=== PATIENT | female | born 1970 | race Caucasian/White ===

== ENCOUNTER → 2018-02-18 10:26 | Outpatient (CLI) | payer OTHER, SELFPAY ==
[2018-02-19 09:01] LABS: HIV Screen 4th Generation wRfx Non Reactive (Non Reactive)
[2018-02-19 14:27] LABS: Hepatitis C Antibody <0.1 s/co ratio (0.0-0.9); Rapid Plasma Reagin Ab Titer Non Reactive (NonRea<1:1)
== END ==
PROVIDERS: PCP Nurse Practitioner Family; Visit Provider Obstetrics & Gynecology
DX: Z20.2 Contact with and (suspected) exposure to infections with a predominantly sexual mode of transmission (principal); R10.9 Unspecified abdominal pain
CPT/HCPCS: 36415; 86592; 86703; 87380; G0432

== ENCOUNTER → 2018-02-26 10:52 | Outpatient (CLI) | payer OTHER, SELFPAY ==
--- NOTE | 2018-02-26 10:55 | US_ITS ---
US transvaginal HISTORY: ITS.REASON: US T/V- Pelvic/Abdominal pain ORDERING PHYSICIAN: Beata Mohr MD PATIENT AGE: 47 years FINDINGS: UTERUS: The uterus measures 7 x 2 x 3 cm. Combined endometrial thickness is 2 mm. There is a well-circumscribed 1.1 x 1.17 m area of decreased echogenicity along the posterior aspect of the uterus body consistent with a fibroid RIGHT OVARY: 1.4 x 0.7 cm, unremarkable LEFT OVARY: 1.9 x 1 cm, unremarkable CUL-DE-SAC FLUID: No cul-de-sac fluid apparent OTHER FINDINGS: None IMPRESSION: 1 cm uterine fibroid otherwise negative pelvic ultrasound
== END ==
PROVIDERS: PCP Nurse Practitioner Family; Visit Provider Obstetrics & Gynecology
DX: R10.9 Unspecified abdominal pain (principal)
CPT/HCPCS: 76830

== ENCOUNTER 2018-07-30 15:30 | Outpatient (RCR) | payer OTHER, SELFPAY ==
--- NOTE | 2018-06-30 12:35 | HMH.PTOPEV ---
PT Outpatient Evaluation Rehab PT Outpatient Evaluation Start: 06/30/18 12:09 Freq: Status: Active Protocol: Document 06/30/18 12:09 PDESEROUX (Rec: 06/30/18 12:34 [email or web address] [id number]) Electronically Signed By Bharat Ramachandran, EDMOND 06/30/18 12:09 Outpatient Therapy Subjective History Subjective History Pt. is a 47 year old female who presents to outpatient PT for LB pain and radicular symptoms on her L side since December 2017 after lifting/picking rocks up in her garden. Pt. reports LLE radicular symptoms this morning (06/30/18). Pt. reported having injections in bilateral hips on 2 different occasions that provided relief for a period of time, but worsened in a few weeks. Pt. denies recent diagnostic imaging. PMH includes bilateral carpel tunnel surgery and installation of a cardiovascular heart stent Apr 3 years ago. Current medication includes Naproxen and a prescribed steroid for her LB that she ran out this past weekend. Chief Complaint Pain Symptom Type Burning Numbness Tingling Symptoms Relieved By Rest/Positioning Heat Prescription Meds Symptoms Aggravated By Bending/Stooping Physical Activity Twisting Lifting Prior Functional Limitations None Current Functional Limitations Reaching Lifting Housework Sleeping Squatting Bending/Stooping Symptom Description Constant and Continuous Level of pain today (0-10) 4 Pain scale - at its best (0-10) 0 Pain scale - at its worst (0-10) 9 Lumbopelvic Eval Posture Thoracic Spine Posture Standing Position Increased Kyphosis Lumbar Spine Posture Standing Position Flexed Assistive device Assistive Devices None / NA Gait Observation General Gait Pattern Observation Decrease Weight B
== END 2018-07-30 15:35 | disposition home or self-care (01) ==
LOC: PT 15:30
PROVIDERS: Visit Provider Emergency Medicine
DX: M54.30 Sciatica, unspecified side (principal)
CPT/HCPCS: 97010; 97012; 97014; 97110; 97140; 97163; G0283

== ENCOUNTER → 2018-08-11 07:52 | Outpatient (CLI) | payer OTHER, SELFPAY ==
--- NOTE | 2018-08-11 07:54 | XR_ITS ---
EXAM: XR lumbar spine min 4V HISTORY: ITS.REASON: pain ORDERING PHYSICIAN: Monica Yoon PATIENT AGE: 47 years COMPARISON: None FINDINGS: Normal alignment. No fracture or dislocation. No lytic or blastic change. There is degenerative disc disease at L2-L3 and to a lesser degree at L3-L4. There is straightening of the lumbar lordosis. IMPRESSION: Degenerative disc disease at L2-L3 and L3-L4
--- NOTE | 2018-08-11 07:54 | XR_ITS ---
XR hip LT 2-3V w/pelvis HISTORY: Left hip pain ITS.REASON: pain ORDERING PHYSICIAN: Monica Yoon PATIENT AGE: 47 years COMPARISON: None FINDINGS: No fracture or dislocation is evident. No significant degenerative change. No lytic or blastic change. Unremarkable soft tissues IMPRESSION: Negative hip
== END ==
PROVIDERS: PCP Emergency Medicine; Visit Provider Nurse Practitioner Family
DX: M25.552 Pain in left hip (principal)
CPT/HCPCS: 72110; 73502

== ENCOUNTER → 2018-11-30 13:39 | Outpatient (POV) | payer OTHER, SELFPAY ==
[2018-11-30 13:53] VITALS: BP 158/89; PULSE 110; RESP 18; O2SAT 98
--- NOTE | 2018-11-30 14:08 | HMH.PMCON ---
Assessment and Plan (1) Lumbar radiculopathy Current visit: Yes Status: Chronic Category: Medical Code(s): M54.16 - Radiculopathy, lumbar region (2) Degenerative disc disease, lumbar Current visit: No Status: Chronic Category: Medical Code(s): M51.36 - Other intervertebral disc degeneration, lumbar region - Assessment and plan all Dx Assessment and Plan for all problems:: We will schedule an L4-L5 lumbar epidural steroid injection given the efficacy of this in the past I do believe it would be beneficial we will also start her on Neurontin 100 mg 1 p.o. nightly. I will follow-up with the patient after injection and reassess her symptoms at that time. Dr. Simpson has reviewed this note and agrees with this plan of care. This note was dictated using voice recognition software and may contain errors or omissions HPI - Data of Consult Consult date: 11/30/18 Requesting Physician: Itzel Mcnair APRN Primary Care Provider: Hari Guallpa APRN - Consult Narrative Reason for consult: Back pain History of present illness: Ms. Blandon is a 47 year old female who presents today for consultation in regards to her low back pain and left leg pain. Patient has low back pain secondary to degenerative disc disease and disc bulge. She has numbness and tingling in her left leg. She rates her pain a 5 out of 10. Patient has had epidural injections in the past she got 80-90% relief for up over 2 months. Patient would like to repeat this. She is not on any anticoagulation therapy. She is continuing a home stretching program. She is currently on anti-inflammatories. CC: Itzel Mcnair APRN [facility] History I have reviewed the patient's past medical history: Yes Medical History: Reports:: Hyperlipidemia, Hypertension Denies:: Anxiety, Depression, Diabetes Mellitus Type 1, Migraine, MRSA, Seizures Laterality Cases: Bilateral: Carpal Tunnel Release Other Surgeries: Yes: Coronary Stent, Other Amputation: No Fractures: No - *Social History Smoking Status: Current every day smoker Tobacco Type: cigarettes # Packs/Day (cigarettes): 1 Alcohol Intake: never Substance Use Type: denies use *Occupational Status:: employed Housing: house Household Members: spouse *Travel in the last 8 weeks: None - Psychiatric History Expresses thoughts of harming self/others: None Suicide Plan Description: No Plan Pschychiatric History:: Denies:: Anxiety, Depression Family Hx:: Heart Attack, Diabetes Review of Systems - Review of Systems ROS General: no recent weight change, no fever, no sleep disturbances Respiratory: no cough, no shortness of air, no recurring pulmonary infections Cardiovascular/Peripheral Vascular: No chest pain, No palpitations, no edema, no shortness of breath. Gastrointestinal: no incontinence, normal bowel movements reported Genitourinary: no incontinence Musculoskeletal: Back pain, left leg pain Psychiatric: normal mood/ affect Neurological: [denies weakness in extremities], [denies balance issues] Meds Home Medications Medication Instructions Recorded Confirmed Type aspirin 81 mg tablet,delayed 81 mg PO QDAY 10/01/17 11/25/18 History release acetaminophen ER 650 mg 650 mg PO Q8H PRN #90 tab 11/20/18 11/25/18 Rx tablet,extended release prednisone 20 mg tablet 20 mg PO BID 5 Days #10 tab 11/20/18 11/25/18 Rx Allergies Allergy/AdvReac Type Severity Reaction Status Date / Time lisinopril [LISINOPRIL] Allergy Mild COUGH Verified 11/25/18 15:15 Objective Vital signs: Pulse Resp BP Pulse Ox 110 H 18 158/89 H 98 11/30/18 13:53 11/30/18 13:53 11/30/18 13:53 11/30/18 13:53 Narrative: Physical Exam General: Alert and oriented x3, no acute distress, pleasant and cooperative, [on room air] Lungs: Resps E/U, Symmetrical chest expansion, Eyes: PERRL Musculoskeletal: Flexion and extension of lumbar spine somewhat guarded secondary to pain, d
--- NOTE | 2018-11-30 14:11 | P.CONS_ITS ---
Assessment and Plan (1) Lumbar radiculopathy Current visit: Yes Status: Chronic Category: Medical Code(s): M54.16 - Radiculopathy, lumbar region (2) Degenerative disc disease, lumbar Current visit: No Status: Chronic Category: Medical Code(s): M51.36 - Other intervertebral disc degeneration, lumbar region - Assessment and plan all Dx Assessment and Plan for all problems:: We will schedule an L4-L5 lumbar epidural steroid injection given the efficacy of this in the past I do believe it would be beneficial we will also start her on Neurontin 100 mg 1 p.o. nightly. I will follow-up with the patient after injection and reassess her symptoms at that time. Dr. Simpson has reviewed this note and agrees with this plan of care. This note was dictated using voice recognition software and may contain errors or omissions HPI - Data of Consult Consult date: 11/30/18 Requesting Physician: Itzel Mcnair APRN Primary Care Provider: Hari Guallpa APRN - Consult Narrative Reason for consult: Back pain History of present illness: Ms. Blandon is a 47 year old female who presents today for consultation in regards to her low back pain and left leg pain. Patient has low back pain secondary to degenerative disc disease and disc bulge. She has numbness and tingling in her left leg. She rates her pain a 5 out of 10. Patient has had epidural injections in the past she got 80-90% relief for up over 2 months. Patient would like to repeat this. She is not on any anticoagulation therapy. She is continuing a home stretching program. She is currently on anti- inflammatories. CC: Itzel Mcnair APRN [facility] History I have reviewed the patient's past medical history: Yes Medical History: Reports:: Hyperlipidemia, Hypertension Denies:: Anxiety, Depression, Diabetes Mellitus Type 1, Migraine, MRSA, Seizures Laterality Cases: Bilateral: Carpal Tunnel Release Other Surgeries: Yes: Coronary Stent, Other Amputation: No Fractures: No - *Social History Smoking Status: Current every day smoker Tobacco Type: cigarettes # Packs/Day (cigarettes): 1 Alcohol Intake: never Substance Use Type: denies use *Occupational Status:: employed Housing: house Household Members: spouse *Travel in the last 8 weeks: None - Psychiatric History Expresses thoughts of harming self/others: None Suicide Plan Description: No Plan Pschychiatric History:: Denies:: Anxiety, Depression Family Hx:: Heart Attack, Diabetes Review of Systems - Review of Systems ROS General: no recent weight change, no fever, no sleep disturbances Respiratory: no cough, no shortness of air, no recurring pulmonary infections Cardiovascular/Peripheral Vascular: No chest pain, No palpitations, no edema, no shortness of breath. Gastrointestinal: no incontinence, normal bowel movements reported Genitourinary: no incontinence Musculoskeletal: Back pain, left leg pain Psychiatric: normal mood/ affect Neurological: [denies weakness in extremities], [denies balance issues] Meds Home Medications Medication Instructions Recorded Confirmed Type aspirin 81 mg tablet,delayed 81 mg PO QDAY 10/01/17 11/25/18 History release acetaminophen ER 650 mg 650 mg PO Q8H PRN #90 tab 11/20/18 11/25/18 Rx tablet,extended release prednisone 20 mg tablet 20 mg PO BID 5 Days #10 tab 11/20/18 11/25/18 Rx Allergies
== END ==
PROVIDERS: PCP Nurse Practitioner Family; Visit Provider Clinical Nurse Specialist Family Health
DX: M51.16 Intervertebral disc disorders with radiculopathy, lumbar region (principal)
CPT/HCPCS: 99202

== ENCOUNTER → 2018-12-28 09:11 | Outpatient (POV) | payer OTHER, SELFPAY ==
[2018-12-28 09:27] VITALS: BP 153/98; PULSE 128; RESP 18; O2SAT 99; BMI 23.9
--- NOTE | 2018-12-28 09:57 | P.CONS_ITS ---
[facility] Pain Management SOAP Note Subjective:: Patient is a pleasant 48-year-old female who presents today for follow-up after a left SI joint injection. Patient did not get any relief from this she went to the ER recently with complaint of worsening back pain. Patient did have a new CT scan. There was a continuation of the L4-L5 paracentral and foraminal disc protrusion On the left side. Patient and I had a discussion in regards to plan of care. Patient states the gabapentin does help somewhat she rates her pain a 7 out of 10 today. ROS General: no recent weight change, no fever, no sleep disturbances Respiratory: no cough, no shortness of air, no recurring pulmonary infections Cardiovascular/Peripheral Vascular: No chest pain, No palpitations, no edema, no shortness of breath. Gastrointestinal: no incontinence, normal bowel movements reported Genitourinary: no incontinence Musculoskeletal: Back pain, leg pain Psychiatric: normal mood/ affect Neurological: [denies weakness in extremities], [denies balance issues] Objective:: Physical Exam General: Alert and oriented x3, no acute distress, pleasant and cooperative, [on room air] Lungs: Resps E/U, Symmetrical chest expansion, Eyes: PERRL Musculoskeletal: Flexion and extension of lumbar spine somewhat guarded secondary to pain, deep tendon reflexes normal, strength in upper and lower extremities [5/5], [abnormal gait noted] positive straight leg raise test on 30 degrees on the left side. Neurological: speech clear, administrative sales assistant equal, no gross sensory deficits Assessment:: Degenerative disc disease lumbar spine with lumbar radiculopathy, bulging disc Plan:: We will schedule L4-L5 left transforaminal epidural steroid injection. We will also set her up with a neurosurgeon for consultation. Patient has been instructed to bring her MRI disc. We will also increase her gabapentin to [address] Simpson has reviewed this note and agrees with this plan of care. This note was dictated using voice recognition software and may contain errors or omissions
== END ==
PROVIDERS: PCP Physician Assistant; Visit Provider Clinical Nurse Specialist Family Health
DX: M51.16 Intervertebral disc disorders with radiculopathy, lumbar region (principal)
CPT/HCPCS: 99212

== ENCOUNTER → 2019-05-11 16:05 | Outpatient (CLI) | payer OTHER, SELFPAY ==
--- NOTE | 2019-05-11 16:10 | MR_ITS ---
PROCEDURE: MR LUMBAR SPINE WO CON CLINICAL INDICATION: LUMBAR SPINE PAIN Low back pain, left leg pain and numbness and tingling COMPARISON: SPLUMBWO CT lumbar spine wo con from 12/22/2018 TECHNIQUE: Standard multiplanar multiecho sequences are performed without contrast. 3-D MIP and myelographic images are also rendered and reviewed FINDINGS: There is normal alignment with slight reversal of the lumbar lordosis. The spinal cord ends at the L1 level. T11-T12: Mild disc desiccation. T12-L1: Mild degenerative disc disease. L1-L2: Mild degenerative disc disease with small Schmorl's nodes along the endplates L2-L3: Degenerate disc disease with minimal bulging disc and type 1 endplate changes anteriorly. L3-L4: Degenerate disc disease with mild bulging disc. There is mild facet and ligamentum hypertrophic change. The disc is slightly eccentric toward the right with mild right lateral recess and foraminal narrowing. L4-5: Mild degenerative disc disease. There is a small left paracentral and foraminal disc herniation. The disc is slightly extruded superiorly. There is impingement upon the exiting L4 nerve root L5-S1: Unremarkable. Incidental note made of a 2.4 cm right renal cyst. IMPRESSION: 1. Small left paracentral and foraminal disc herniation with superior extrusion of the disc at L4-5 2. Multilevel degenerative changes as detailed above. Dictated by: Fab Aguirre MD 05/12/2019 11:21 Signed by: <Electronically signed by Fab Aguirre MD in [place]> 05/12/2019 11:21
== END ==
PROVIDERS: PCP Physician Assistant; Visit Provider Orthopaedic Surgery
DX: M54.5 Low back pain (principal)
CPT/HCPCS: 72148; 76376

== ENCOUNTER → 2019-06-18 11:58 | Outpatient (CLI) | payer OTHER, SELFPAY ==
[2019-06-18 11:59] LABS: Microscopic, Urine URINE MICROSCOPIC (MICROSCOPIC)
--- NOTE | 2019-06-18 12:12 | XR_ITS ---
PROCEDURE: XR CHEST 2V CLINICAL HISTORY: Pre OP COMPARISON: CXR1 CHEST-PORTABLE from 05/01/2015 CXR CHEST(2 VIEWS-NOT PORTABLE) from 08/31/2015 CXR1 CHEST-PORTABLE from 05/27/2017 FINDINGS: The cardiomediastinal silhouette and pulmonary vascularity are within normal limits. Mild to moderate emphysematous changes are noted with hyperexpansion of the lung kendrick and flattening and depression of the hemidiaphragms. There is no infiltrate. There is no pleural fluid. There are moderate degenerative changes midthoracic spine IMPRESSION: Mild to moderate COPD, no acute chest pathology noted Dictated by: Dr. Santos Jo MD 06/18/2019 12:[address] Santos Jo MD in [place] 06/18/2019 12:28
[2019-06-18 12:26] LABS: Appearance,Urine CLEAR (Clear); Bilirubin,Urine Negative (Negative); Blood, Urine Negative (Negative); Color,Urine YELLOW (Yellow); Glucose,Urine (UA) Negative (Negative); Ketones,Urine Negative (Negative); Leukocyte Esterase,Urine Negative (Negative); Nitrate,Urine Negative (Negative); PH,Urine 6.5 (5.0-8.5); Protein,Urine Negative (Negative); Urobilinogen,Urine 0.2 EU/dl (0.2)
--- NOTE | 2019-06-18 12:31 | ECG_ITS ---
APPROVED REPORT Exam: Resting ECG HR:128 bpm ECG Measurements Heart Rate [address] 128 P 79 QRSd 72 QRS 99 QT 304 T 53 QTc 443 <Conclusion> Sinus tachycardia Right atrial enlargement Rightward axis Nonspecific ST-T abnormalities Abnormal ECG Electronically signed by : Abdi Tijerina, 06/18/2019 18:24:11
[2019-06-18 12:37] LABS: Basophils # 0.1 K/mm3 (0-0.2); Basophils % 0.7 % (0.1-2.0); Eosinophils # 0.4 K/mm3 (0.0-0.4); Hematocrit 51.4 % (37.0-47.0); Hemoglobin 15.9 g/dL (12.2-16.2); Lymphocytes # 2.3 K/mm3 (0.7-4.5); Lymphocytes % 22.9 % (10-50); Mean Corpuscular Volume 96.8 fl (81-99); Mean Platelet Volume 8.5 fl (7.4-10.4); Monocytes # 0.7 K/mm3 (0.1-1.0); Monocytes % 6.7 % (1.7-9.3); Neutrophils # 6.7 K/mm3 (1.8-7.8); Neutrophils % 65.6 % (37.0-80.0); Platelet Count 203 K/mm3 (142-424); Red Blood Count 5.31 M/mm3 (4.20-5.40); Red Cell Distribution Width 13.5 % (11.5-17.5); White Blood Count 10.2 K/mm3 (4.8-10.8)
[2019-06-18 12:50] LABS: Bacteria,Urine Trace /lpf; Squamous Epithelial Cell,Urine Occasional #/hpf (0-5)
[2019-06-18 12:51] LABS: Activated Partial Thrombo Time 26.8 seconds (23.6-34.0); INR 0.95 (0.9-1.1); Prothrombin Time 9.9 seconds (9.4-11.8)
[2019-06-18 13:17] LABS: Alanine Aminotransferase 27 U/L (12-78); Albumin Level 4.2 gm/dL (3.4-5.0); Albumin/Globulin Ratio 1.3 (1.1-1.8); Alkaline Phosphatase 66 U/L (46-116); Anion Gap 14.8 mEq/L (5-15); Aspartate Amino Transferase 21 U/L (15-37); Bilirubin,Total 0.5 mg/dL (0.2-1.0); Blood Urea Nitrogen 15 mg/dL (7-18); Calcium 9.9 mg/dL (8.5-10.1); Carbon Dioxide 27 mmol/L (21.0-32.0); Chloride 102 mmol/L (98-107); Creatinine,Serum 0.65 mg/dL (0.55-1.02); Estimated Glomerular Filt Rate 96 ml/min (>60); GFR (African American) 117 ML/MIN (>60); Globulin 3.3 gm/dl (1.3-3.2); Glucose 92 mg/dL (74-106); Potassium 3.8 mmoL/L (3.5-5.1); Sodium 140 mmol/L (136-145); Total Protein,Serum 7.5 gm/dL (6.4-8.2)
== END ==
PROVIDERS: Visit Provider Physician Assistant
DX: M51.36 Other intervertebral disc degeneration, lumbar region (principal); Z01.818 Encounter for other preprocedural examination; Z51.81 Encounter for therapeutic drug level monitoring
CPT/HCPCS: 36415; 71046; 80053; 81001; 85025; 85610; 85730; 93005

== ENCOUNTER → 2019-06-25 07:17 | Outpatient (CLI) | payer OTHER, SELFPAY ==
--- NOTE | 2019-06-25 07:18 | CA_ITS ---
APPROVED REPORT Exam: Pharmacologic Technologist: aaliyah kolb, Ht: 5 ft 9 in Wt: 150 lbs BSA: 1.83 m2 HR: 74 bpm BP: 126/77 mmHg Rhythm: NSR Indications: Pre-OP Medical History Medications: Asa,,,,, Allergies: Lisinopril Cardiac Risk Factors: Smoking, FHX of CAD Stress Test Details Test: LEXISCAN HR Resting HR: 79 bpm Max Heart Rate (APMHR): 170 bpm Max HR Achieved: 127 bpm Target HR (85% APMHR): 144 bpm % of APMHR: 74 Recovery HR: 109 bpm BP Resting BP: 126/77 mmHg Max BP: 138/76 mmHg Recovery BP: 127.0/82.0 mmHg ECG Resting ECG: Normal Sinus Arrhythmia: None Clinical Exercise duration: 04:00 min Highest Stage Achieved: Exercise capacity: 1.0 METs Stress ECG Conclusion Lexiscan Protocol completed. C/O SOB at peak infusion. Symptoms: No CP, SOB at peak infusion. Arrhythmias/Ectopy: None ST-T Changes: Greater than 1.5mm ST Depression in AVF. Otherwise less than 1.5mm ST Depression Non-Diagnostic Lexiscan Images to follow. Test Summary RECOVERY 04:08 . . 102 . 116/ 74 . . Stage 1 01:00 . . 122 . . . . Stage 2 01:00 . . 126 . 137/ 79 . . Stage 3 01:00 . . 114 . 128/ 84 . . Stage 4 01:00 . . 111 . 138/ 76 . Stop exercise at 04:00 RECOVERY 01:00 . . 100 . 127/ 82 . . RECOVERY 02:00 . . 99 . 118/ 78 . . RECOVERY 03:00 . . 110 . 124/ 70 . . RECOVERY 04:00 . . 96 . 116/ 74 . . RECOVERY 04:08 . . 102 . 116/ 74 . . Electronically signed by : Damián Nicolas, 06/25/2019 13:18:28
--- NOTE | 2019-06-25 07:18 | CA_ITS ---
APPROVED REPORT EXAM: Comprehensive 2D, Doppler, and color-flow Echocardiogram Body Mechanic Apprentice: Lorie Gordon CRT Ht: 5 ft 7 in Wt: 149lbs BSA: 1.78 BP: 131/99 mmHg Indications: CAD, [place], Stent, pre-op back surgery 2D Dimensions LVOT 2.00 cm (M/F) 1.5-2.5 M-Mode Dimensions RVDd 2.60 cm (0.9-2.6) LA Diam 3.60 cm (1.9-4.0) LVDd 4.60 cm (3.5-5.7) Ao Diam 2.70 cm (2.0-3.7) LVDs 3.30 cm (3.5-5.7) IVSd 0.80 cm (0.6-1.1) PWd 0.70 cm (0.6-1.1) EF (Teich) 54.70% FS 28.30% EDV (Teich) 97.30 mL ESV (Teich) 44.10 mL LV Diastology E/A Ratio 1.20 MED E' 8.29 (< 7 cm/sec) E'/MED E' Ratio 9.80 (>14) LAT E' 8.29 (<10 cm/sec) E/LAT E' Ratio 9.80 (>14) Aortic Valve AoV Peak Nacho. 126.00 (50-130 cm/s) AO Peak GR. 6.00 mmHg Mitral Valve MV E Max Nacho. 81.40 (40-130 cm/s) MV A Velocity 69.10 (40-130 cm/s) E/A Ratio 1.20 Pulmonary Valve PA Accel Time 180.00 (>120 msec) Left Ventricle Left atrium is mildly enlarged, left ventricle is normal size, there is no concentric left ventricular hypertrophy, visually estimated ejection fraction 50% with no regional wall motion abnormality, endocardial surfaces are poorly visualized. Grade 1 diastolic dysfunction seen without tissue Doppler evidence of raise left atrial pressure. Right Ventricle Right atrium and right ventricular normal size and contractility. Aortic Valve Aortic valve is minimally thickened and fibrosed. Mitral Valve Mitral valve is grossly normal, there is mild mitral regurgitant Tricuspid Valve Tricuspid valve is grossly normal, there is mild tricuspid regurgitation. Pulmonic Valve Pulmonic valve is poorly visualized. Great Vessels Aortic root is normal size. Pericardium No significant pericardial effusion noted. Conclusion 1. Mildly enlarged left atrium, normal left ventricular size, visually estimated ejection fraction 50% with no regional wall motion abnormality, grade 1 diastolic dysfunction seen without tissue Doppler evidence of raise left atrial pressure. 2. Mild mitral and tricuspid regurgitation 3. No significant pericardial effusion noted. Electronically signed by : Damián Nicolas, 06/25/2019 14:13:34
--- NOTE | 2019-06-25 07:18 | NM_ITS ---
APPROVED REPORT Exam: Nuclear Stress Test Indication: pre-op surgery, hyperlipidemia,prev stent Patient Location: Outpatient Stress Tech: Eloisayoan Patel AR Tech:Lexie Bourgeois HEATHER RT(R)(N) Ht: 5 ft 7 in Wt: 150 lbs Bra Size: 36b HR: 74 bpm BP: 126/77 mmHg BSA: 1.79 m2 BMI: 23.4 History: pre-op surgery, hyperlipidemia,prev stent Procedure: Patient received a 0.4 mg of intravenous Lexiscan, resting heart rate 77 bpm, resting blood pressure 126/77 mmHg, with Lexiscan maximum heart rate achived was 123 bpm which is Less than 85 % of the maximum predicted heart rate and blood pressure was 124/72 mmHg. With Lexiscan, patient denied any complaint of chest pain. Electrocardiogram Resting electrocardiogram showed sinus rhythm, with Lexiscan there is less than 1.[address] segment depression noted from the baseline EKG. The EKG portion of the Lexiscan Myoview is nondiagnostic. Cardiac Stress and Resting SPECT Images: Cardiac Stress and Resting SPECT images were obtained using technetium 99m Myoview 29.9 mCi stress and 10.57 mCi at rest. Gated SPECT with analysis of segmental wall motion and calculation of the ejection fraction also done. Cardiac stress and resting SPECT images show uniform myocardial activity without segmental perfusion abnormality, computer derived ejection fraction is 61% with no regional wall motion abnormality, right ventricle is normal size and contractility. Conclusion: 1. The EKG portion of the Lexiscan Myoview is nondiagnostic. 2. No scintigraphic evidence of reversible ischemia seen, computer derived ejection fraction is 61% with no regional wall motion abnormality, right ventricle is normal size and contractility. 3. Normal Lexiscan Myoview study. Electronically signed by : Damián Nicolas, 06/25/2019 13:18:08
--- NOTE | 2019-06-25 11:10 | HMH.ITSHM ---
Current Home Medications as stated by this patient Mary Blandon or patient support representative. [] asa
== END ==
PROVIDERS: PCP Physician Assistant; Visit Provider Physician Assistant
DX: Z01.810 Encounter for preprocedural cardiovascular examination (principal); I25.10 Atherosclerotic heart disease of native coronary artery without angina pectoris; E78.5 Hyperlipidemia, unspecified; I10 Essential (primary) hypertension
CPT/HCPCS: 78452; 93017; 93306; A9502; J2785

== ENCOUNTER → 2019-10-06 18:02 | Outpatient (CLI) | payer BC, SELFPAY ==
[2019-10-09 12:22] LABS: Neisseria gonorrhoeae, NAA Negative (Negative)
== END ==
PROVIDERS: Visit Provider Nurse Practitioner Family
DX: M54.9 Dorsalgia, unspecified (principal)
CPT/HCPCS: 87086; 87591

== ENCOUNTER → 2019-10-15 15:26 | Outpatient (CLI) | payer BC, SELFPAY ==
[2019-10-20 10:45] LABS: Neisseria gonorrhoeae, NAA Negative (Negative)
== END ==
PROVIDERS: Visit Provider Nurse Practitioner Family
DX: N89.8 Other specified noninflammatory disorders of vagina (principal)
CPT/HCPCS: 87210; 87491; 87591

== ENCOUNTER → 2019-12-30 12:37 | Outpatient (CLI) | payer BC, SELFPAY ==
--- NOTE | 2019-12-30 12:37 | US_ITS ---
PROCEDURE: US TRANSVAGINAL CLINICAL INDICATION: pelvic pain Right recent 6 cells COMPARISON: TRANVAG US transvaginal from 02/26/2018 FINDINGS: UTERUS: 7cm x 3cmx 3cm with a combined endometrial thickness of 4.8mm LEFT OVARY: [id number] with a volume of 3.4ml. RIGHT OVARY: [id number] with a volume of 2.6ml. A slightly hypoechoic nodules present along the posterior aspect of the uterus at that 0.2 x 0.8 cm consistent with a fibroid. No cul-de-sac fluid evident. IMPRESSION: 1 cm fibroid involving the posterior aspect of the uterus otherwise negative Dictated by: Fab Aguirre MD 12/30/2019 17:04 Electronically signed by Fab Aguirre MD in [place] 12/30/2019 17:04
== END ==
PROVIDERS: PCP Physician Assistant; Visit Provider Obstetrics & Gynecology
DX: R10.2 Pelvic and perineal pain (principal)
CPT/HCPCS: 76830

== ENCOUNTER → 2020-01-17 17:06 | Outpatient (CLI) | payer BC, SELFPAY ==
[2020-01-17 17:08] LABS: Microscopic, Urine URINE MICROSCOPIC (MICROSCOPIC)
[2020-01-17 17:54] LABS: Appearance,Urine CLEAR (Clear); Bilirubin,Urine Negative (Negative); Blood, Urine 2+ (Negative); Color,Urine YELLOW (Yellow); Glucose,Urine (UA) Negative (Negative); Ketones,Urine Negative (Negative); Leukocyte Esterase,Urine 2+ (Negative); Nitrate,Urine Negative (Negative); Protein,Urine Negative (Negative); Specific Gravity, Urine >= 1.030 (1.005-1.030); Urobilinogen,Urine 0.2 EU/dl (0.2)
[2020-01-17 18:05] LABS: RBC,Urine 20-50 #/hpf (0-3); WBC,Urine 20-50 #/hpf (0-3)
[2020-01-17 18:06] LABS: Bacteria,Urine Trace /lpf
[2020-01-21 09:15] LABS: Neisseria gonorrhoeae, NAA Negative (Negative)
== END ==
PROVIDERS: Visit Provider Nurse Practitioner Obstetrics & Gynecology
DX: N89.8 Other specified noninflammatory disorders of vagina (principal); R10.2 Pelvic and perineal pain
CPT/HCPCS: 81001; 87086; 87088; 87186; 87491; 87591

== ENCOUNTER 2021-05-20 10:44 | Emergency (ER) | payer BC, SELFPAY ==
[2021-05-20 12:14] VITALS: BP 149/97; PULSE 105; RESP 18; TEMP 36.8; O2SAT 99; BMI 21.9
[2021-05-20 12:31] VITALS: BP 149/97; PULSE 105; RESP 18; TEMP 36.8
--- NOTE | 2021-05-20 12:43 | HMH.EDUTC ---
[facility] [place] Clinical Impression: Exposure to COVID-19 virus Disposition: Home, Self-Care Condition on Discharge: Good Instructions: Preventing the Spread of Coronavirus Discharge Instructions Referrals: Cami Cormier PA [Primary Care Provider] - Time of Disposition: 12:46 Medical Decision Making - Jesus Inquiry Pt receiving controlled substance: No Vital Signs: 05/20/21 12:14 05/20/21 12:31 Temperature 98.3 F 98.3 F Temperature Source Oral Pulse Rate 105 H Pulse Rate [Left] 105 H Respiratory Rate 18 18 Blood Pressure 149/97 H Blood Pressure [Right Arm] 149/97 H Blood Pressure Mean [Right Arm] 114 02 Sat by Pulse Oximetry 99 [facility] [place] - General Stated complaint: covid test/exposure Time Seen by Provider: 05/20/21 12:43 Mode of Arrival: Ambulatory Source of Information: Patient Limitations: No Limitations Description of Symptoms (Recalled from Triage Doc. by RN): covid test. asymptomatic. exposed at work. HEENT Symptoms (Recalled from RN notes): No Resp Symptoms (Recalled from RN notes): No Skin Symptoms (Recalled from RN notes): No MS Symptoms (Recalled from RN notes): No Functional Status (Recalled from RN notes): na - History of Present Illness Provider Complaint: 2 positive COVID19 cases at work. She has been vaccinated and is asymptomatic but would like to be tested to be safe. Onset (ago): day(s) (1) Relieving factors: none Exacerbating factors: none Associated symptoms: denies other symptoms Treatments prior to arrival: none - Related Data Home Medications Medication Instructions Recorded Confirmed aspirin 81 mg tablet,delayed 81 mg PO DAILY 06/22/19 04/13/20 release Previous Rx's Medication Instructions Recorded buspirone 10 mg tablet 10 mg PO BID #180 tab 05/03/21 Allergies Allergy/AdvReac Type Severity Reaction Status Date / Time lisinopril [LISINOPRIL] Allergy Mild COUGH Verified 04/13/20 14:00 - Worker's Comp Is this a Worker's Comp case?: No [place] History - Hepatitis A Screen Drug use history?: No High risk sexual behaviors?: No History of sexually transmitted infection?: No Currently employed?: No Childcare worker?: No Do you have indoor plumbing?: Yes Do you have electricity?: Yes Attestation statement:: This patient has been screened for Hepatitis A risk factors. I have reviewed the patient's past medical history: Yes Medical History: Reports:: Hyperlipidemia, Hypertension, Myocardial Infarction Denies:: Anxiety, Cancer, Depression, Diabetes Mellitus Type 1, Diabetes Mellitus Type 2, Migraine, MRSA, Seizures Comment: AMI with LAD stent 99% Blockage Laterality Cases: Bilateral: Carpal Tunnel Release Other Surgeries: Yes: Cardiac Catheterization, Coronary Stent, Other Amputation: No Fractures: No Comment: Heart Cath, Heart Stent, Heart Attack. Back surgery for herniated disc - Social History Smoking Status: Current every day smoker Tobacco Type: cigarettes # Packs/Day (cigarettes): 1 Alcohol Intake: never Substance Use Type: denies use Occupational Status: employed Housing: house Household Members: spouse - Psychiatric History Pschychiatric History:: Denies:: Anxiety, Depression Family Hx:: Heart Attack, Diabetes ROS Obtained: Yes All systems reviewed & no additional complaints Physical Exam - General General appearance: alert, in no apparent distress - Head Head exam: normocephalic - Eye Eye exam: Present: PERRL - ENT ENT exam: Present: normal oropharynx, TM's normal bilaterally - Neck Neck exam: Present: normal inspection. Absent: lymphadenopathy - Chest Chest inspection: Present: normal inspection, symmetric chest wall rise - Respiratory Respiratory exam: Present: normal lung sounds bilaterally - Cardiovascular Cardiovascular exam: Present: regular rate, normal rhythm - Neurological Exam Neurological exam: Present: alert, oriented X3 - Psychiatric Psychiatric exam: Present: no
== END 2021-05-20 14:32 | disposition home or self-care (01) ==
PROVIDERS: Emergency Provider Physician Assistant; PCP Physician Assistant
DX: Z20.822 Contact with and (suspected) exposure to COVID-19 (principal); E78.5 Hyperlipidemia, unspecified; I10 Essential (primary) hypertension; I25.2 Old myocardial infarction; F17.210 Nicotine dependence, cigarettes, uncomplicated; Z79.899 Other long term (current) drug therapy
CPT/HCPCS: 99202; G0463; U0003

== ENCOUNTER → 2023-02-24 14:49 | Outpatient (CLI) | payer BC, OTHER, SELFPAY | PROVIDERS: PCP Physician Assistant; Visit Provider Physician Assistant | DX: R82.90 Unspecified abnormal findings in urine (principal) | CPT/HCPCS: 87086 ==

== ENCOUNTER → 2023-09-10 23:24 | Outpatient (CLI) | payer OTHER, SELFPAY ==
[2023-09-10 19:01] LABS: Coronavirus 19, PCR Not Detected (NotDetected); Influenza A, PCR Not Detected (NotDetected); Influenza B, PCR Not Detected (NotDetected)
[2023-09-10 19:23] LABS: Basophils # 0.1 K/mm3 (0-0.2); Basophils % 0.6 % (0.1-2.0); Eosinophils # 0.3 K/mm3 (0.0-0.4); Eosinophils % 2.8 % (0.1-12.0); Hematocrit 48.3 % (37.0-47.0); Hemoglobin 16.4 g/dL (12.2-16.2); Lymphocytes # 2.4 K/mm3 (0.7-4.5); Lymphocytes % 22.9 % (10-50); Mean Corpuscular HGB Conc 33.9 g/dL (31.8-35.4); Mean Corpuscular Hemoglobin 32.3 pg (27.0-31.2); Mean Corpuscular Volume 95.5 fl (81-99); Mean Platelet Volume 9.8 fl (7.4-10.4); Monocytes # 0.6 K/mm3 (0.1-1.0); Monocytes % 5.4 % (1.7-9.3); Neutrophils % 68.3 % (37.0-80.0); Platelet Count 164 K/mm3 (142-424); Red Blood Count 5.06 M/mm3 (4.20-5.40); White Blood Count 10.3 K/mm3 (4.8-10.8)
[2023-09-10 19:49] LABS: Hemoglobin A1C 5.3 % (4.0-6.0)
[2023-09-10 20:23] LABS: Alanine Aminotransferase 26 U/L (12-78); Albumin Level 4.6 g/dl (3.5-5.0); Albumin/Globulin Ratio 1.5 (1.1-1.8); Alkaline Phosphatase 79 U/L (38-126); Anion Gap 12.7 mEq/L (5-15); Aspartate Amino Transferase 32 U/L (14-36); Bilirubin,Total 0.6 mg/dl (0.2-1.3); Blood Urea Nitrogen 18 mg/dl (7-17); Calcium 9.4 mg/dl (8.4-10.2); Carbon Dioxide 26 mmol/L (22.0-30.0); Chloride 102 mmol/L (98-107); Chol/HDL Ratio 3.6 (1-3.5); Cholesterol 258 mg/dl (140-200); Estimated Glomerular Filt Rate 75 ml/min (>60); GFR (African American) 90 ML/MIN (>60); Globulin 3.1 g/dL (1.3-3.2); Glucose 91 mg/dl (74-100); HDL Cholesterol 72 mg/dl (40-60); Potassium 3.7 mmoL/L (3.5-5.1); Sodium 137 mmol/L (136-145); Total Protein,Serum 7.7 g/dl (6.3-8.2); Triglycerides 217 mg/dl (30-150); VLDL Cholesterol 43 mg/dL (0-40)
[2023-09-10 20:34] LABS: Direct LDL Cholesterol 146.72 mg/dL (100-129)
[2023-09-10 20:54] LABS: Thyroid Stimulating Hormone 1.81 uIU/mL (0.465-4.68)
== END ==
LOC: LAB.DROPOF 23:25
PROVIDERS: PCP Physician Assistant; Visit Provider Family Medicine
DX: J32.9 Chronic sinusitis, unspecified (principal); R06.02 Shortness of breath; R06.2 Wheezing; I10 Essential (primary) hypertension; E78.5 Hyperlipidemia, unspecified; Z79.899 Other long term (current) drug therapy
CPT/HCPCS: 80053; 80061; 83036; 84443; 85025; 87636

== ENCOUNTER 2024-04-05 11:28 | Outpatient (CLI) | payer BC, SELFPAY | END 2024-04-05 23:59 | disposition home or self-care (01) | LOC: LAB.DROPOF 04-06 11:53 | PROVIDERS: PCP Student in an Organized Health Care Education/Training Program; Visit Provider Student in an Organized Health Care Education/Training Program | DX: J04.0 Acute laryngitis (principal); F17.210 Nicotine dependence, cigarettes, uncomplicated | CPT/HCPCS: 87070 ==

== ENCOUNTER 2024-07-09 09:07 | Outpatient (CLI) | payer BC, SELFPAY ==
--- NOTE | 2024-07-09 09:10 | XR_ITS ---
PROCEDURE INFORMATION: Exam: XR Chest Exam date and time: 07/09/2024 9:15 AM Age: 53 years old Clinical indication: Left-sided; Patient HX: Lt sided pain when breathing, cough; Additional info: L thoracic back pain TECHNIQUE: Imaging protocol: Radiologic exam of the chest. Views: 2 views. COMPARISON: CR XR CHEST 2V 07/09/2024 9:15 AM FINDINGS: Lungs: Unremarkable. No consolidation. Pleural spaces: Unremarkable. No pleural effusion. No pneumothorax. Heart/Mediastinum: Unremarkable. No cardiomegaly. Bones/joints: Unremarkable. IMPRESSION: No acute findings.
== END 2024-07-09 23:59 | disposition home or self-care (01) ==
LOC: RAD 09:08
PROVIDERS: PCP Student in an Organized Health Care Education/Training Program; Visit Provider Student in an Organized Health Care Education/Training Program
DX: M54.6 Pain in thoracic spine (principal)
CPT/HCPCS: 71046

== ENCOUNTER 2024-07-14 15:02 | Outpatient (CLI) | payer BC, SELFPAY ==
[2024-07-14 15:29] LABS: Basophils % 0.4 % (0.1-2.0); Eosinophils # 0.1 K/mm3 (0.0-0.4); Eosinophils % 1.2 % (0.1-12.0); Hematocrit 44.6 % (37.0-47.0); Hemoglobin 15.3 g/dL (12.2-16.2); Lymphocytes # 1.6 K/mm3 (0.7-4.5); Mean Corpuscular HGB Conc 34.2 g/dL (31.8-35.4); Mean Corpuscular Hemoglobin 32.5 pg (27.0-31.2); Mean Corpuscular Volume 95.1 fl (81-99); Mean Platelet Volume 8.7 fl (7.4-10.4); Monocytes # 0.5 K/mm3 (0.1-1.0); Monocytes % 4.6 % (1.7-9.3); Neutrophils # 8.2 K/mm3 (1.8-7.8); Neutrophils % 78.7 % (37.0-80.0); Platelet Count 187 K/mm3 (142-424); Red Cell Distribution Width 13.4 % (11.5-17.5); White Blood Count 10.4 K/mm3 (4.8-10.8)
[2024-07-14 16:02] LABS: D-Dimer 0.39 ug/mL (0.0-0.5)
[2024-07-14 16:13] LABS: Alanine Aminotransferase 26 U/L (12-78); Albumin Level 4.5 g/dl (3.5-5.0); Alkaline Phosphatase 54 U/L (38-126); Anion Gap 11.2 mEq/L (5-15); Aspartate Amino Transferase 28 U/L (14-36); Bilirubin,Direct 0.3 mg/dl (0.0-0.4); Bilirubin,Indirect 0.3 mg/dL (0.0-0.9); Bilirubin,Total 0.6 mg/dl (0.2-1.3); Bilirubin,Unconjugated 0.3 mg/dL (0.0-1.1); Blood Urea Nitrogen 27 mg/dl (7-17); Carbon Dioxide 29 mmol/L (22.0-30.0); Chloride 105 mmol/L (98-107); Chol/HDL Ratio 1.9 (1-3.5); Cholesterol 182 mg/dl (140-200); Estimated Glomerular Filt Rate 74 ml/min (>60); GFR (African American) 90 ML/MIN (>60); Glucose 113 mg/dl (74-100); HDL Cholesterol 97 mg/dl (40-60); Potassium 4.2 mmoL/L (3.5-5.1); Sodium 141 mmol/L (136-145); Triglycerides 92 mg/dl (30-150); VLDL Cholesterol 18 mg/dL (0-40)
[2024-07-14 16:23] LABS: Direct LDL Cholesterol 85.38 mg/dL (100-129)
[2024-07-14 16:43] LABS: Thyroid Stimulating Hormone 1.03 uIU/mL (0.465-4.68)
[2024-07-14 19:06] LABS: Free T4 (Free Thyroxine) 0.99 ng/dl (0.78-2.19)
== END 2024-07-14 23:59 | disposition home or self-care (01) ==
LOC: LAB 15:04
PROVIDERS: Physician Assistant; PCP Student in an Organized Health Care Education/Training Program; Visit Provider Internal Medicine
DX: I25.10 Atherosclerotic heart disease of native coronary artery without angina pectoris (principal); Z01.810 Encounter for preprocedural cardiovascular examination; I10 Essential (primary) hypertension; E78.2 Mixed hyperlipidemia; Z72.0 Tobacco use
CPT/HCPCS: 36415; 80048; 80061; 80076; 84439; 84443; 85025; 85378

== ENCOUNTER 2024-07-26 16:45 | Outpatient (CLI) | payer BC, SELFPAY ==
--- NOTE | 2024-07-26 16:45 | MM_ITS ---
PROCEDURE INFORMATION: Exam: MG Bilateral Screening 3D Mammography Exam date and time: 07/26/2024 4:31 PM Age: 53 years old Clinical indication: Screening examination. TECHNIQUE: Imaging protocol: Bilateral Screening tomosynthesis and 2D mammography including computer-aided detection (CAD) when performed. COMPARISON: 1. MG DMDXUAVR DIG MAMM-DX UNI A/VW-RT W/CAD 01/28/2017 1:56 PM 2. MG DMSB DIG MAMM-SCREEN ERICK W/CAD 01/09/2017 8:28 AM FINDINGS: MAMMOGRAPHY: Breast composition: There are scattered areas of fibroglandular density. Mass: None. Architectural distortion: None. Calcifications: No suspicious calcifications. Asymmetric density: None. Skin thickening: None. Axillary adenopathy: None. IMPRESSION: No mammographic evidence of malignancy. Annual screening is recommended unless otherwise clinically indicated. ASSESSMENT: BI-RADS Category 1: Negative.
== END 2024-07-26 23:59 | disposition home or self-care (01) ==
LOC: RAD 16:45
PROVIDERS: PCP Student in an Organized Health Care Education/Training Program; Visit Provider Student in an Organized Health Care Education/Training Program
DX: Z12.31 Encounter for screening mammogram for malignant neoplasm of breast (principal)
CPT/HCPCS: 77063; 77067

== ENCOUNTER 2024-08-04 14:47 | Outpatient (CLI) | payer BC, SELFPAY ==
--- NOTE | 2024-08-04 14:47 | CT_ITS ---
FINAL REPORT TECHNIQUE: Thin section axial images were obtained from the lung apices to the upper abdomen by computed tomography. Reformatted images were obtained and reviewed. This study was performed with techniques to keep radiation doses al low as reasonably achievable (ALARA). Individualized dose reduction techniques using automated exposure control or adjustment of mA and/or kV according to the patient's size were employed. CLINICAL HISTORY: smoker, 1 ppd x 25 years COMPARISON: None FINDINGS: CHEST CT LOW DOSE CTDI vol (mGy): 2.90 DLP (mGy-cm): 122.72 There is no axillary adenopathy. There are small borderline sized mediastinal nodes. The heart is normal in size. There is no pericardial or pleural effusion. There is mild emphysema and mild pulmonary scarring. Lung window images demonstrate a 4 mm pleural-based nodule in the right upper lobe on series 3 image 32. There is also a noncalcified nodule in the inferior left lower lobe measuring 11 mm, on series 3 image 67.. Limited images of the upper abdomen demonstrate a probable right renal cyst. There is wall thickening of the gallbladder.. IMPRESSION: Bilateral pulmonary nodules as above. Lung-RADS category 4A-S. Recommend PET/CT and 3-month follow-up LDCT. Modifier S: Gallbladder wall thickening. Recommend right upper quadrant ultrasound and/or nuclear medicine hepatobiliary scan. Reviewed, Interpreted and Dictated by Jorge Omer III, MD Transcribed by Vonda Cuadra Authenticated and [facility]
== END 2024-08-04 23:59 | disposition home or self-care (01) ==
LOC: RAD 14:47
PROVIDERS: PCP Student in an Organized Health Care Education/Training Program; Visit Provider Student in an Organized Health Care Education/Training Program
DX: F17.210 Nicotine dependence, cigarettes, uncomplicated (principal)
CPT/HCPCS: 71271

== ENCOUNTER 2024-08-05 07:21 | Outpatient (CLI) | payer BC, SELFPAY ==
[2024-08-05] MEDS: SODIUM CHLORIDE 0.9% 10ML SYR (RAD ONLY) 10 ML IV ×2 (09:33→09:34)
[2024-08-05] MEDS: ISOTOPE MYOVIEW (PER STUDY) 1 DOSE IV (09:34)
== END 2024-08-05 23:59 | disposition home or self-care (01) ==
LOC: RAD 07:21
PROVIDERS: PCP Student in an Organized Health Care Education/Training Program; Visit Provider Physician Assistant
DX: I25.10 Atherosclerotic heart disease of native coronary artery without angina pectoris (principal); R00.0 Tachycardia, unspecified
CPT/HCPCS: 78452; 93017; 93018; A9502

== ENCOUNTER 2024-08-23 07:55 | Outpatient (CLI) | payer BC, SELFPAY ==
--- NOTE | 2024-08-23 08:02 | US_ITS ---
FINAL REPORT CLINICAL HISTORY: thickened GB wall of LDCT COMPARISON: Prior CT 08/04/2024 FINDINGS: Sonographic images of the right upper quadrant were obtained. The pancreas is unremarkable in appearance.The liver has an unremarkable appearance.The gallbladder appears normal without evidence of gallstones. There is mild gallbladder wall thickening, the gallbladder wall measuring 3 mm. There is no evidence of biliary ductal dilatation. The common duct measures 5 mm. There are hypoechoic foci in the right kidney, consistent with renal cysts, the largest of which measures up to 3.7 cm in size. IMPRESSION: Mild gallbladder wall thickening, a nonspecific finding. No evidence of gallstones or biliary ductal dilatation is seen. Several right renal cysts. Reviewed, Interpreted and Dictated by Jorge Omer III, MD Transcribed by Vero Resendez Authenticated and [facility]
== END 2024-08-23 23:59 | disposition home or self-care (01) ==
LOC: RAD 07:58
PROVIDERS: PCP Student in an Organized Health Care Education/Training Program; Visit Provider Student in an Organized Health Care Education/Training Program
DX: K82.8 Other specified diseases of gallbladder (principal)
CPT/HCPCS: 76705

== ENCOUNTER 2024-10-06 08:19 | Outpatient (CLI) | payer BC, SELFPAY ==
--- NOTE | 2024-10-06 08:20 | CT_ITS ---
FINAL REPORT TECHNIQUE: Axial CT of the abdomen and pelvis, without and with IV contrast. Coronal and sagittal reconstructions obtained and reviewed. This study was performed with techniques to keep radiation doses as low as reasonably achievable, (ALARA). Individualized dose reduction techniques using automated exposure control or adjustment of mA and/or kV according to the patient''s size were employed. CLINICAL HISTORY: multiple renal cysts on US, flank pain COMPARISON: Ultrasound 08/23/2024 FINDINGS: Abdomen: Lung bases are clear. Hypodense area within the subcapsular anterior right liver best seen on image 34 series 5 measures 21 mm. There is a small area noted in the left liver on image 27 near the fissure for the falciform ligament. These are favored to be areas of focal fatty infiltration. The remaining solid organs are unremarkable. The gallbladder is negative. Precontrast imaging shows no renal stone disease. Postcontrast imaging of the kidneys shows 2 simple nonenhancing cysts in the right kidney measuring 22 and 33 mm. No focal lesions seen in the left kidney. There are no obstructive changes. Mild retroperitoneal adenopathy is noted with the largest nodes measuring up to 10 mm in the left periaortic region favored to be benign reactive. Pelvis: The appendix is normal. There is wall thickening of the mid sigmoid colon suspicious for nonspecific colitis. The uterus and right ovary are normal. There is an 18 mm benign-appearing cyst in the left ovary. IMPRESSION: Right renal lesions compatible with benign cysts. Abnormal wall thickening mid sigmoid colon. Recommend follow-up colonoscopy. Nonspecific mild retroperitoneal adenopathy, likely benign reactive. Liver lesions favored to be focal fatty change. Recommend hepatic MRI to better confirm. Reviewed, Interpreted and Dictated by Joie Padilla MD Transcribed by Vonda Cuadra Authenticated and [facility]
[2024-10-06 08:54] LABS: Blood Urea Nitrogen 17 mg/dl (7-17); Estimated Glomerular Filt Rate 87 ml/min (>60); GFR (African American) 105 ML/MIN (>60)
[2024-10-06] MEDS: IOPAMIDOL-370 (76%);100ML BOTTLE 75 ML IV (09:28)
[2024-10-06] MEDS: SODIUM CHLORIDE 0.9% 10ML SYR (RAD ONLY) 10 ML IV (09:28)
== END 2024-10-06 23:59 | disposition home or self-care (01) ==
LOC: RAD 08:20
PROVIDERS: PCP Student in an Organized Health Care Education/Training Program; Visit Provider Student in an Organized Health Care Education/Training Program
DX: R93.429 Abnormal radiologic findings on diagnostic imaging of unspecified kidney (principal); Q61.02 Congenital multiple renal cysts; R10.9 Unspecified abdominal pain
CPT/HCPCS: 36415; 74178; 82565; 84520; Q9967

== ENCOUNTER 2024-10-18 07:46 | Outpatient (CLI) | payer BC, SELFPAY ==
--- NOTE | 2024-10-18 07:48 | NM_ITS ---
FINAL REPORT CLINICAL HISTORY: RUQ abd pain 9:00AM 8.66 MCI TC CHOLETEC 1.4 MCG CCK NO PAIN WITH CCK COMPARISON: None FINDINGS: The patient was injected with 8.66 mCi of technetium 99m Choletec and subsequently 1.4 mcg of CCK. Images of the abdomen were obtained for one hour. There is normal distribution of radiopharmaceutical throughout the liver. Sequential images demonstrate progressive accumulation of activity within the gallbladder. There is a calculated ejection fraction of 88%, within normal limits. IMPRESSION: Normal ejection fraction of 88%. Reviewed, Interpreted and Dictated by Immanuel Toro MD Transcribed by Vonda Cuadra Authenticated and [facility]
--- NOTE | 2024-10-18 07:48 | US_ITS ---
FINAL REPORT CLINICAL HISTORY: Right upper quadrant abdominal pain COMPARISON: 08/23/2024 FINDINGS: Sonographic images of the right upper quadrant were obtained. The pancreas is unremarkable.The liver has an unremarkable appearance.The gallbladder appears normal without evidence of gallstones.There is no evidence of biliary ductal dilatation.The common duct measures 3 mm. There is a simple cyst in the superior pole of the right kidney measuring 4.4 x 3.2 cm, slightly larger than previous exam. IMPRESSION: Enlarging simple cyst superior pole right kidney. Reviewed, Interpreted and Dictated by Immanuel Toro MD Transcribed by Stacey Kaiser Authenticated and [facility]
[2024-10-18] MEDS: SINCALIDE 1.4 MCG in 0.9 % SODIUM CHLORIDE 50 ML 100 MCG IV (10:45)
[2024-10-18] MEDS: ISOTOPE CHOLETECH;1 DOSE (UP TO 15 MCI) IV (10:45)
[2024-10-18] MEDS: SODIUM CHLORIDE 0.9% 10ML SYR (RAD ONLY) 10 ML IV (10:45)
== END 2024-10-18 23:59 | disposition home or self-care (01) ==
LOC: RAD 07:48
PROVIDERS: PCP Nurse Practitioner Family; Visit Provider Nurse Practitioner Family
DX: R10.11 Right upper quadrant pain (principal)
CPT/HCPCS: 76705; 78227; A9537; J2805

== ENCOUNTER 2025-04-20 13:02 | Outpatient (POV) | payer BC, SELFPAY ==
--- OUTSIDE RECORDS SUMMARY | 2025-04-20 13:05 | XMS_ITS | Encounter Summary ---
Author Organization [email or web address] ([place], [place], [place]) Address [address] [place] [address] Care Team Providers Care Supervisor Loading Name Role Phone Unavailable Primary Care Provider Unavailabl e Encounter Details Date Type Department Care Team (Late st Contact Info) Description 07/02/2019 Transcribed Document [facility] [place] [facility] [place] [address] ProviderAlly MD [facility] [place] [address] Social History Tobacco Use Types Packs/Day Years Used Date Smoking Tobacco: Never Assessed Comments Unknown Sex and Gender Information Value Date Recorded Sex Assigned at Female 03/19/2022 8:36 PM CDT Legal Sex Female 8:36 PM CDT Gender Identity Female 03/19/2022 8:36 PM CDT Sexual Orientation Not on file documented as of this encounter Miscellaneous Notes * Cerner Conversion Note - Ally ProviderMD - 07/02/2019 3:18 PM CDT Final Discharge Planning Entered On: 07/02/2019 15:18 EDT Performed On: 07/02/2019 15:18 EDT by LEANDRO CASTILLO Care Management-Semiconductor Wafers Etch Operator Final Discharge Planning Discharge Arrangements : Patient Post-Acute Information Patient Name: MARY BLANDON Gender: Female : [birth year] Age: 48 Years No Post-Acute Placement(s) Listed No Post-Acute Service(s) Listed No [place] Referral(s) Listed Patient Offered Choice/Affiliations Explained : Yes Designation of Choice Signed : Yes Discharge To Care Management : Home/Residential/Care Home or Self Care -01 LEANDRO CASTILLO Care Management-Semicon[employer] Wafers Etch Operator - 07/02/2019 15:18 EDT documented in this encounter Plan of Treatment Not on file documented as of this encounter Visit Diagnoses Not on filedocumented in this encounter
--- OUTSIDE RECORDS SUMMARY | 2025-04-20 13:05 | XMS_ITS | Encounter Summary ---
Author Organization [employer] ([place], [place], [place]) Address [address] [place] [address] Care Team Providers Care Case Coordinator Name Role Phone Unavailable Primary Care Provider Unavailabl e Encounter Details Date Type Department Care Team (Late st Contact Info) Description 07/02/[address] [facility] [place] [facility] [place] [address] ProviderAlly MD [address] [place] [id number] Social History Tobacco Use Types Packs/Day [...] Conversion Note - Ally ProviderMD - 07/02/2019 1:28 PM CDT Evaluation, Occupational Therapy Entered On: 07/02/2019 15:22 EDT Performed On: 07/02/2019 15:01 EDT by HAJA HENSON OTR/Endy General Information, OT Visit Type, OT : Initial evaluation Patient Orders : Order Date Order Ordering 07/02/2019 08:43 Occupational Therapy Evaluation and Treatme Ordered By: PADMINI VALLE MD-ORT 07/02/2019 13:28 OT Evaluation and Treatment Ordered By: PADMINI VALLE MD-ORSandra Active Diagnoses : No Qualifying Diagnoses Onset of Problem, OT : 07/02/2019 EDT Admission Date : 07/02/2019 08:52 Assisted by, OT : Physical Therapist, Other: PT student Personal Devices : Personal Devices No Devices Recorded Assistive Devices : Assistive Devices No Devices Recorded Precautions in Place : Fall prevention measures General Information Comment, OT : L4-5 discectomy w/Dr. Valle; limited bending, lifting, twisting. HAJA HENSON OTR/Endy - 07/02/2019 15:01 EDT General Status Patient Received Status : Long sitting in bed, Other: spouse present; IV; SCDS Treatment Start Time : 07/02/2019 14:40 EDT Patient Left Status : Up in chair, Chair alarm activated, Family/Visitors at bedside, All needs met and within reach, Other: SCDS RN/PCT Informed Comment : nursing ok'ed eval; ID and verified. Treatment End Time : 07/02/2019 15:01 EDT Treatment Time : 21 Minute(s) Actual Treatment Time : 21 Minute(s) HAJA HENSON OTR/Endy - 07/02/2019 15:01 EDT History and Environment, OT Living Situation, Therapy : Home Patient Lives With : Spouse Persons Assisting Patient at Home : Spouse Persons Providing Information : Patient, Spouse Home Equipment, Therapy : Cane Cane : Cane, single point Home Setup : One story Stairs : Yes Stair Location(s) : Outside Outside Stairs, Number of Steps : 1 HAJA HENSON OTR/Endy - 07/02/2019 15:01 EDT Prior LOF Bathing, OT : Independent Prior LOF Bed Mobility : Independent Prior LOF Upper Body Dressing, OT : Independent Prior LOF Lower Body Dressing, OT : Independent Prior LOF Toileting : Independent Prior LOF Transfer : Independent Prior LOF Grooming, OT : Independent Prior LOF for IADLs, OT : Independent HAJA HENSON OTR/Endy - 07/02/2019 15:01 EDT Upper Extremity Upper Extremity Dominance : Right Right UE Active ROM : WFL Right UE Strength : WFL Left UE Active ROM : WFL Left UE Strength : WFL Right Hand AROM Comment : WFL Left Hand AROM Comment : WFL Upper Extremity Strength Impaired : No Right UE Strength : WFL Left UE Strength : WFL HAJA HENSON OTR/Endy - 07/02/2019 15:01 EDT Self Care/Home Management, OT Self Feeding Assist Level, OT : Independent, complete Grooming Comment, OT : IND sitting; supervision standing Bathing Assist Level, OT : Supervision or set-up Bathing Comment, OT : seated Upper Body Dressing Assist Level, OT : Independent, complete Lower Body Dressing Assist Level, OT : Supervision or set-up Toileting Assist Level : Supervision or set-up Toileting Device : [id number] commode Toilet Transfer Assist Level : Supervision or set-up Toilet Transfer Device : Belt, gait, Walker, rolling, [id number] commode Self Care/Home Management Comment, OT : Pt received home safety/car transfer for review, including post-op precautions for low back. Pt VU. HAJA HENSON OTR/Endy - 07/02/2019 15:01 EDT Functional Mobility Mobility Grid Supine to Sit : Supervision/set-up (Comment: + instructional cues for sequencing/log roll technique [HAJA HENSON OTR/Endy 07/02/2019 15:01 EDT] ) Sit to Stand : Supervision/set-up Stand to Sit : Supervision/set-up HAJA HENSON OTR/Endy 07/02/2019 15:01 EDT Functional MobilityComment : Pt educated on BLT precautions -- limited Bending, Lifting, and Twisting -- and how they relate to functional tasks such as dressing, bed mobility, etc. Pt demonstrated log roll to get to EOB with good technique and cues. Pt demonstrated functional sit <> stand transfers with supervision and good hand placement/safety awareness. Pt demonstrated functional mobility with RW, gait belt, no LOB, no observed fatigue/SOA, no reported > in pain, no rest breaks, no reported dizziness/lightheadedness, and cues for technique/posture. See PT eval for further details regarding mobility. HAJA HENSON OTR/L 07/02/2019 15:01 EDT Activity Tolerance, OT Activity Comment : Good tolerance despite reported pain. HAJA HENSON OTR/Endy 07/02/2019 15:01 EDT Neurological/Sensory Overall Sensory Response : Intact Response to Pain : Intact Light Touch Response : Intact HAJA HENSON OTR/Endy 07/02/2019 15:01 EDT Cognition Assessment, OT Orientation : Oriented x 4 Safety/Judgment Assessment, OT : Intact Follows Basic Command Assessment, OT : Intact Attention Assessment : Present HAJA HENSON OTR/Endy 07/02/2019 15:01 EDT Education OT Occupational Therapy Education Grid Activity of Daily Living Training : Verbalizes understanding, Returns demonstration Functional Mobility Training : Verbalizes understanding, Returns demonstration Home Safety : Verbalizes understanding Precaution/Contraindication : Verbalizes understanding, Returns demonstration (Comment: BLT precautions [HAJA HENSON OTR/Endy - 07/02/2019 15:01 EDT] ) Role of Occupational Therapy : Verbalizes understanding HAJA HENSON OTR/L - 07/02/2019 15:01 EDT Teaching/Learning Assessment Barriers To Learning : None evident Individuals Taught : Patient, Spouse Readiness to Learn : Cooperative Readiness to Learn : Explanation Learning Style Preferences Patient : Demonstration, Printed materials, Verbal explanation Learning Style Preferences Family : Demonstration, Printed materials, Verbal explanation HAJA HENSON OTR/Endy - 07/02/2019 15:01 EDT Indication Assessment, OT Occupational Therapy Indicated : No Occupational Therapy Not Indicated : No skilled services indicated HAJA HENSON OTR/Endy - 07/02/2019 15:01 EDT Plan of Care, OT OT Tx Plan/Goals Established w Patient : No Reason OT Treatment/Plan Not Established : Pt IND to Supervision with self-care and functional transfers during eval. Pt scheduled to DC home with spouse on this date. Applicable acute care OT education provided during initial eval. Plan of Care Comment, OT : eval + 1x tx. HAJA HENSON OTR/Endy - 07/02/2019 15:01 EDT Treatment Note Subjective Comment : Pt ok'ed tx. Patient's Response to Treatment : Good tolerance despite reported pain. Additional Objective Information : EVAL = 13 minutes SELF-CARE = 8 minutes Assessment : Pt IND to Supervision with self-care and functional transfers during eval. Pt scheduled to DC home with spouse on this date. Applicable acute care OT education provided during initial eval. Plan for Treatment : eval + 1x tx. HAJA HENSON OTR/Endy - 07/02/2019 15:01 EDT Pain Assessment Pain Scaled Used : 0-10 Pain scale Pain Score Pre-Intervention : 9 Pain Score Post-Intervention. : 9 Pain Comment : Pt reported pain in low back; RN notified. HAJA HENSON OTR/Endy - 07/02/2019 15:01 EDT Image 1 - Images currently included in the form version of this document have not been included in the text rendition version of the form. Anticipated Discharge Needs, OT/PT Anticipated Discharge to : Home, with family care Anticipated Home Equipment : Walker Walker : Walker, front wheel Walker Comment : RW ordered and being delievered to hospital for pt return to home. HAJA HENSON OTR/L - 07/02/2019 15:[address] [facility] OT Charges OT Selfcare/Hm Mgmt Ea 15 Min : 1 OT Eval Low Complexity : 1 HAJA HENSON OTR/L - 07/02/2019 15:01 EDT documented in this encounter Plan of Treatment Not on file documented as of this encounter Visit Diagnoses Not on filedocumented in this encounter
--- OUTSIDE RECORDS SUMMARY | 2025-04-20 13:05 | XMS_ITS | Encounter Summary ---
Author Organization [employer] ([place], [place], [place], [place]) Address [address] [place] [address] Care Team Providers Care Grievance Manager Name Role Phone Unavailable Primary Care Provider Unavailabl e Encounter Details Date Type Department Care Team (Late st Contact Info) Description 07/02/2019 Transcribed Document [facility] [place] [facility] [place] [address] ProviderAlly MD [facility] [place] [address] Social History Tobacco Use Types [...] Conversion Note - Ally ProviderMD - 07/02/2019 11:51 AM CDT [facility] PACU Summary Primary Physician: PADMINI VALLE MD-ORT Finalized Date/Time: 07/02/19 13:29:37 Pt. Name: MARY GRAMAJO /Sex: 1970 Female Med Rec #: [id number] Physician: PADMINI VALLE MD-ORT Financial #: [id number] Pt. Type: O Room/Bed: Admit/Disch: 07/02/19 08:52:00 - Institution: [facility] PACU Case Times Entry 1 In PACU I 07/02/19 12:26:00 Ready for PACU 07/02/19 13:30:00 Discharge Discharge from PACU 07/03/19 13:30:00 I Last Modified By: Peg Rodriguez RN 07/02/19 13:29:35 [facility] PACU Case Times Audit 07/02/19 13:29:35 Cotton Cleaner: ERICK Modifier: CARRIEC 1 <*> Discharge from PACU I 07/03/19 13:29:00 07/02/19 13:29:24 Cotton Cleaner: CARRIMARLENA Modifier: CARRIEC <+> 1 Ready for PACU Discharge <+> 1 Discharge from PACU I Finalized By: Peg Rodriguez RN Document Signatures Signed By: Peg Rodriguez RN 07/02/19 13:29 Electronically signed by Rogelio Machuca Conversion Microbiological Lab Technician Cerner at 01/07/2023 8:13 PM CDT documented in this encounter Plan of Treatment Not on file documented as of this encounter Visit Diagnoses Not on filedocumented in this encounter
--- OUTSIDE RECORDS SUMMARY | 2025-04-20 13:05 | XMS_ITS | Encounter Summary ---
Author Organization [employer] ([place], [place], [place], [place]) Address [address] [place] [address] Care Team Providers Care Food Safety Specialist Name Role Phone Unavailable Primary Care Provider Unavailabl e Encounter Details Date Type Department Care Team (Late st Contact Info) Description 07/02/2019 Transcribed Document [facility] [place] Family Medicine [facility] [place] [address] ProviderAlly MD [facility] [place] [address] Social History Tobacco Use Types Packs/Day Years Used Date Smoking Tobacco: Never Assessed Comments Unknown Sex and Gender Information Value Date Recorded Sex Assigned at Female 03/19/2022 8:36 PM CDT Legal Sex Female 8:36 PM CDT Gender Identity Female 03/19/2022 8:36 PM CDT Sexual Orientation Not on file documented as of this encounter Miscellaneous Notes * Cerner Conversion Note - Historical ProviderMD - 07/02/2019 1:43 PM CDT Pre Procedure Adult Entered On: 07/02/2019 13:50 EDT Performed On: 07/02/2019 13:43 EDT by Carmen Meyer RN Height and Weight, Clinical Dosing Height Source : Stated Height Entry Format : [place] Height, Feet : 5 ft(Converted to: 152 cm, 60 Inch) Height, Inches : 7 Inch(Converted to: 0 ft 7 Inch, 17.78 cm) Clinical Height : 170.18 cm Weight Source : Standing scale Weight Entry Format : [place] Clinical Dosing Weight : 61.82 kg Weight, Pounds : 136 lb Body Surface Area (BSA) : 1.72 m2 Body Mass Index : 21.3 kg/m2 [place] Body Weight : 61 kg Carmen Meyer RN - 07/02/2019 13:43 EDT Health Histories Smoking Status : 10 or more cigarettes (1/2 pack or more)/day in last 30 days Smokeless Tobacco Status : Never Desires Tobacco Cessation Medication : Yes Carmen Meyer RN - 07/02/2019 13:43 EDT Social History (As Of: 07/02/2019 13:50:13 EDT) Infectious Disease History Infectious Disease History : Chicken pox/Shingles Active Surveillance Screen Assessment : Patient does not meet any of above criteria Active Surveillance Screen Negative : Yes Fever/Chills Last 48 Hours : No Travel To Regions with Travel Advisories : No Travel Outside [place] Within Last 30 Days : No Contact With Traveler to Advisory Region : No Tuberculosis Symptoms : None Carmen Meyer RN - 07/02/2019 13:43 EDT Anesthesia/Transfusion History Family History of Anesthesia Reaction : No prior transfusion(s) Blood Transfusion Acceptable to Patient : Yes Transfusion History : No prior anesthesia Family History of Anesthesia Reaction : None Carmen Meyer RN - 07/02/2019 13:43 EDT Functional Assessment Living Situation : Home Patient Lives With : Spouse Persons Assisting Patient at Home : Spouse Current Daily Living Assistance : None Sensory Deficits : None Mobility Assistance Prior to Admission : Independent ALBERTO Hx Falls Immediate/Within 3 Months : No Current Home Treatments : None Home Equipment : None Carmen Meyer RN - 07/02/2019 13:43 EDT Psychosocial History Do You Have a History of the Following? : Patient denies history Currently in Unsafe Situation : No Tried to Harm Yourself in the Past? : No Thoughts of Harming/Killing Yourself : No Carmen Meyer RN - 07/02/2019 13:43 EDT Advance Directive Patient has Advance Directive *Q : No, patient refuses Advance Directive information Carmen Meyer RN - 07/02/2019 13:43 EDT Spiritual/Cultural Needs Significant Loss/Crisis in Past 3 Years : No Any Spiritual/Cultural Needs or Requests : Yes Carmen Meyer RN - 07/02/2019 13:43 EDT Teaching/Learning Assessment Barriers To Learning : None evident Individuals Taught : Patient, Spouse Readiness to Learn : Cooperative Baseline Knowledge of Topic : Limited Readiness to Learn : Explanation Learning Style Preferences Patient : Verbal explanation Carmen Meyer RN - 07/02/2019 13:43 EDT Education Topics, Periop Preadmission Perioperative Education Grid Arrival Time/Place : Verbalizes understanding, Returns demonstration CAUTI : Verbalizes understanding, Returns demonstration Central Lines : Verbalizes understanding, Returns demonstration CHG Preoperative Bathing/Cloths : Verbalizes understanding, Returns demonstration Falls : Verbalizes understanding, Returns demonstration Incentive Spirometry : Verbalizes understanding, Returns demonstration Infection Control : Verbalizes understanding, Returns demonstration IV's : Verbalizes understanding, Returns demonstration NPO Status/Directions : Verbalizes understanding, Returns demonstration Pain Management : Verbalizes understanding, Returns demonstration Postoperative Care Preparations : Verbalizes understanding, Returns demonstration Preprocedure Preparations : Verbalizes understanding, Returns demonstration Preprocedure Tests/Labs : Verbalizes understanding, Returns demonstration Remove Body Piercings : Verbalizes understanding, Returns demonstration Responsible Adult : Verbalizes understanding, Returns demonstration SNE's : Verbalizes understanding, Returns demonstration Take/Hold Medications Pre-Procedure : Verbalizes understanding, Returns demonstration Other : Verbalizes understanding, Returns demonstration Carmen Meyer RN - 07/02/2019 13:43 EDT General Info Arrived From : Home Mode of Arrival on Unit : Ambulatory Legal Guardian : Spouse Want Family/Rep/Phys Notified of Admit : No Emergency Contact #1 : Brennan Emergency Contact #1 Phone Number : [phone] Emergency Contact #1 Relationship : Emergency Contact #2 : . Emergency Contact #2 Phone Number : . Emergency Contact #2 Relationship : . Information Obtained From : Patient Primary Language : Lebanese Preferred Communication Mode : Verbal Communication Barrier : None Objects to Sharing Info w Family : No Carmen Meyer RN - 07/02/2019 13:43 EDT Vital Measurements Temperature Mode : Fahrenheit Temperature, Fahrenheit : 97.6 Deg F Clinical Temperature, C : 36.4 Deg C Heart Rate, Apical : 66 bpm Respiratory Rate : 16 Breaths/Min Blood Pressure Location : Arm, right upper Blood Pressure Position : Supine Systolic Blood Pressure : 111 mmHg Diastolic Blood Pressure : 86 mmHg Oxygen Saturation : 98 % Oxygen Therapy Mode : Nasal cannula Oxygen Flow Rate : 2 Liter/Min Carmen Meyer RN - 07/02/2019 13:43 EDT Sleep Apnea Risk Assmt Hx of Obstructive Sleep Apnea Diagnosis : No Snore Loudly : No Tired, Fatigued, or Sleepy During Day : No Observed Stopping Breathing During Sleep : No Have/Are Being Treated for Hypertension : No BMI Greater Than 35 kg/m2 : No Age over 50 Years Old : Yes Neck Circumference Greater Than 40 cm : No Gender Male : No STOP-BANG Sleep Apnea Risk Level Score : 1 Carmen Meyer RN - 07/02/2019 13:43 EDT [place] Scale Miguel Ángel Sensory Perception : Slightly limited Miguel [place]ngel Moisture : Rarely moist Miguel [place]ngel Activity : Walks frequently Miguel Ángel Mobility : Slightly limited Miguel Ángel Nutrition : Adequate Miguel Ángel Friction and Shear : No apparent problem Miguel Ángel Score : 20 Carmen Meyer RN - 07/02/2019 13:43 EDT Oxygen Therapy Oxygen Therapy Mode : Nasal cannula Oxygen Flow Rate : 2 Liter/Min Carmen Meyer RN - 07/02/2019 13:43 EDT Pain Assessment Pain Assessment : Initial assessment Pain Scale Used : 0-10 Scale Location : Back, lower Carmen Meyer RN - 07/02/2019 13:43 EDT Fall Risk Scales ABCs Fall Injury Risk Identification : Bones, Surgery ABC Fall Injury Risk : Moderate to high injury risk Injury Moderate to High Risk Interventions : Bed alarm on, Chair alarm on, Fall contract/letter per facility policy, High Risk for Fall Injury sign in place per policy, Patient room close to nurses station, Personal alarm on, Specialty low bed, Supervise toileting as indicated, Transport methods appropriate to patient, Wrist band (fall risk) on per policy, Fall Injury Intervention Refused ALBERTO Hx Falls Immediate/Within 3 Months : No Alberto Secondary Diagnosis : Yes ALBERTO Use of Ambulatory Aid : Bed rest/Nurse assist ALBERTO IV Therapy or IV Access : Yes Alberto Gait/Transferring : Weak Alberto Mental Status : Oriented to own ability Alberto Fall Risk Score : 45 ALBERTO Fall Scale Risk Level : 46 or > High Risk [place] Fall Interventions : Adequate lighting, Bed in low position, Call device within reach, Fall prevention handout/education per facility policy, Frequent orientation to call device, Frequent orientation to surroundings, Hourly comfort/safety rounds, Non-slip footwear, Personal items within reach, Reinforced to call for assistance before getting out of bed, Room free of clutter/spills, Upper side-rails up, Wheels locked, Wires/Cords secured Fall Moderate to High Risk Interventions : Bed alarm on, Chair alarm on, Fall contract/letter per facility policy, High Risk for Fall sign in place per policy, Patient room close to nurses station, Supervise toileting as indicated, Personal alarm on, Transport methods appropriate to patient, Toileting schedule, Visual cues in place, Wrist band (fall risk) on Carmen Meyer RN - 07/02/2019 13:43 EDT Fall Risk Education Grid Alarms : Verbalizes understanding, Returns demonstration Assistive Equipment Use : Verbalizes understanding, Returns demonstration Bed Height/Stabilization : Verbalizes understanding, Returns demonstration Call light use : Verbalizes understanding, Returns demonstration Door Open : Verbalizes understanding, Returns demonstration Environmental Management : Verbalizes understanding, Returns demonstration Eyeglasses Use : Verbalizes understanding, Returns demonstration Fall Community Resources : Verbalizes understanding, Returns demonstration Fall Contract/Letter : Verbalizes understanding, Returns demonstration Fall Prevention in the Home : Verbalizes understanding, Returns demonstration Fall Prevention Protocol : Verbalizes understanding, Returns demonstration Hearing Aid Use : Verbalizes understanding, Returns demonstration Home Risk Assessment : Verbalizes understanding, Returns demonstration Need Constant Observation : Verbalizes understanding, Returns demonstration Night Light Use : Verbalizes understanding, Returns demonstration Nonskid Footwear Use : Verbalizes understanding, Returns demonstration Notification of Staff When Leaving : Verbalizes understanding, Returns demonstration Orthostatic Hypotension Precautions : Verbalizes understanding, Returns demonstration Personal Article Availability : Verbalizes understanding, Returns demonstration Prevention Responsibility Family : Verbalizes understanding, Returns demonstration Prevention Responsibility Patient : Verbalizes understanding, Returns demonstration Risk Alert Methods : Verbalizes understanding, Returns demonstration Risk Factors : Verbalizes understanding, Returns demonstration Safety Aids : Verbalizes understanding, Returns demonstration Siderails use/risks : Verbalizes understanding, Returns demonstration Special Assistive Devices : Verbalizes understanding, Returns demonstration Staff Responsiveness : Verbalizes understanding, Returns demonstration Symptom Identification & Action Plan *Q : Verbalizes understanding, Returns demonstration Symptom Reporting : Verbalizes understanding, Returns demonstration Toileting Schedule : Verbalizes understanding, Returns demonstration Transfer/Mobility Techniques : Verbalizes understanding, Returns demonstration Urinal/Bedpan Availability : Verbalizes understanding, Returns demonstration Wait for Assistance : Verbalizes understanding, Returns demonstration Wheelchair Safety : Verbalizes understanding, Returns demonstration Carmen Meyer RN - 07/02/2019 13:43 EDT Barriers to Learning : None evident Individuals Taught : Patient, Spouse Readiness to Learn : Cooperative Baseline Knowledge of Topic : Limited Teaching Method : Explanation Learning Style Preferences Patient : Verbal explanation Fall Risk Scale Calc Temp : 2 Carmen Meyer RN - 07/02/2019 13:43 EDT Education Topics, Day of Surgery DayofSurgery Education Grid Anesthesia/Sedation : Verbalizes understanding, Returns demonstration CAUTI : Verbalizes understanding, Returns demonstration Central Lines : Verbalizes understanding, Returns demonstration CHG Preoperative Bathing/Cloths : Verbalizes understanding, Returns demonstration Fall Risks : Verbalizes understanding, Returns demonstration Family Instructions : Verbalizes understanding, Returns demonstration Incentive Spirometry : Verbalizes understanding, Returns demonstration Infection Control : Verbalizes understanding, Returns demonstration Infection Risks : Verbalizes understanding, Returns demonstration IV's : Verbalizes understanding, Returns demonstration Medication Instructions : Verbalizes understanding, Returns demonstration Pain Management : Verbalizes understanding, Returns demonstration Plan of Care : Verbalizes understanding, Returns demonstration Respiratory Care : Verbalizes understanding, Returns demonstration Responsible Adult : Verbalizes understanding, Returns demonstration SNE's : Verbalizes understanding, Returns demonstration Tubes/Drains : Verbalizes understanding, Returns demonstration Other : Verbalizes understanding, Returns demonstration Carmen Meyer RN - 07/02/2019 13:43 EDT Valuables and Belongings Valuables and Belongings : Clothing Clothing : Common streetwear Clothing Disposition : With family Carmen Meyer RN - 07/02/2019 13:43 EDT Pain Scale Intensity : 9 Carmen Meyer RN - 07/02/2019 13:43 EDT Image 4 - Images currently included in the form version of this document have not been included in the text rendition version of the form. [place] Coma Oscar Best Motor Response : Obey commands [place] Best Verbal Response : Oriented [place] Eye Opening Response : Spontaneous Oscar Coma Score : 15 Carmen Meyer RN - 07/02/2019 13:43 EDT Electronically signed by Tres Machuca Conversion Geoscience Laboratory Technician Cerner at 01/07/2023 8:22 PM CDT documented in this encounter Plan of Treatment Not on file documented as of this encounter Visit Diagnoses Not on filedocumented in this encounter
--- OUTSIDE RECORDS SUMMARY | 2025-04-20 13:05 | XMS_ITS | Encounter Summary ---
Author Organization [employer] ([place], [place], [place], [place]) Address [address] [place] [address] Care Team Providers Care Fire Truck Driver Name Role Phone Unavailable Primary Care Provider Unavailabl e Encounter Details Date Type Department Care Team (Late st Contact Info) Description 07/02/2019 Transcribed Document [facility] [place] Family Medicine [facility] [place] [address] ProviderAlly MD [place] [address] Social History Tobacco Use Types [...] Conversion Note - Historical ProviderMD - 07/02/2019 9:38 AM CDT Pre Procedure Adult Entered On: 07/02/2019 9:43 EDT Performed On: 07/02/2019 9:38 EDT by LAUREEN HOGAN RN Height and Weight, Clinical Dosing Height Source : Stated Height Entry Format : [place] Height, Feet : 5 ft(Converted to: 152 cm, 60 Inch) Height, Inches : 7 Inch(Converted to: 0 ft 7 Inch, 17.78 cm) Clinical Height : 170.18 cm Weight Source : Standing scale Weight Entry Format : [place] Clinical Dosing Weight : 61.82 kg Weight, Pounds : 136 lb Body Surface Area (BSA) : 1.72 m2 Body Mass Index : 21.3 kg/m2 [place] Body Weight : 61 kg LAUREEN HOGAN RN - 07/02/2019 9:38 EDT Health Histories Smoking Status : 10 or more cigarettes (1/2 pack or more)/day in last 30 days Smokeless Tobacco Status : Never Desires Tobacco Cessation Medication : No Reason for No Tobacco Cessation Medication : Refuses FDA approved medications LAUREEN HOGAN RN - 07/02/2019 9:38 EDT Social History (As Of: 07/02/2019 09:43:50 EDT) Infectious Disease History Infectious Disease History : Chicken pox/Shingles Fever/Chills Last 48 Hours : No Travel To Regions with Travel Advisories : No Travel Outside [place] Within Last 30 Days : No Contact With Traveler to Advisory Region : No Tuberculosis Symptoms : None LAUREEN HOGAN RN - 07/02/2019 9:38 EDT Anesthesia/Transfusion History Family History of Anesthesia Reaction : No prior transfusion(s) Transfusion History : No prior anesthesia Family History of Anesthesia Reaction : None LAUREEN HOGAN RN - 07/02/2019 9:38 EDT Functional Assessment Living Situation : Home Patient Lives With : Spouse Persons Assisting Patient at Home : Spouse Current Daily Living Assistance : None Sensory Deficits : None Mobility Assistance Prior to Admission : Independent ALBERTO Hx Falls Immediate/Within 3 Months : No Current Home Treatments : None Home Equipment : None LAUREEN HOGAN RN - 07/02/2019 9:38 EDT Psychosocial History Do You Have a History of the Following? : Patient denies history Currently in Unsafe Situation : No Tried to Harm Yourself in the Past? : No Thoughts of Harming/Killing Yourself : No LAUREEN HOGAN RN - 07/02/2019 9:38 EDT Advance Directive Patient has Advance Directive *Q : No, patient refuses Advance Directive information LAUREEN HOGAN RN - 07/02/2019 9:38 EDT Spiritual/Cultural Needs Any Spiritual/Cultural Needs or Requests : Yes LAUREEN HOGAN RN - 07/02/2019 9:38 EDT Teaching/Learning Assessment Barriers To Learning : None evident Individuals Taught : Patient Readiness to Learn : Cooperative Baseline Knowledge of Topic : Good Readiness to Learn : Explanation Learning Style Preferences Patient : Verbal explanation LAUREEN HOGAN RN - 07/02/2019 9:38 EDT General Info Arrived From : Home Mode of Arrival on Unit : Ambulatory Patient Arrival Date/Time : 07/02/2019 9:00 EDT Legal Guardian : Spouse Want Family/Rep/Phys Notified of Admit : No Emergency Contact #1 : Brennan Emergency Contact #1 Phone Number : [phone] Emergency Contact #1 Relationship : Emergency Contact #2 : . Emergency Contact #2 Phone Number : . Emergency Contact #2 Relationship : . Information Obtained From : Patient Primary Language : Kiswahili Preferred Communication Mode : Verbal Communication Barrier : None Objects to Sharing Info w Family : No LAUREEN HOGAN RN - 07/02/2019 9:38 EDT Vital Measurements Temperature Source : Temporal artery scanning Temperature Mode : Celsius Temperature, Celsius : 36.0 Deg C Clinical Temperature, F : 96.8 Deg F Pulse Method : Pulse Oximetry Peripheral Pulse Rate : 107 bpm (HI) Respiratory Rate : 18 Breaths/Min Blood Pressure Location : Arm, left upper Blood Pressure Source : Non-Invasive BP Device Systolic Blood Pressure : 143 mmHg (HI) Diastolic Blood Pressure : 78 mmHg Oxygen Saturation : 100 % Oxygen Therapy Mode : Room air LAUREEN HOGAN RN - 07/02/2019 9:38 EDT Sleep Apnea Risk Assmt Hx of [...] Sleep Apnea Risk Level Score : 1 LAUREEN HOGAN RN - 07/02/2019 9:38 EDT [place] Scale [place]ng[place] Sensory Perception : Slightly limited Miguel [place]ngel Moisture : Rarely moist Miguel Ángel Activity : Walks occasionally Miguel Ángel Mobility : Slightly limited Miguel Ángel Nutrition : Excellent Miguel Ángel Friction and Shear : No apparent problem Miguel Ángel Score : 20 LAUREEN HOGAN RN - 07/02/2019 9:38 EDT Oxygen Therapy Oxygen Therapy Mode : Room air LAUREEN HOGAN RN - 07/02/2019 9:38 EDT Pain Assessment Pain Assessment : Initial assessment Pain Scale Used : 0-10 Scale Location : Back, lower, Leg, left LAUREEN HOGAN RN - 07/02/2019 9:38 EDT Fall Risk Scales ABCs Fall Injury Risk Identification : None ALBERTO Hx Falls Immediate/Within 3 Months : No Alberto Secondary Diagnosis : No ALBERTO Use of Ambulatory Aid : None ALBERTO IV Therapy or IV Access : Yes Alberto Gait/Transferring : Normal, bedrest, immobile Alberto Mental Status : Oriented to own ability Alberto Fall Risk Score : 20 ALBERTO Fall Scale Risk Level : 0-24 Low Risk [place] Fall Interventions : Bed in low position, Call device within reach, Hourly comfort/safety rounds, Non-slip footwear, Personal items within reach, Upper side-rails up, Wheels locked LAUREEN HOGAN RN - 07/02/2019 9:38 EDT Fall Risk Education Grid Nonskid Footwear Use : Verbalizes understanding LAUREEN HOGAN RN - 07/02/2019 9:38 EDT Barriers to Learning : None evident Individuals Taught : Patient Readiness to Learn : Cooperative Teaching Method : Explanation Learning Style Preferences Patient : Verbal explanation Teaching Evaluation : Verbalizes understanding LAUREEN HOGAN RN - 07/02/2019 9:38 EDT Education Topics, Day of Surgery DayofSurgery Education Grid Anesthesia/Sedation : Verbalizes understanding IV's : Verbalizes understanding Medication Instructions : Verbalizes understanding Pain Management : Verbalizes understanding Plan of Care : Verbalizes understanding LAUREEN HOGAN RN - 07/02/2019 9:38 EDT Valuables and Belongings Valuables and Belongings : Clothing Clothing : Common streetwear Clothing Disposition : With family LAUREEN HOGAN RN - 07/02/2019 9:38 EDT Pain Scale Intensity : 8 LAUREEN HOGAN RN - 07/02/2019 9:38 EDT Image 4 - Images currently included in the form version of this document have not been included in the text rendition version of the form. documented in this encounter Plan of Treatment Not on file documented as of this encounter Visit Diagnoses Not on filedocumented in this encounter
--- OUTSIDE RECORDS SUMMARY | 2025-04-20 13:05 | XMS_ITS | Encounter Summary ---
Author Organization [employer] ([place], [place], [place], [place]) Address [address] [place] [address] Care Team Providers Care Fur Blower Name Role Phone Unavailable Primary Care Provider Unavailabl e Encounter Details Date Type Department Care Team (Late st Contact Info) Description 07/02/2019 Transcribed Document [facility] [place] Family Medicine [address] [place] [address] ProviderAlly MD [facility] [place] [address] Social History Tobacco Use Types [...] Conversion Note - Historical ProviderMD - 07/02/2019 9:48 AM CDT Event Note Entered On: 07/02/2019 9:47 EDT Performed On: 07/02/2019 9:48 EDT by LAUREEN HOGAN, RN Event Note Event Date/Time : 07/02/2019 9:48 EDT Description of Event : pt ready for surgery family at bedside LAUREEN HOGAN, RN - 07/02/2019 9:46 EDT documented in this encounter Plan of Treatment Not on file documented as of this encounter Visit Diagnoses Not on filedocumented in this encounter
--- OUTSIDE RECORDS SUMMARY | 2025-04-20 13:05 | XMS_ITS | Encounter Summary ---
Author Organization [employer] ([place], [place], [place], [place]) Address [address] [place] [address] Care Team Providers Care Cap Maker Name Role Phone Unavailable Primary Care Provider Unavailabl e Encounter Details Date Type Department Care Team (Late st Contact Info) Description 07/02/2019 Transcribed Document [facility] [place] Family Medicine [facility] [place] [address] ProviderAlly MD [address] [place] [address] Social History Tobacco Use Types Packs/Day Years Used Date Smoking Tobacco: Never Assessed Comments Unknown Sex and Gender Information Value Date Recorded Sex Assigned at Female 03/19/2022 8:36 PM CDT Legal Sex Female 8:36 PM CDT Gender Identity Female 03/19/2022 8:36 PM CDT Sexual Orientation Not on file documented as of this encounter Miscellaneous Notes * Cerner Conversion Note - Ally Iqbal MD - 07/02/2019 1:52 PM CDT Patient Education Materials Follows: What to expect after the Procedure: After the procedure, it is common to have: ?? Pain and swelling. ?? A small amount of blood or clear fluid coming from your incision for up to 7 days ?? It is normal to have a moderate amount of bleeding from the site of the drain that was pulled on the morning after surgery. You can hold pressure on the area for 3-5 minutes and cover with a bandage as needed. Diet: ?? Resume usual diet ?? No alcoholic beverages while taking pain medication ?? Drink 8-10 glasses of water a day to prevent constipation from pain medication ?? Increase fiber to help prevent constipation. Straining can cause increased pressure and pain in your incision area ?? Increase protein to promote healing Driving: ?? Do not drive until your health care provider approves. Ask your health care provider when it is safe to drive if you have an immobilizer on your knee. ?? Do not drive or operate heavy machinery while taking prescription pain medicine. ?? Do not drive for 24 hours if you received a sedative. Activity: ?? No strenuous activity ?? Avoid high-impact activities, including running, jumping rope, and jumping jacks. ?? Avoid sitting for a long time without moving. Get up and move around at least every few hours. ?? Keep legs elevated while seated and place surgery leg on 2-3 pillows, this will decrease swelling ?? Continue using walker until cleared by physical therapy Back Activity ?? Minimize bending, twisting, and lifting. Bathing: ?? May shower ?? Do not take baths, swim, or use a hot tub for one month after surgery. ?? You must be seated to shower until you are no longer using the walker Other: ?? Use ice therapy for 20-30 minutes at a time and leave off for 20-30 minutes at a time. Always keep a towel or cloth between the ice pack and your skin ?? Continue to use Incentive Spirometer 10 times an hour while awake for one month to help prevent pneumonia Contact a health care provider if: ?? You have more redness, swelling, or pain around your incision. ?? You have more fluid or blood coming from your incision. ?? Your incision or drain site feels warm to the touch. ?? You have pus or a bad smell coming from your incision. ?? You have a fever. ?? Your incision breaks open after your health care provider removes your sutures, skin glue, or adhesive tape. ?? Your prosthesis feels loose. ?? You have knee pain that does not go away. DVT: Blood Clot Blood clots are a common risk after an orthopedic surgery Symptoms: ?? Swelling of your leg or arm, especially if one side is much worse. ?? Warmth and redness of your leg or arm, especially if one side is much worse. ?? Pain in your arm or leg. If the clot is in your leg, symptoms may be more noticeable or worse when you stand or walk. ?? A feeling of pins and needles, if the clot is in the arm. The symptoms of a DVT that has traveled to the lungs (pulmonary embolism, PE) usually start suddenly and include: ?? Shortness of breath while active or at rest. ?? Coughing or coughing up blood or blood-tinged mucus. ?? Chest pain that is often worse with deep breaths. ?? Rapid or irregular heartbeat. ?? Feeling light-headed or dizzy. ?? Fainting. ?? Feeling anxious. ?? Sweating. There may also be pain and swelling in a leg if that is where the blood clot started. How is this prevented? ?? Exercise regularly. For at least 30 minutes every day, engage in: ? Activity that involves moving your arms and legs. ? Activity that encourages good blood flow through your body by increasing your heart rate. ?? Exercise your arms and legs every hour during long-distance travel (over 4 hours). Drink plenty of water and avoid drinking alcohol while traveling. ?? Avoid sitting or lying in bed for long periods of time without moving your legs. ?? Maintain a weight that is appropriate for your height. Ask your health care provider what weight is healthy for you. ?? If you are a woman who is over 35 years of age, avoid unnecessary use of medicines that contain estrogen. These include control pills. ?? Do not smoke, especially if you take estrogen medicines. If you need help quitting, ask your health care provider. ?? Wear compression stockings (if told by your health care provider) to help prevent blood clots from forming. High Fiber/High Protein Diet High fiber foods: To prevent constipation ?? Grains Whole-grain breads. Multigrain cereal. Oats and oatmeal. Brown rice. Barley. Bulgur wheat. Millet. Bran muffins. Popcorn. [place] wafer crackers. ?? Vegetables Sweet potatoes. Spinach. Kale. Artichokes. Cabbage. Broccoli. Green peas. Carrots. Squash. ?? Fruits Berries. Pears. Apples. Oranges. Avocados. Prunes and raisins. Dried figs. ?? Meats and Other Protein Sources [place], kidney, ball, and soy beans. Split peas. Lentils. Nuts and seeds. ?? Dairy Fiber-fortified yogurt. ?? Beverages Fiber-fortified soy milk. Fiber-fortified orange juice. ?? Other Fiber bars. High-protein foods: To promote healing High-protein foods contain 4 grams (4 g) or more of protein per serving. They include: ?? Beef, ground sirloin (cooked) - 3 oz have 24 g of protein. ?? Cheese (hard) - 1 oz has 7 g of protein. ?? Chicken breast, boneless and skinless (cooked) - 3 oz have 13.4 g of protein. ?? Cottage cheese - 1/2 cup has 13.4 g of protein. ?? Egg - 1 egg has 6 g of protein. ?? Fish, filet (cooked) - 1 oz has 6-7 g of protein. ?? Garbanzo beans (canned or cooked) - 1/2 cup has 6-7 g of protein. ?? Kidney beans (canned or cooked) - 1/2 cup has 6-7 g of protein. ?? Teague (cooked) - 3 oz has 24 g of protein. ?? Milk - 1 cup (8 oz) has 8 g of protein. ?? Nuts (peanuts, pistachios, almonds) - 1 oz has 6 g of protein. ?? Peanut butter - 1 oz has 7-8 g of protein. ?? Pork tenderloin (cooked) - 3 oz has 18.4 g of protein. ?? Pumpkin seeds - 1 oz has 8.5 g of protein. ?? Soybeans (roasted) - 1 oz has 8 g of protein. ?? Soybeans (cooked) - 1/2 cup has 11 g of protein. ?? Soy milk - 1 cup (8 oz) has 5-10 g of protein. ?? Soy or vegetable elis - 1 elis has 11 g of protein. ?? [place] seeds - 1 oz has 5.5 g of protein. ?? Tofu (firm) - 1/2 cup has 20 g of protein. ?? Tuna (canned in water) - 3 oz has 20 g of protein. ?? Yogurt - 6 oz has 8 g of protein. Fall Prevention ?? Use night lights. ?? Install grab bars by the toilet and in the tub and shower. Do not use towel bars as grab bars. ?? Use non-skid mats or decals on the floor of the tub or shower. ?? If you need to sit down while you are in the shower, use a plastic, non-slip stool. ?? Keep the floor dry. Immediately clean up any water that spills on the floor. ?? Remove soap buildup in the tub or shower on a regular basis. ?? Remove throw rugs and other tripping hazards from the floor. ?? Place frequently used items in [id number] places ?? Keep electrical cables out of the way. ?? Do not leave any items on the stairs. ?? Make sure that there are handrails on both sides of the stairs. Fix handrails that are broken or loose. Make sure that handrails are as long as the stairways. ?? Check any carpeting to make sure that it is firmly attached to the stairs. Fix any carpet that is loose or worn. ?? Avoid having throw rugs at the top or bottom of stairways, or secure the rugs with carpet tape to prevent them from moving. ?? Wear closed-toe shoes that fit well and support your feet. Wear shoes that have rubber soles or low heels. ?? Use mobility aids as needed, such as canes, walkers, scooters, and crutches. ?? Turn on lights if it is dark. Replace any light bulbs that burn out. ?? Set up furniture so that there are clear paths. Keep the furniture in the same spot. ?? Be aware of any and all pets. ?? Review your medicines with your healthcare provider. Some medicines can cause dizziness or changes in blood pressure, which increase your risk of falling. Hand Washing You should wash your hands whenever you think they are dirty. You should also wash your hands: ?? After: ? Working or playing outside. ? Touching an animal or its toys or leash. ? Handling livestock. ? Using the bathroom. ? Using household freelance operator or toxic chemicals. ? Touching or taking out the garbage. ? Touching anything dirty around your home. ? Handling soiled clothes or rags. ? Taking care of a sick child. This includes touching used tissues, toys, and clothes. ? Sneezing, coughing, or blowing your nose. ? Using public transportation. ? Shaking hands. ? Using a phone, including your mobile phone. ? Touching money. ?? Before and after: ? Preparing food. ? Feeding a baby or young child. ? Eating. ? Visiting or taking care of someone who is sick. ? Changing a diaper. ? Changing a bandage (dressing) or taking care of an injury or wound. ? Giving or taking medicine. If soap and clean water are not available, use an alcohol-based wipe, spray, or hand gel. Use a hand-sanitizing agent that contains at least 60% alcohol. If you are preparing food, hand sanitizers are not recommended as a substitute for hand washing. Walker Use To Walk With a Front-Wheeled Walker: 1. Slide your front-wheeled walker one step-length in front of you. Your toes should be farther forward than the back legs of your walker. 2. Hold on to the walker for support, and step your weaker (surgery) leg into the middle of the walker. 3. Step your stronger leg forward to land next to your weaker leg. 4. Repeat the process for each step. ?? Always keep both feet within the width of the walker's legs or wheels. ?? When using your walker, you should not feel like you need to lean forward or to the side to keep your hands on the handgrips. ?? Make sure you are following any weight-bearing instructions that your health care provider has given you. ?? Be careful not to let the walker get too far ahead of you as you walk. ?? If your walker does not glide well over carpet, consider cutting an X into two tennis balls and placing the balls over the back legs of your walker. How to use a walker on a curb or step To Use a Walker to Step Up: 1. Put all four legs of the walker on the curb or step. 2. Get your feet as close to the curb or step as you can. 3. Test the steadiness of the walker by pressing down on the handgrips. 4. If the walker is steady, press down on it with your hands as you step up with your stronger leg. 5. Step up with your weaker leg. To Use a Walker to Step Down: 1. Put all four legs of the walker on the surface that is lower than the curb or step. 2. Get your feet as close to the curb or step as you can. 3. Test the steadiness of the walker by pressing down on the handgrips. 4. If the walker is steady, press down on it with your hands as you step down with your weaker leg. 5. Step down with your stronger leg. documented in this encounter Plan of Treatment Not on file documented as of this encounter Visit Diagnoses Not on filedocumented in this encounter
--- OUTSIDE RECORDS SUMMARY | 2025-04-20 13:05 | XMS_ITS | Encounter Summary ---
Author Organization [employer] ([place], [place], [place], [place]) Address [address] [place] [address] Care Team Providers Care Sign Erector And Repairer Name Role Phone Unavailable Primary Care Provider Unavailabl e Encounter Details Date Type Department Care Team (Late st Contact Info) Description 07/02/2019 Transcribed Document [facility] [place] Family Medicine [address] [place] [address] ProviderAlly MD [facility] [place] [address] Social History Tobacco Use Types [...] Conversion Note - Historical ProviderMD - 07/02/2019 1:53 PM CDT Nursing Discharge Summary Entered On: 07/02/2019 13:53 EDT Performed On: 07/02/2019 13:53 EDT by Jodi Henning RN Discharge Documentation Patient Disposition, General : Discharge Discharge To : Home with ambulatory/outpatient follow-up Mode Of Departure, General Discharge : Private vehicle IV Discontinued : Yes Personal Belongings With Patient : Yes Prescriptions Given to Patient : Yes Discharge Instructions Reviewed With, Opportunity For Questions Given : Patient Number of Prescriptions Given : 1 Teaching Method : Explanation, Printed materials Teaching Evaluation : Verbalizes understanding Jodi Henning RN - 07/02/2019 13:53 EDT documented in this encounter Plan of Treatment Not on file documented as of this encounter Visit Diagnoses Not on filedocumented in this encounter
--- OUTSIDE RECORDS SUMMARY | 2025-04-20 13:05 | XMS_ITS | Encounter Summary ---
Author Organization [employer] ([place], [place], [place], [place]) Address [address] [place] [address] Care Team Providers Care Health Information Specialist Name Role Phone Unavailable Primary Care Provider Unavailabl e Encounter Details Date Type Department Care Team (Late st Contact Info) Description 07/02/2019 Transcribed Document [facility] [place] Family Medicine [address] [place] [address] [place] [address] Social History Tobacco Use Types [...] Conversion Note - Historical ProviderMD - 07/02/2019 1:28 PM CDT Education-(VTE) / (DVT) Entered On: 07/02/2019 16:17 EDT Performed On: 07/02/2019 13:28 EDT by Carmen Meyer RN Teaching/Learning Assessment Barriers To Learning : None evident Individuals Taught : Patient Readiness to Learn : Cooperative Baseline Knowledge of Topic : Limited Readiness to Learn : Explanation Learning Style Preferences Patient : Demonstration, Printed materials, Verbal explanation Learning Style Preferences Family : Demonstration, Printed materials, Verbal explanation Carmen Meyer, HA - 07/02/2019 16:16 EDT documented in this encounter Plan of Treatment Not on file documented as of this encounter Visit Diagnoses Not on filedocumented in this encounter
--- OUTSIDE RECORDS SUMMARY | 2025-04-20 13:05 | XMS_ITS | Encounter Summary ---
Author Organization [employer] ([place], [place], [place], [place]) Address [address] [place] [address] Care Team Providers Care Application Support Analyst Name Role Phone Unavailable Primary Care Provider Unavailabl e Encounter Details Date Type Department Care Team (Late st Contact Info) Description 07/02/2019 Transcribed Document [place] Family Medicine [facility] [address] ProviderAlly MD [facility] [place] [address] Social History Tobacco Use Types [...] Conversion Note - Ally ProviderMD - 07/02/2019 9:43 AM CDT Spiritual Care Assessment Entered On: 07/02/2019 11:12 EDT Performed On: 07/02/2019 11:05 EDT by ROMANA ANDERSON Chaplain-Non Cert General Information Initial Visit : Yes Referred by : Nurse Ministry Provided to : Patient, Family/Significant other ROMANA ANDERSON Chaplain-Non Cert - 07/02/2019 11:10 EDT Spiritual Assessment Supportive/Healthy Relationships : Yes Spiritual Assessment Comment/Summary Points : Mary is a 48 year-old patient who requests prayer prior to her surgery. Spirital Assessment Comment/Summary Report : SPIRITUAL ASSESSMENT COMMENT/SUMMARY No qualifying data available. ROMANA ANDERSON Chaplain-Non Cert - 07/02/2019 11:10 EDT Interventions Emotional Support : Emotional, Empathic/Engaged listening, Family/Significant other supported, Feelings expressed Spiritual and Sikhism : Prayer shared ROMANA ANDERSON Chaplain-Non Cert - 07/02/2019 11:10 EDT Electronically signed by [facility], [facility] Conversion Basketball Player Cerner at 01/07/2023 8:23 PM CDT documented in this encounter Plan of Treatment Not on file documented as of this encounter Visit Diagnoses Not on filedocumented in this encounter
--- OUTSIDE RECORDS SUMMARY | 2025-04-20 13:05 | XMS_ITS | Referral Summary ---
Author Organization [employer] ([place], [place], [place], [place]) Address [address] [place] [address] Care Team Providers Care Mold Shifter Name Role Phone Unavailable Primary Care Provider Unavailabl e Social History Tobacco Use Types Packs/Day Years Used Date Smoking Tobacco: Never Assessed Comments Unknown Sex and Gender Information Value Date Recorded Sex Assigned at Female 03/19/2022 8:36 PM CDT Legal Sex Female 8:36 PM CDT Gender Identity Female 03/19/2022 8:36 PM CDT Sexual Orientation Not on file Plan of Treatment Not on file
--- OUTSIDE RECORDS SUMMARY | 2025-04-20 13:05 | XMS_ITS | Encounter Summary ---
Author Organization [employer] ([place], [place], [place], [place]) Address [address] [place] [address] Care Team Providers Care Production Team Advisor Name Role Phone Unavailable Primary Care Provider Unavailabl e Encounter Details Date Type Department Care Team (Late st Contact Info) Description 07/02/2019 Transcribed Document [facility] [place] Family Medicine [facility] [place] [address] ProviderAlly MD [facility] [place] [address] Social History Tobacco Use Types [...] Ally ProviderMD - 07/02/2019 11:51 AM CDT STEPHANIE Main OR IntraOp Summary Primary Physician: PADMINI VALLE MD-ORT Finalized Date/Time: 07/02/19 14:30:29 Pt. Name: MARY GRAMAJO /Sex: 1970 Female Med Rec #: [id number] Physician: PDAMINI VALLE MD-ORT Financial #: [id number] Pt. Type: O Room/Bed: [facility]/ Admit/Disch: 07/02/19 08:52:00 - Institution: [facility] [place]Op Case Attendance Entry 1 Entry 2 Entry 3 Case Attendee PADMINI VALLE MD-ORT LONGSWORTH, GARY, RN CROW, HOLLY, OR TECH Role Performed Surgeon/Proceduralist, Thermal Molder, First Scrub, First First Time In 07/02/19 11:26:00 07/02/19 11:26:00 07/02/19 11:26:00 Time Out 07/02/19 12:07:00 07/02/19 12:23:00 07/02/19 12:23:00 Procedure Lumbar Laminectomy Lumbar Laminectomy Lumbar Laminectomy Discectomy 1 Level Discectomy 1 Level Discectomy 1 Level Other Attendee Superficial Wound Closed By: Last Modified By: ENOCH POLK RN LONGSWORTH, GARY, ENOCH VILLEGAS, HA 07/02/19 12:22:38 07/02/19 12:22:38 07/02/19 12:22:38 Entry 4 Entry 5 Entry 6 Case Attendee NEEMA CARSON, RETAIL SHIFT SUPERVISOR IRMA TRIPP PA Dawes, Blanca Flores, Senior Ui Ux Designer Role Performed RETAIL SHIFT SUPERVISOR/Nurse Cafeteria Attendant Physician circulation assistant Transportation Services Representative Time In 07/02/19 11:26:00 07/02/19 11:26:00 07/02/19 11:26:00 Time Out 07/02/19 12:23:00 07/02/19 12:23:00 07/02/19 12:23:00 Procedure Lumbar Laminectomy Lumbar Laminectomy Lumbar Laminectomy Discectomy 1 Level Discectomy 1 Level Discectomy 1 Level Other Attendee Superficial Wound Closed By: Last Modified By: ENOCH POLK, ENOCH VILLEGAS, ENOCH VILLEGAS, HA 07/02/19 12:22:38 07/02/19 12:22:38 07/02/19 12:22:38 Entry 7 Case Attendee OTHER, ATTENDEE #1 Role Performed Rod And Tube Straightener, Ancillary Time In 07/02/19 11:26:00 Time Out 07/02/19 12:23:00 Procedure Lumbar Laminectomy Discectomy 1 Level Other Attendee KEITH RIVERA Superficial Wound Closed By: Last Modified By: ENOCH POLK RN 07/02/19 12:22:38 [facility] IntraOp Case Attendance Audit 07/02/19 12:22:38 Song And Dance Performer: LONGGA Modifier: LONGGA 1 <*> Procedure Lumbar Laminectomy Discectomy 1 Level 2 <+> Time Out 2 <*> Procedure Lumbar Laminectomy Discectomy 1 Level 3 <+> Time Out 3 <*> Procedure Lumbar Laminectomy Discectomy 1 Level 4 <+> Time Out 4 <*> Procedure Lumbar Laminectomy Discectomy 1 Level 5 <+> Time Out 5 <*> Procedure Lumbar Laminectomy Discectomy 1 Level 6 <+> Time Out 6 <*> Procedure Lumbar Laminectomy Discectomy 1 Level 7 <+> Time Out 7 <*> Procedure Lumbar Laminectomy Discectomy 1 Level 07/02/19 12:11:02 Song And Dance Performer: LONGGA Modifier: LONGGA 1 <+> Time Out 1 <*> Procedure Lumbar Laminectomy Discectomy 1 Level 07/02/19 11:54:58 Song And Dance Performer: LONGGA Modifier: LONGGA <+> 1 Procedure 2 <*> Procedure Lumbar Laminectomy Discectomy 1 Level 3 <*> Procedure Lumbar Laminectomy Discectomy 1 Level 4 <*> Procedure Lumbar Laminectomy Discectomy 1 Level 5 <*> Procedure Lumbar Laminectomy Discectomy 1 Level 6 <*> Procedure Lumbar Laminectomy Discectomy 1 Level 7 <*> Procedure Lumbar Laminectomy Discectomy 1 Level 07/02/19 11:44:51 Song And Dance Performer: LONGGA Modifier: LONGGA <+> 1 Time In 2 <+> Time In 2 <*> Procedure Lumbar Laminectomy Discectomy 1 Level 3 <+> Time In 3 <*> Procedure Lumbar Laminectomy Discectomy 1 Level 4 <+> Time In 4 <*> Procedure Lumbar Laminectomy Discectomy 1 Level <+> 5 Case Attendee <+> 5 Role Performed <+> 5 Time In <+> 5 Procedure <+> 6 Case Attendee <+> 6 Role Performed <+> 6 Time In <+> 6 Procedure <+> 7 Case Attendee <+> 7 Role Performed <+> 7 Time In <+> 7 Procedure <+> 7 Other Attendee [facility] IntraOp Case Times Entry 1 Patient In Room Time 07/02/19 11:26:00 Out Room Time 07/02/19 12:23:00 Anesthesia Start Time 07/02/19 11:26:00 Stop Time 07/02/19 12:23:00 Anesthesia Ready 07/02/19 11:26:00 Surgery / Procedure Times Start Time 07/02/19 11:51:00 Stop Time 07/02/19 12:11:00 Last Modified By: ENOCH POLK RN 07/02/19 12:22:36 [facility] IntraOp Case Times Audit 07/02/19 12:22:36 Song And Dance Performer: LONGGA Modifier: LONGGA <+> 1 Out Room Time <+> 1 Stop Time 07/02/19 12:11:38 Song And Dance Performer: LONGGA Modifier: LONGGA <+> 1 Stop Time 07/02/19 11:54:53 Song And Dance Performer: LONGGA Modifier: LONGGA <+> 1 Start Time [facility] IntraOp Communication Entry 1 Communication To Family/Significant other Comment PROCEDURE ENDING Communication By ENOCH POLK RN Date and Time 07/02/19 12:12:00 Last Modified By: ENOCH POLK RN 07/02/19 12:17:47 [facility] IntraOp Counts Verification Entry 1 Procedure Lumbar Laminectomy Discectomy 1 Level Count Info Count Type Sponge, Sharps Counts Verification Baseline/pre-procedure Sequence Count Results Correct, surgeon notified Counts Performed By Count Performed By HOLLY MARIA, OR (Scrub) TECH Count Performed By ENOCH POLK RN (RN) Last Modified By: ENOCH POLK RN 07/02/19 11:45:06 [facility] IntraOp Counts Final Entry 1 Procedure Lumbar Laminectomy Discectomy 1 Level Final Count Info Count Type Sponge, Sharps Counts Verification Skin Closure/end of Sequence procedure Count Results Correct, surgeon notified Counts Performed By Count Performed By HOLLY MARIA, OR (Scrub) TECH Count Performed By ENOCH POLK RN (RN) Last Modified By: ENOCH POLK RN 07/02/19 12:13:36 [facility] IntraOp Cultures and Spec Summary Entry 1 Cultrures and Specimens Specimen Ordered: Yes Test(s) Routine/Path-Lab Requested/Final Disposition Last Modified By: ENOCH POLK RN 07/02/19 12:17:17 [facility] IntraOp Departure from OR Entry 1 Integumentary Assessment Integumentary WDL Assessment WDL Skin Description Dry (WDL with exeptions) Transfer/Handoff Transfer to PACU Phase I Handoff Method Bedside/Face to face Post-op Transport Bed (including Via specialty) Patient Transport NEEMA CARSON, Accompanied by JAM CRUZ GARY RN Last Modified By: ENOCH POLK RN 07/02/19 12:17:29 [facility] IntraOp Dressing and Packing Entry 1 Type Dressing Location LEFT POSTERIOR HIP Wound Dressing Item Occlusive dressing, Skin Closure Glue Applied By IRMA TRIPP PA Other Comments DERMABOND, COVADERM Last Modified By: ENOCH POLK RN 07/02/19 12:16:09 [facility] IntraOp Fire Risk Assessment Entry 1 Fire Info Surgical Site or 0- No Incision Above the Xyphoid Open O2 Source 0- No (Mask or Cannula) Available Ignition 1- Yes (ESU, Laser, Light Source) Fire Risk 1 Assessment Score Fire Score Fire Risk Yes Assessment Complete Fire Risk ENOCH POLK RN Assessment Verified By Fire Risk 07/02/19 11:56:00 Assessment Verified Date/Time Fire Risk High Risk Protocol Yes Implemented Standard Fire Yes Safety Precautions Followed Last Modified By: ENOCH POLK RN 07/02/19 11:56:40 [facility] IntraOp Fire Risk Assessment Audit 07/02/19 11:56:40 Song And Dance Performer: LONGGA Modifier: LONGGA <+> 1 Fire Risk Assessment Verified Date/Time <+> 1 High Risk Protocol Implemented [facility] IntraOp General Case Cutter Operator Helper 1 Case Information OR OR 01 SJE Case Level 1 Room Verified Yes Wound Class I - Clean Specialty SN Neurosurgery Anesthesia Type General ASA Class 3 Diagnosis Preop Diagnosis SEVER LEFT SIDED PAIN L4-5 Postop Same As Preop No Postop Diagnosis DICTATED BY Cuca Last Modified By: ENOCH POLK RN 07/02/19 12:08:16 [facility] IntraOp General Case Data Audit 07/02/19 12:08:16 Song And Dance Performer: LONGGA Modifier: LONGGA <+> 1 Postop Same As Preop <+> 1 Preop Diagnosis <+> 1 Postop Diagnosis 07/02/19 12:05:04 Song And Dance Performer: LONGGA Modifier: LONGGA <+> 1 ASA Class <+> 1 Anesthesia Type <+> 1 Room Verified [facility] IntraOp Intraoperative Assessment Entry 1 Valid History / Yes Physical in Chart Preoperative Yes Checklist Reviewed/Evaluated Allergies Reviewed Yes Patient is Latex No Sensitive Isolation Not applicable Precautions Noted Level of WDL Consciousness (WDL = Alert, Oriented to Person, Place, and Time) Skin Assessment Yes Verified Present Upon IVs Arrival to OR Last Modified By: ENOCH POLK RN 07/02/19 11:54:01 [facility] IntraOp Intraoperative Equipment Entry 1 Type Equipment Equipment Intraop Monitoring Antiembolic Devices Antiembolic Devices Sequential compression device, knee high Antiembolic Device Bilateral Location Antiembolic Device [id number] ID Number Scopes Photo/Video Documentation Last Modified By: ENOCH POLK RN 07/02/19 12:13:20 [facility] IntraOp Medication Admin Entry 1 Medication/Irrigant PB irrigation 1000ml solution - [id number] Route of IRRIGATION Administration Dose Volume QS Administered By PADMINI VALLE MD-ORT Procedure Irrigation Last Modified By: ENOCH POLK RN 07/02/19 11:16:05 General Comments: 10ML OF 0.25% MARCAINE WITH EPI INJECTED BY DR. STOUT [facility] IntraOp Patient Positioning Entry 1 Procedure Lumbar Laminectomy Discectomy 1 Level Body Position Prone Left Arm Position Secured on padded arm board Right Arm Position Secured on padded arm board Left Leg Position Uncrossed, parallel Right Leg Position Uncrossed, parallel Feet Uncrossed Yes Pressure Points Yes Checked Positioning Devices Gamaliel Table, Guillermo Frame, Safety Strap, Thighs, Arm Board, Head Rest, Pillows Positioning Device PRONE VIEW HEAD REST Comments USED BY ANESTH. PILLOWS UNDER LOWER LEGS, GEL PADS UNDER ARMS Positioned By ENOCH POLK, HA, NEEMA CARSON CRNA, IRMA TRIPP PA, PADMINI VALLE MD-ORT Position Verified Positioning Yes Verified by Anesthesia Positioning Yes Verified by Surgeon Last Modified By: ENOCH POLK RN 07/02/19 11:56:06 [facility] IntraOp Sign In Entry 1 Patient, Site, Yes Procedure Identified Surgical Consent Yes Confirmed Relevant Surgical Yes Documents Available Surgical Site Yes Marked by person performing procedure Anesthesia Machine Yes Check Completed Medication Checks Yes Completed Allergies Yes Airway Difficult Yes Airway/Aspiration Risk Difficult Yes Airway/Aspiration Intervention Equipment Available Blood Loss Risk No Blood Loss No Intervention Equipment Prepared and Ready Blood Identifiers Not applicable Verified Per Policy Hypothermia Risk Yes Warming Measures Yes Taken Last Modified By: ENOCH POLK RN 07/02/19 11:45:25 [facility] Intra Op Sign Out Entry 1 RN Confirmation Surgical Yes Procedure(s) Identified Instrument, Sponge Yes and Sharps Counts Correct/Documented Equipment Problems N/A Documented Specimen Labeled N/A Correctly Urinary Catheter N/A Documented in IView Acosta Patient Yes Recovery Concerns Reviewed with Anesthesia Provider, Surgeon and RN Acosta Patient Yes Management Concerns Reviewed with Anesthesia Provider, Surgeon and RN Safety Checklist Yes Elements Complete? RN Sign Out ENOCH POLK, HA Signature RN Sign Out 07/02/19 12:16:00 Signature Date/Time Plan of Care Outcome - Fire Risk OUTCOME STATEMENT: Goal met Patient is free from injury related to surgical fire Plan of Care Outcome - Pt Positioning OUTCOME STATEMENT: Goal met Absence of signs and symptoms of positioning injury. Plan of Care Outcome - Skin Prep OUTCOME STATEMENT: Goal met Intraoperative care is consistent with measures to prevent infection Plan of Care Outcome - Xray/Images OUTCOME STATEMENT: Goal met Absence of observable signs or symptoms of radiation injury Plan of Care Outcome - Counts OUTCOME STATEMENT: Goal met Absence of signs and symptoms of injury related to extraneous objects Last Modified By: ENOCH POLK RN 07/02/19 12:16:59 [facility] IntraOp Skin Prep Entry 1 Procedure Lumbar Laminectomy Discectomy 1 Level Prescribed Yes Pre-Surgical Prep Completed Prep Area BACK Intraop Prep Integumentary WDL Assessment WDL Prep Agents Chloraprep Prep by ENOCH POLK RN Hair Removal Methods No hair removal performed Last Modified By: ENOCH POLK RN 07/02/19 11:55:43 [facility] IntraOp Surgical Procedures Entry 1 Procedure Lumbar Laminectomy Discectomy 1 Level Additional LEFT L4-5 DISCECTOMY Procedure Description Primary Procedure Yes Primary Surgeon PADMINI VALLE MD-ORT Start 07/02/19 11:51:00 Stop 07/02/19 12:11:00 Anesthesia Type General Specialty SN Neurosurgery Wound Class I - Clean Last Modified By: ENOCH POLK RN 07/02/19 12:13:01 [facility] IntraOp Surgical Procedures Audit 07/02/19 12:13:01 Song And Dance Performer: LONGGA Modifier: LONGGA <+> 1 Stop 07/02/19 12:07:05 Song And Dance Performer: LONGGA Modifier: LONGGA 1 <*> Procedure Lumbar Laminectomy Discectomy 1 Level 1 <*> Additional Procedure Description LEFT L4-5 LAMINECTOMY WITH DISCECTOMY [facility] IntraOp Temp Regulation Devices Entry 1 Temp Regulation Temperature Forced Air Warming Regulation Device device Temperature 3461 Regulation Device Serial/Unit Number Temperature Upper body Regulation Site Temperature NEEMA CARSON CRNA Regulation Device Applied by Last Modified By: ENOCH POLK RN 07/02/19 11:55:28 [facility] IntraOp Time Out Entry 1 Procedure to be Lumbar Laminectomy Performed Discectomy 1 Level Time Out Time Out Pause Time 07/02/19 11:49:00 All activity Yes suspended (unless life threatening emergency) Team Verbally Correct patient Confirms Information identity, Correct side and site are marked, Consent form is present and accurate, Agreement on the procedure to be done, Correct patient position, Relevant images/results properly labeled/appropriately displayed, Confirm antibiotics have been administered, Confirm the skin prep has dried, Confirm prosthesis/implant/devic e is present, Performed in location of procedure after prepped/draped Antibiotic Yes Prophylaxis Administered Or In Progress Within the Last 60 Minutes Beta Bren N/A Administered Venous Yes Thromboembolism Prophylaxis Required Anticipated Critical Events Surgeon Special equipment need, Special instrumentation need Anesthesia Provider Patient specific concerns Nursing Assures Sterility of instruments, Equipment concerns or issues Essential Imaging Yes Labeled and Displayed Last Modified By: ENOCH POLK RN 07/02/19 11:53:59 [facility]PH[facility]IE IntraOp X-Ray and Images Entry 1 X-Ray/Imaging Type Fluoroscopy Fluoroscopy Type C-Arm Site BACK Computer Field Technician Name Blanca Cartagena, Senior Ui Ux Designer Protective Devices Yes Used Last Modified By: ENOCH POLK RN 07/02/19 11:55:14 Case Comments <None> Finalized By: Margaret Garduno, HA Document Signatures Signed By: ENOCH POLK RN 07/02/19 12:29 Margaret Garduno RN 07/02/19 14:30 Unfinalized History Date/Time Username Reason for Unfinalizing Freetext Reason for Unfinalizing 07/02/19 14:29 PERCY Correct Billing documented in this encounter Plan of Treatment Not on file documented as of this encounter Visit Diagnoses Not on filedocumented in this encounter
--- OUTSIDE RECORDS SUMMARY | 2025-04-20 13:05 | XMS_ITS | Encounter Summary ---
Author Organization [employer] ([place], [place], [place], [place]) Address [address] [place] [address] Care Team Providers Care Rn Radiation Name Role Phone Unavailable Primary Care Provider Unavailabl e Encounter Details Date Type Department Care Team (Late st Contact Info) Description 07/02/2019 Transcribed Document [facility] [place] Family Medicine [facility] [place] [address] ProviderAlly MD [facility] [place] [address] Social History Tobacco Use Types [...] Ally ProviderMD - 07/02/2019 1:28 PM CDT Pain Assessment Entered On: 07/02/2019 17:07 EDT Performed On: 07/02/2019 15:46 EDT by Carmen Meyer RN Intervention Information: acetaminophen-HYDROcodone Performed by Carmen Meyer RN on 07/02/2019 14:46:00 EDT acetaminophen-HYDROcodone,1Tab Oral,Pain (Moderate 4-6) Pain Assessment Pain Assessment : Follow-up assessment Pain Scale Used : 0-10 Scale Carmen Meyer RN - 07/02/2019 17:07 EDT Pain Scale Intensity : 5 Carmen Meyer RN - 07/02/2019 17:07 EDT Image 4 - Images currently included in the form version of this document have not been included in the text rendition version of the form. documented in this encounter Plan of Treatment Not on file documented as of this encounter Visit Diagnoses Not on filedocumented in this encounter
--- OUTSIDE RECORDS SUMMARY | 2025-04-20 13:05 | XMS_ITS | Encounter Summary ---
Author Organization [employer] ([place], [place], [place], [place]) Address [address] [place] [address] Care Team Providers Care Training Consultant Name Role Phone Unavailable Primary Care Provider Unavailabl e Encounter Details Date Type Department Care Team (Late st Contact Info) Description 07/02/2019 Transcribed Document [facility] [place] [facility] [place] [address] ProviderAlly MD [place] [address] Social History Tobacco Use Types [...] Conversion Note - Ally ProviderMD - 07/02/2019 4:51 [place] [address] MARY GRAMAJO :1970 Visit Time:07/02/2019 Your Visit Summary Your Care Team Admitting Physician - PADMINI VALLE MD-ORT Attending Physician - PADMINI VALLE MD-ORT Primary Care Physician - MICHELLE, NOT LISTED Referring Physician - PADMINI VALLE MD-ORT Your Diagnosis Spinal stenosis, lumbar region with neurogenic claudication, Spinal stenosis, lumbar region with neurogenic claudication These Are Your Goals To have little to no pain when going home. Interventions: Educate pt on using pain scale and asking for pain medication when needed. Discharge Vitals Temperature 36.4 ??C Heart Rate 66 Respiratory Rate 16 Blood Pressure 111/86 What to do next Instructions From Your Care Team DISCHARGE PLANS: Patient will have a RW provided by [facility], pt should keep this for 6 yrs per insurance guidelines Discharge Follow Up Instructions: Follow-up in my office, 12-14 days.Prescription.-Check intake sheet from my office for follow-up date and appointment time Follow Up Instructions: Follow up kwame't as written o [facility] Intake Sheet Activity: [place] dressing. Do not remove. May shower with dressing on. She is 1 dressings comes off, cleaned with peroxide, triple antibiotic ointment and new dressing., Discharge Activity: No strenuous activities, Order Comment: Sitting, standing, walking, is fine. Minimize repetitive bending and twisting. May drive vehicle when legs feel normal, and no longer taking medication. And medically stable. Make sure patient has voided is medically stable prior to discharge Diet: Discharge Diet: Regular diet as tolerated Wound/Incision Care Instructions: With Aquasol dressing, patient may shower daily, using antibiotic soap, such as Dial. Dressing change prior to discharge when necessary with Aquasol. Follow-Up Appointments Follow Up with PADMINI VALLE MD-ORT When 07/15/2019 11:00 AM EDT Comments Appointment has been made Where: [address] [place] [address]- Medications What How Much When Instructions Next Dose gabapentin (gabapentin 300 mg oral capsule) 1 Capsule(s) Oral Once a day (at bedtime) When you get home Take your medications faithfully. Do NOT skip medication. Do NOT stop taking medications without the direction of a physician. Carry a list of your medications with you at all times, and take this medication list with you to your first follow up visit. Report any side effects. Avoid herbal remedies unless discussed with your physician. As part of your treatment plan, your physician may have prescribed a limited course of a controlled substance. This medication may be given to help people with moderate or severe pain or for other medical conditions, but there are risks involved with treatment. Common side effects may include nausea, constipation, drowsiness, sweating, itching, dry mouth, and rash. More serious side effects may include cognitive and motor impairment, like problems with thinking, concentrating, alertness, and movement (e.g. slowed reflexes), and driving and operating heavy machinery can be dangerous. It is important for you to talk to your physician if you have these side effects or questions. These controlled substances can produce physical dependence and be habit-forming if taken for an extended period of time, which means that the body has gotten used to them and may experience withdrawal symptoms if they are abruptly stopped. Withdrawal symptoms can include runny nose, sweating, goose bumps, diarrhea, abdominal cramping, rapid heartbeat, difficulty sleeping, and nervousness. Please dispose of unused and medications per your retail pharmacy guidance. Allergies lisinopril (coughing) Immunizations This Visit No Immunizations Found Education Materials What to expect after the Procedure: After the procedure, it is common to have: ??? Pain and swelling. ??? A small amount of blood or clear fluid coming from your incision for up to 7 days ??? It is normal to have a moderate amount of bleeding from the site of the drain that was pulled on the morning after surgery. You can hold pressure on the area for 3-5 minutes and cover with a bandage as needed. Diet: ??? Resume usual diet ??? No alcoholic beverages while taking pain medication ??? Drink 8-10 glasses of water a day to prevent constipation from pain medication ??? Increase fiber to help prevent constipation. Straining can cause increased pressure and pain in your incision area ??? Increase protein to promote healing Driving: ??? Do not drive until your health care provider approves. Ask your health care provider when it is safe to drive if you have an immobilizer on your knee. ??? Do not drive or operate heavy machinery while taking prescription pain medicine. ??? Do not drive for 24 hours if you received a sedative. Activity: ??? No strenuous activity ??? Avoid high-impact activities, including running, jumping rope, and jumping jacks. ??? Avoid sitting for a long time without moving. Get up and move around at least every few hours. ??? Keep legs elevated while seated and place surgery leg on 2-3 pillows, this will decrease swelling ??? Continue using walker until cleared by physical therapy Back Activity ??? Minimize bending, twisting, and lifting. Bathing: ??? May shower ??? Do not take baths, swim, or use a hot tub for one month after surgery. ??? You must be seated to shower until you are no longer using the walker Other: ??? Use ice therapy for 20-30 minutes at a time and leave off for 20-30 minutes at a time. Always keep a towel or cloth between the ice pack and your skin ??? Continue to use Incentive Spirometer 10 times an hour while awake for one month to help prevent pneumonia ??? Leave Aquacel dressing in place until follow-up. Change dressing only if needed with Aquacel dressing that has been sent home with you. Contact a health care provider if: ??? You have more redness, swelling, or pain around your incision. ??? You have more fluid or blood coming from your incision. ??? Your incision or drain site feels warm to the touch. ??? You have pus or a bad smell coming from your incision. ??? You have a fever. ??? Your incision breaks open after your health care provider removes your sutures, skin glue, or adhesive tape. ??? Your prosthesis feels loose. ??? You have knee pain that does not go away. DVT: Blood Clot Blood clots are a common risk after an orthopedic surgery Symptoms: ??? Swelling of your leg or arm, especially if one side is much worse. ??? Warmth and redness of your leg or arm, especially if one side is much worse. ??? Pain in your arm or leg. If the clot is in your leg, symptoms may be more noticeable or worse when you stand or walk. ??? A feeling of pins and needles, if the clot is in the arm. The symptoms of a DVT that has traveled to the lungs (pulmonary embolism, PE) usually start suddenly and include: ??? Shortness of breath while active or at rest. ??? Coughing or coughing up blood or blood-tinged mucus. ??? Chest pain that is often worse with deep breaths. ??? Rapid or irregular heartbeat. ??? Feeling light-headed or dizzy. ??? Fainting. ??? Feeling anxious. ??? Sweating. There may also be pain and swelling in a leg if that is where the blood clot started. How is this prevented? Exercise regularly. For at least 30 minutes every day, engage in: ? Activity that involves moving your arms and legs. ? Activity that encourages good blood flow through your body by increasing your heart rate. ??? Exercise your arms and legs every hour during long-distance travel (over 4 hours). Drink plenty of water and avoid drinking alcohol while traveling. ??? Avoid sitting or lying in bed for long periods of time without moving your legs. ??? Maintain a weight that is appropriate for your height. Ask your health care provider what weight is healthy for you. ??? If you are a woman who is over 35 years of age, avoid unnecessary use of medicines that contain estrogen. These include control pills. ??? Do not smoke, especially if you take estrogen medicines. If you need help quitting, ask your health care provider. ??? Wear compression stockings (if told by your health care provider) to help prevent blood clots from forming. High Fiber/High Protein Diet High fiber foods: To prevent constipation ??? Grains Whole-grain breads. Multigrain cereal. Oats and oatmeal. Brown rice. Barley. Bulgur wheat. Millet. Bran muffins. Popcorn. [place]ver wafer crackers. ??? Vegetables Sweet potatoes. Spinach. Kale. Artichokes. Cabbage. Broccoli. Green peas. Carrots. Squash. ??? Fruits Berries. Pears. Apples. Oranges. Avocados. Prunes and raisins. Dried figs. ??? Meats and Other Protein Sources [place], kidney, ball, and soy beans. Split peas. Lentils. Nuts and seeds. ??? Dairy Fiber-fortified yogurt. ??? Beverages Fiber-fortified soy milk. Fiber-fortified orange juice. ??? Other Fiber bars. High-protein foods: To promote healing High-protein foods contain 4 grams (4 g) or more of protein per serving. They include: ??? Beef, ground sirloin (cooked) ??? 3 oz have 24 g of protein. ??? Cheese (hard) ??? 1 oz has 7 g of protein. ??? Chicken breast, boneless and skinless (cooked) ??? 3 oz have 13.4 g of protein. ??? Cottage cheese ??? 1/2 cup has 13.4 g of protein. ??? Egg ??? 1 egg has 6 g of protein. ??? Fish, filet (cooked) ??? 1 oz has 6???7 g of protein. ??? Garbanzo beans (canned or cooked) ??? 1/2 cup has 6???7 g of protein. ??? Kidney beans (canned or cooked) ??? 1/2 cup has 6???7 g of protein. ??? Teague (cooked) ??? 3 oz has 24 g of protein. ??? Milk ??? 1 cup (8 oz) has 8 g of protein. ??? Nuts (peanuts, pistachios, almonds) ??? 1 oz has 6 g of protein. ??? Peanut butter ??? 1 oz has 7???8 g of protein. ??? Pork tenderloin (cooked) ??? 3 oz has 18.4 g of protein. ??? Pumpkin seeds ??? 1 oz has 8.5 g of protein. ??? Soybeans (roasted) ??? 1 oz has 8 g of protein. ??? Soybeans (cooked) ??? 1/2 cup has 11 g of protein. ??? Soy milk ??? 1 cup (8 oz) has 5???10 g of protein. ??? Soy or vegetable elis ??? 1 elis has 11 g of protein. ??? Greer seeds ??? 1 oz has 5.5 g of protein. ??? Tofu (firm) ??? 1/2 cup has 20 g of protein. ??? Tuna (canned in water) ??? 3 oz has 20 g of protein. ??? Yogurt ??? 6 oz has 8 g of protein. Fall Prevention ??? Use night lights. ??? Install grab bars by the toilet and in the tub and shower. Do not use towel bars as grab bars. ??? Use non-skid mats or decals on the floor of the tub or shower. ??? If you need to sit down while you are in the shower, use a plastic, non-slip stool. ??? Keep the floor dry. Immediately clean up any water that spills on the floor. ??? Remove soap buildup in the tub or shower on a regular basis. ??? Remove throw rugs and other tripping hazards from the floor. ??? Place frequently used items in [id number]-tr-secor places ??? Keep electrical cables out of the way. ??? Do not leave any items on the stairs. ??? Make sure that there are handrails on both sides of the stairs. Fix handrails that are broken or loose. Make sure that handrails are as long as the stairways. ??? Check any carpeting to make sure that it is firmly attached to the stairs. Fix any carpet that is loose or worn. ??? Avoid having throw rugs at the top or bottom of stairways, or secure the rugs with carpet tape to prevent them from moving. ??? Wear closed-toe shoes that fit well and support your feet. Wear shoes that have rubber soles or low heels. ??? Use mobility aids as needed, such as canes, walkers, scooters, and crutches. ??? Turn on lights if it is dark. Replace any light bulbs that burn out. ??? Set up furniture so that there are clear paths. Keep the furniture in the same spot. ??? Be aware of any and all pets. ??? Review your medicines with your healthcare provider. Some medicines can cause dizziness or changes in blood pressure, which increase your risk of falling. Hand Washing You should wash your hands whenever you think they are dirty. You should also wash your hands: ??? After: ? Working or playing outside. ? Touching an animal or its toys or leash. ? Handling livestock. ? Using the bathroom. ? Using household bill adjuster or toxic chemicals. ? Touching or taking out the garbage. ? Touching anything dirty around your home. ? Handling soiled clothes or rags. ? Taking care of a sick child. This includes touching used tissues, toys, and clothes. ? Sneezing, coughing, or blowing your nose. ? Using public transportation. ? Shaking hands. ? Using a phone, including your mobile phone. ? Touching money. ??? Before and after: ? Preparing food. ? [...] 4. Repeat the process for each step. ??? Always keep both feet within the width of the walker's legs or wheels. ??? When using your walker, you should not feel like you need to lean forward or to the side to keep your hands on the handgrips. ??? Make sure you are following any weight-bearing instructions that your health care provider has given you. ??? Be careful not to let the walker get too far ahead of you as you walk. ??? If your walker does not glide well [...] 5. Step down with your stronger leg. acetaminophen and oxycodone (a SEET a MIN oh fen and OX i KOE done) Endocet 10/325, Endocet 2.5/325, Endocet 5/325, Endocet 7.5/325, Nalocet, Percocet 10/325, Percocet 2.5/325, Percocet 5/325, Percocet 7.5/325, Primalev, Primlev, Roxicet, Xartemis XR What is the most important information I should know about acetaminophen and oxycodone? MISUSE OF OPIOID MEDICINE CAN CAUSE ADDICTION, OVERDOSE, OR . Keep the medication in a place where others cannot get to it. An overdose of acetaminophen can damage your liver or cause . Call your doctor at once if you have pain in your upper stomach, loss of appetite, dark urine, or jaundice (yellowing of your skin or eyes). Taking opioid medicine during may cause life-threatening withdrawal symptoms in the . Fatal side effects can occur if you use opioid medicine with alcohol, or with other drugs that cause drowsiness or slow your breathing. Stop taking this medicine and call your doctor right away if you have skin redness or a rash that spreads and causes blistering and peeling. What is acetaminophen and oxycodone? Oxycodone is an opioid pain medication, sometimes called a narcotic. Acetaminophen is a less potent pain reliever that increases the effects of oxycodone. Acetaminophen and oxycodone is a combination medicine used to relieve moderate to severe pain. Acetaminophen and oxycodone may also be used for purposes not listed in this medication guide. What should I discuss with my healthcare provider before taking acetaminophen and oxycodone? You should not use this medicine if you are allergic to acetaminophen or oxycodone, or if you have: ?? severe asthma or breathing problems; or ?? a blockage in your stomach or intestines. Tell your doctor if you have ever had: ?? liver disease; ?? a drug or alcohol addiction; ?? kidney disease; ?? a head injury or seizures; ?? urination problems; or ?? problems with your thyroid, pancreas, or gallbladder. If you use opioid medicine while you are , your baby could become dependent on the drug. This can cause life-threatening withdrawal symptoms in the baby after it is born. Babies born dependent on opioids may need medical treatment for several weeks. Do not breast-feed. This medicine can pass into breast milk and cause drowsiness, breathing problems, or in a nursing baby. How should I take acetaminophen and oxycodone? Follow all directions on your prescription label. Never take this medicine in larger amounts, or for longer than prescribed. An overdose can damage your liver or cause . Tell your doctor if the medicine seems to stop working as well in relieving your pain. Never share this medicine with another person, especially someone with a history of drug abuse or addiction. MISUSE CAN CAUSE ADDICTION, OVERDOSE, OR . Keep the medicine in a place where others cannot get to it. Selling or giving away acetaminophen and oxycodone is against the law. Measure liquid medicine carefully. Use the dosing syringe provided, or use a medicine dose-measuring device (not a kitchen spoon). If you need surgery or medical tests, tell the doctor ahead of time that you are using this medicine. You should not stop using this medicine suddenly. Follow your doctor's instructions about tapering your dose. Store at room temperature away from moisture and heat. Keep track of your medicine. You should be aware if anyone is using it improperly or without a prescription. Do not keep leftover opioid medication. Just one dose can cause in someone using this medicine accidentally or improperly. Ask your pharmacist where to locate a drug take-back disposal program. If there is no take-back program, flush the unused medicine down the toilet. What happens if I miss a dose? Since this medicine is used for pain, you are not likely to miss a dose. Skip any missed dose if it is almost time for your next dose. Do not use two doses at one time. What happens if I overdose? Seek emergency medical attention or call the Poison Help line at . An overdose of acetaminophen and oxycodone can be fatal. The first signs of an acetaminophen overdose include loss of appetite, nausea, vomiting, stomach pain, sweating, and confusion or weakness. Later symptoms may include pain in your upper stomach, dark urine, and yellowing of your skin or the whites of your eyes. Overdose can also cause severe muscle weakness, pinpoint pupils, very slow breathing, extreme drowsiness, or coma. What should I avoid while taking acetaminophen and oxycodone? Avoid driving or operating machinery until you know how this medicine will affect you. Dizziness or drowsiness can cause falls, accidents, or severe injuries. Do not drink alcohol. Dangerous side effects or could occur. Ask a doctor or pharmacist before using any other medicine that may contain acetaminophen (sometimes abbreviated as APAP). Taking certain medications together can lead to a fatal overdose. What are the possible side effects of acetaminophen and oxycodone? Get emergency medical help if you have signs of an allergic reaction: hives; difficulty breathing; swelling of your face, lips, tongue, or throat. Opioid medicine can slow or stop your breathing, and may occur. A person caring for you should seek emergency medical attention if you have slow breathing with long pauses, blue colored lips, or if you are hard to wake up. In rare cases, acetaminophen may cause a severe skin reaction that can be fatal. This could occur even if you have taken acetaminophen in the past and had no reaction. Stop taking this medicine and call your doctor right away if you have skin redness or a rash that spreads and causes blistering and peeling. Call your doctor at once if you have: ?? noisy breathing, sighing, shallow breathing; ?? a light-headed feeling, like you might pass out; ?? weakness, tiredness, fever, unusual bruising or bleeding; ?? confusion, unusual thoughts or behavior; ?? problems with urination; ?? liver problems--nausea, upper stomach pain, tiredness, loss of appetite, dark urine, asad-colored stools, jaundice (yellowing of the skin or eyes); or ?? low cortisol levels-- nausea, vomiting, loss of appetite, dizziness, worsening tiredness or weakness. Seek medical attention right away if you have symptoms of serotonin syndrome, such as: agitation, hallucinations, fever, sweating, shivering, fast heart rate, muscle stiffness, twitching, loss of coordination, nausea, vomiting, or diarrhea. Serious side effects may be more likely in older adults and those who are overweight, malnourished, or debilitated. Long-term use of opioid medication may affect fertility (ability to have children) in men or women. It is not known whether opioid effects on fertility are permanent. Common side effects include: ?? dizziness, drowsiness, feeling tired; ?? feelings of extreme happiness or sadness; ?? nausea, vomiting, stomach pain; ?? constipation; or ?? headache. This is not a complete list of side effects and others may occur. Call your doctor for medical advice about side effects. You may report side effects to FDA at 5-016-HCS-8270. What other drugs will affect acetaminophen and oxycodone? You may have breathing problems or withdrawal symptoms if you start or stop taking certain other medicines. Tell your doctor if you also use an antibiotic, antifungal medication, heart or blood pressure medication, seizure medication, or medicine to treat HIV or hepatitis C. Opioid medication can interact with many other drugs and cause dangerous side effects or . Be sure your doctor knows if you also use: ?? cold or allergy medicines, bronchodilator asthma/COPD medication, or a diuretic ('water pill'); ?? medicines for motion sickness, irritable bowel syndrome, or overactive bladder; ?? other narcotic medications--opioid pain medicine or prescription cough medicine; ?? a sedative like Valium--diazepam, alprazolam, lorazepam, Xanax, Klonopin, Versed, and others; ?? drugs that make you sleepy or slow your breathing--a sleeping pill, muscle relaxer, medicine to treat mood disorders or mental illness; ?? drugs that affect serotonin levels in your body--a stimulant, or medicine for depression, Parkinson's disease, migraine headaches, serious infections, or nausea and vomiting. This list is not complete. Other drugs may affect acetaminophen and oxycodone, including prescription and btyx-fge-knzruyu medicines, vitamins, and herbal products. Not all possible interactions are listed here. Where can I get more information? Your doctor or pharmacist can provide more information about acetaminophen and oxycodone. Remember, keep this and all other medicines out of the reach of children, never share your medicines with others, and use this medication only for the indication prescribed. Every effort has been made to ensure that the information provided by [employer]. ('[employer]') is accurate, up-to-date, and complete, but no guarantee is made to that effect. Drug information contained herein may be time sensitive. [employer] information has been compiled for use by healthcare practitioners and consumers in the [place] and therefore [employer] does not warrant that uses outside of the [place] are appropriate, unless specifically indicated otherwise. [employer] drug information does not endorse drugs, diagnose patients or recommend therapy. [employer] drug information is an informational resource designed to assist licensed healthcare practitioners in caring for their patients and/or to serve consumers viewing this service as a supplement to, and not a substitute for, the expertise, skill, knowledge and judgment of healthcare practitioners. The absence of a warning for a given drug or drug combination in no way should be construed to indicate that the drug or drug combination is safe, effective or appropriate for any given patient. [employer] does not assume any responsibility for any aspect of healthcare administered with the aid of information [employer] provides. The information contained herein is not intended to cover all possible uses, directions, precautions, warnings, drug interactions, allergic reactions, or adverse effects. If you have questions about the drugs you are taking, check with your doctor, nurse or pharmacist. Copyright 3104-7574 [employer]. Version: 18.02. Revision Date: 08/19/2018. Emergency Awareness and Preventative Care STROKE is an EMERGENCY Every Minute Counts Act FAST and Check for these signs: FACE Does the face look uneven? ARM Does one arm drift down? SPEECH Does their speech sound strange? TIME Call at any sign of stroke Stroke Risk Factors Atrial Fibrillation (irregular heartbeat) Diabetes Family history of stroke Heart Disease Heavy alcohol use High Blood Pressure High Cholesterol Physical inactivity and obesity Smoking Cigarette Smoking The facts are clear, cigarette smoking will shorten your life. Smoking can cause many illnesses along the way. As a healthcare provider, we recommend that you stop smoking. Assistance with quitting is available by contacting 0-303-TDCF-NOW. This is a free resource providing counseling, support, and referral. Or you may contact your personal physician. National Suicide Prevention Lifeline: The National Suicide Prevention Lifeline is a national network of local crisis centers that provides free and confidential emotional support to people in suicidal crisis or emotional distress 24 hours a day, 7 days a week. Don't Wait! Stop a Heart Attack Before it Starts What is a heart attack? A heart attack is damage or to a part of the heart from severely decreased or lack of blood flow to the heart. Over time, arteries can become narrow from the buildup of fat and cholesterol, which is called plaque. The plaque can rupture causing a blood clot to form. When the blood clot forms, the artery can become severely narrowed or completely blocked, causing a heart attack. Heart attack is the leading cause of in the [place]. 85% of muscle damage occurs within the first 2 hours. Delay in the recognition of heart attack symptoms increases the chances of . Know the early symptoms of a heart attack: Nausea Feeling of fullness in chest Jaw Pain Pain that travels down one or both arms Fatigue/being tired Anxiety Back Pain Chest pressure, squeezing, or discomfort Shortness of breath Sweating, or a cold sweat Feeling of impending doom There are unusual signs of a heart attack, too! Women, the elderly, and diabetics may present with atypical symptoms: Fainting/dizziness Weakness Confusion Risk Factors for a Heart Attack Some heart disease risk factors, such as age and family history, cannot be changed. Others, like smoking and lack of exercise, can be changed. Smoking High Cholesterol High Blood Pressure Family History Obesity Age Gender (Males are at higher risk) Lack of Exercise Diabetes Diet Stress Excessive Alcohol Intake If you or someone you know is experiencing the signs and symptoms of a heart attack, DON???T DELAY. Call immediately and seek help. If someone collapses, perform CPR! Do not attempt to drive if you are having symptoms of heart attack. Hands-Only CPR Why Hands-Only CPR? Hands-Only CPR has been shown to be as effective as conventional CPR for cardiac arrests that occur outside of a hospital. Survival depends on immediately receiving CPR from someone nearby. How do you perform Hands-Only CPR? There are two easy steps: Call if you see a teen or adult collapse Push hard and fast in the center of the chest at a beat of 100 beats per minute. Save a life! 4 WAYS TO GET AHEAD OF SEPSIS SEPSIS is a MEDICAL EMERGENCY. Time matters! Infections put you and your family at risk for a life-threatening condition called sepsis. Sepsis is the body's extreme response to an infection. It is life-threatening, and without timely treatment, sepsis can rapidly lead to tissue damage, organ failure, and . Sepsis happens when an infection you already have-in your skin, lungs, urinary tract or somewhere else-triggers a chain reaction throughout your body. 1 PREVENT INFECTIONS Take good care of chronic conditions. Talk to your doctor about getting the recommended vaccines. 2 PRACTICE GOOD HYGIENE Wash your hands frequently. Keep cuts or open sores clean and covered until they are healed. 3 KNOW THE SYMPTOMS Confusion or disorientation Shortness of breath High heart rate Fever, shivering, or feeling very cold Extreme pain or discomfort Clammy or sweaty skin 4 ACT FAST Get medical care IMMEDIATELY if you suspect sepsis or if you have an infection that is not getting better or is getting worse. To learn more about sepsis and how to prevent infections, visit www.cdc.gov/sepsis. Test Results Laboratory or Other Results This Visit (last charted value for your 07/02/2019 visit) Urinalysis 07/02/2019 9:21 AM Urine Nitrite: Negative Urine Leukocyte Esterase: Negative Urine Appearance: Cloudy Urine Glucose Dipstick: Negative Urine Blood Dipstick: Trace Urine Type: Clean Catch Urine Urobilinogen Dipstick: 0.2 EU/dL -- Normal range between ( 0.2 and 1.0 ) Urine Protein Dipstick: Negative Urine Color: Yellow Urine Ketones Dipstick: Negative Urine pH Dipstick: 5.0 -- Normal range between ( 6.0 and 8.0 ) Urine Bilirubin Dipstick: Negative Urine Specific Milmine: 1.019 -- Normal range between ( 1.005 and 1.030 ) Endocrinology 07/02/2019 9:21 AM HCG Urine Qualitative: Negative Patient Name:AVILA MARY LEEJUAN I have received and understand this information and was given the opportunity to ask questions. Patient/Charge Operator Name: Patient/Charge Operator Signature: Relationship to Patient: Clinician/Hospital Charge Operator Signature: Date: Electronically signed by Sven, [facility] Conversion Composing Room Supervisor Addie at 01/07/2023 8:03 PM CDT documented in this encounter Plan of Treatment Not on file documented as of this encounter Visit Diagnoses Not on filedocumented in this encounter
--- OUTSIDE RECORDS SUMMARY | 2025-04-20 13:05 | XMS_ITS | Clinical Summary ---
Author Organization [employer] ([place], [place], [place], [place]) Address [address] [place] [address] Care Team Providers Care Alternative Financing Specialist Name Role Phone Unavailable Primary Care [...]
--- OUTSIDE RECORDS SUMMARY | 2025-04-20 13:05 | XMS_ITS | Encounter Summary ---
Author Organization [employer] ([place], [place], [place], [place]) Address [address] [place] [address] Care Team Providers Care Notch Grinder Name Role Phone Unavailable Primary Care Provider Unavailabl e Encounter Details Date Type Department Care Team (Late st Contact Info) Description 07/02/2019 Transcribed Document [facility] [place] [address] [place] [address] ProviderAlly MD [facility] [place] [address] Social History Tobacco Use Types [...] Conversion Note - Historical ProviderMD - 07/02/2019 1:52 PM CDT Stroke/Warfarin Instructions Entered On: 07/02/2019 13:52 EDT Performed On: 07/02/2019 13:52 EDT by Jodi Henning RN Stroke/Warfarin Instructions Stroke/TIA Discharge Ins : N/A Warfarin Discharge Ins : N/A Jodi Henning RN - 07/02/2019 13:52 EDT documented in this encounter Plan of Treatment Not on file documented as of this encounter Visit Diagnoses Not on filedocumented in this encounter
--- OUTSIDE RECORDS SUMMARY | 2025-04-20 13:05 | XMS_ITS | Encounter Summary ---
Author Organization [employer] ([place], [place], [place], [place]) Address [address] [place] [address] Care Team Providers Care Master Control Engineer Name Role Phone Unavailable Primary Care Provider Unavailabl e Encounter Details Date Type Department Care Team (Late st Contact Info) Description 07/02/2019 Transcribed Document [facility] [place] Family [place] [facility] [place] [address] ProviderAlly [place] [facility] [place] [address] Social History Tobacco Use Types [...] Conversion Note - Ally ProviderMD - 07/02/2019 11:40 AM CDT STEPHANIE Main OR PreOp Summary Primary Physician: PADMINI VALLE MD-ORT Finalized Date/Time: 07/02/19 11:26:32 Pt. Name: MARY BLANDON /Sex: 1970 Female Med Rec #: [id number] Physician: PADMINI VALLE MD-ORT Financial #: [id number] Pt. Type: O Room/Bed: Admit/Disch: 07/02/19 08:52:00 - Institution: [facility] [place] PreOp Case Times Entry 1 In Preop 07/02/19 09:00:00 Ready for Holding n/a Room Patient Ready for 07/02/19 09:45:00 Surgery Patient Out of Preop 07/02/19 11:25:00 Patient Out of n/a Holding Room Last Modified By: PAULINA MENEZES 07/02/19 11:26:31 [facility] PreOp Case Times Audit 07/02/19 11:26:31 Director Post: FLOYDSF Modifier: [email or web address] <+> 1 Patient Out of Preop 07/02/19 09:45:30 Director Post: FLOYDSF Modifier: FLOYDSF <+> 1 Patient Ready for Surgery Finalized By: PAULINA MENEZES Document Signatures Signed By: PAULINA MENEZES 07/02/19 11:26 Electronically signed by Sven [facility] Conversion Carbon Rod Inserter Cerner at 01/07/2023 8:23 PM CDT documented in this encounter Plan of Treatment Not on file documented as of this encounter Visit Diagnoses Not on filedocumented in this encounter
--- OUTSIDE RECORDS SUMMARY | 2025-04-20 13:05 | XMS_ITS | Encounter Summary ---
Author Organization [employer] ([place], [place], [place], [place]) Address [address] [place] [address] Care Team Providers Care Sales Officer Name Role Phone Unavailable Primary Care Provider Unavailabl e Encounter Details Date Type Department Care Team (Late st Contact Info) Description 07/02/2019 Transcribed Document [facility] [place] [facility] [place] [address] ProviderAlly MD [facility] [place] [address] Social History Tobacco Use Types [...] Conversion Note - Historical ProviderMD - 07/02/2019 3:17 PM CDT Initial Discharge Planning Entered On: 07/02/2019 15:18 EDT Performed On: 07/02/2019 15:17 EDT by LEANDRO CASTILLO Care Management-Liquor Store Manager Initial Assessment I Previously Documented Living Environment : No qualifying data available. Living Situation : Home Patient Lives With : Spouse Emergency Contact #1 : Brennan Emergency Contact #1 Phone Number : [phone] Emergency Contact #1 Relationship : Emergency Contact #2 : . Emergency Contact #2 Phone Number : . Emergency Contact #2 Relationship : . LEANDRO CASTILLO Care Management-Liquor Store Manager - 07/02/2019 15:17 EDT Initial Assessment II Sensory and Motor Deficits : Other: lumbar fusion Current Home Treatments and Equipment : None LEANDRO CASTILLO Care Management-Liquor Store Manager - 07/02/2019 15:17 EDT Discharge Needs I Anticipated Discharge Date : 07/02/2019 EDT Anticipated Discharge To, CM : Home with home health Current Home Treatment/Equipment : Current Home Treatment/Equipment No qualifying data available. Post Acute/Home Treatments : Walker Documentation Status Complete : Yes LEANDRO CASTILLO Care Management-Liquor Store Manager - 07/02/2019 15:17 EDT Discharge Needs II Professional Skilled Services : Professional Skilled Services No qualifying data available. Discharge Options Discussed with Patient : DME LEANDRO CASTILLO Care Management-Liquor Store Manager - 07/02/2019 15:17 EDT documented in this encounter Plan of Treatment Not on file documented as of this encounter Visit Diagnoses Not on filedocumented in this encounter
--- OUTSIDE RECORDS SUMMARY | 2025-04-20 13:05 | XMS_ITS | Encounter Summary ---
Author Organization [employer] ([place], [place], [place], [place]) Address [address] [place] [address] Care Team Providers Care Infantry Weapons Officer Name Role Phone Unavailable Primary Care Provider Unavailabl e Encounter Details Date Type Department Care Team (Late st Contact Info) Description 07/02/2019 Transcribed Document [facility] [place] Medicine [facility] [place] [address] ProviderAlly MD [address] [place] [address] Social History Tobacco Use Types Packs/Day [...] Note - Ally Iqbal MD - 07/02/2019 12:19 PM CDT Patient: MARY GRAMAJO Age: 48 years Sex: Female : 1970 Associated Diagnoses: None Author: JHONY VALLE MD-ORT Operative Report DATE OF PROCEDURE: PREOPERATIVE DIAGNOSIS(ES): Left, L4-5 disc herniation. POSTOPERATIVE DIAGNOSIS(ES): Left L4-5 disc herniation. Transforaminal, intraforaminal PROCEDURE: L4-5 left-sided discectomy. Far lateral approach, wiltze approach SURGEON: Jhony Valle MD. EXECUTIVE VICE PRESIDENT: Ariel Polanco PA-C The ophthalmic assistant, are to assistance with transferring of the patient on the preoperative stretcher of the OR table and positioning of the visit patient on the table. During surgery care for retraction and suctioning of the nerve root for allow for visualization protection for safe surgery. At the end of procedure assisted with closure, transferring of the patient off the operative table, onto the postoperative stretcher, so the patient may be transferred to recovery room. ANESTHESIA: General. ESTIMATED BLOOD LOSS: Less than 20 mL COMPLICATIONS: None. FLUOROSCOPY TIME 1 minute 55 seconds FINDINGS: Herniated disc, left side, compressed Against the left L L5 nerve root. SURGICAL INDICATORS: I pain with left lower extremity pain. L5 pain pattern. Greater than 1 year duration. Any Ambulation increasing pain, with both mechanical symptoms, and neurologic symptoms. Neurologic symptoms L5 radiculopathy. Treatment has included physical therapy exercises nonsteroidals, pain medication, time, cortisone injection. Temporary improvement cortisone injection. Imaging Studies X-rays-loss of disc space loss of disc space L1-2, possibly the space, L4-5. MRI [id number] lateral recess stenosis, L4-5, with a disc protrusion, compressing up, migrated into the neural foramen and into the the lateral recess, of L4, causing an L5 nerve root compressive lesion. The lateral recess stenosis, involves the area underneath the facet joints. Left side. RECOMMENDATION: Have encouraged the patient to try to live with the patient symptoms. Patient states this is not possible. Treatment options were reviewed. Laminectomy facetectomy discectomy, this certainly good option. Unfortunately this may destabilize spine further, requiring fusion. Alternatively, try to decompress the nerve root with just a simple discectomy, only tried remove that portion of the disc off the nerve root. And then this makes more sense. This plate resection of the facet joint will not be performed, and would not destabilize the patient's spine further. I explained that we will be doing this for far lateral approach, through a Valerio type approach, to identify the disc and the nerve root, and the decompress the nerve root. Symptoms correlate with the left L4-5 herniation, nerve root symptoms of L4 and L5 consistent weakness in the knee, weakness in the foot, numbness anterior laterally thigh and calf. Alternative procedures were reviewed, including all risks and possible complications, especially including recurrence, continuing pain worsening of the pain infection, discitis, further surgery. FINDINGS: Lateral recessed stenosis, secondary to disc protrusion, causing nerve root compression, with nerve root decompressed at the end of the procedure. RISKS Nerve damage-minimize with 4 power magnification, careful retraction is suctioning, good visualization. X-rays. Spine surgery techniques. CSF leakage-minimal chance of this occurring, minimize with gentle retraction, laminectomy, or for protecting the dura, careful suctioning. Neuropathy-careful management of the neural structures. Gentle retraction. No pressure. Recurrence-careful cleaning of the disc, washing of the disc, reaching within the disc, and removing any other disc material Repeat surgery-may require later fusion, we made extreme attempt not to destabilize a spiral by not resecting any of his the facet joint other than exactly where the nerve root was. Not limited that certainly including all the above. PATIENT QUALITY REPORTING SERVICES Timeout Antibiotics [id number] cephalosporin-not acceptable-patient has allergy. Vancomycin used Antibiotics administered less than 1 hour before surgery Antibiotics-discontinued postop within 24 hours Catheter-not used. DVT prophylaxis. DESCRIPTION OF PROCEDURE: Procedure risks were reviewed with the patient. The patient was brought into the operating room. Anesthesia, DVT protocol. Patient was placed prone on the OR table. Very gently moving the patient over from preoperative stretcher onto the OR table, carefully padding the pressure areas. X-ray brought in, confirming the correct position. Washing prep, sterile draping. A timeout. Far lateral approach. Left side. Coming approximately 10 cm off the midline. Confirmation with 2 plane fluoroscopy. Local infiltration of skin and subcutaneous tissue, down all the way down to the level of the disc. Cone of of anesthetic tissue was performed from the skin towards the disc. Confirmation with x-ray. Local infiltration to skin down onto the disc, through the muscle. Under 2 plane fluoroscopy, a small skin incision, measuring just over half an inch in length, was made. Through this, the soft tissue guidewire, was placed through the soft tissues, towards the L4-5 foramen. Guidewire placed. Soft tissue dilators by sequential placement of the soft tissue dilator down onto the L4-5 disc, and placement of the tubular retractor. Confirmation with 2 plane fluoroscopy. Tubular retractor, carefully positioned, carefully protecting the exiting L4 nerve root and the traversing L5 nerve root. Visualization of the disc and the nerve root. This then was followed, the soft tissue dilators, gently bringing of the soft tissue dilators up, to the pedicle, of L5, and then bringing the working channel down onto the pedicle of L5, I line for careful retraction of the exiting L4 nerve root. This allowed for visualization of the L4-5 disc, and confirmation a 2 plane fluoroscopy. At this point a small annulotomy was performed. This was done directly over the herniation. Annulotomy performed, so the region identified a portion of disc, and was approximately 4 large pieces of disc. An carefully moving of the pituitaries, and a medial direction lateral direction, and then a cephalad direction to get into the axilla of the nerve root. Neural monitoring was performed during this procedure. The neural monitoring remained normal throughout the procedure. Identification of the disc. Disc carefully removed off the nerve, with direct visualization, and resecting the disc back, thinks it is no more loose disc material, and the area of the foramen, and reaching into the disc, true erode the remainder of the disc material at any discussion of that may be loose and minimize the chance of another recurrent herniation. Advancement of the working channel, working this under the disc, towards the medial side of the disc. Central portion of the disc was removed. And the portion of the distal is undermining the nerve root. Carefully irrigation, and then curettage of the endplate L4-L5, in the area of the herniation to minimize the chance of recurrent herniation. Multiple passes, washing off the nerve root, and washing of the disc material. The reaching into the distal portion of the disc was no further disc material that was loose within the disc space. Confirmation with fluoroscopy. Then disc lavage, washing of the disc space. No further disc material was washed free. This was from both the disc space, and in the sub-ligamentous portion. There was further washed out. Approximate 40 mg of Depo-Medrol was placed only on the nerve root. Nowhere else. The deep closure with #1 Vicryl. subcutaneous closed with 2-0 Vicryl. Skin with mauro. Antibiotic dressing with Dermabond. Patient is a awakened and transferred to recovery room in good condition. Sincerely-Dr. Valle. July 02, 2019. 12:30 Eastern standard time. Jhony Valle M.D. documented in this encounter Plan of Treatment Not on file documented as of this encounter Visit Diagnoses Not on filedocumented in this encounter
--- OUTSIDE RECORDS SUMMARY | 2025-04-20 13:05 | XMS_ITS | Encounter Summary ---
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 Name Role Phone Unavailable Primary Care Provider Unavailabl e Encounter Details Date Type Department Care Team (Late st Contact Info) Description 07/02/2019 Transcribed Document [facility] [place] [facility] [place] [address] ProviderAlly MD [address] [place] [id number] Social History Tobacco Use Types Packs/Day [...] ProviderMD - 07/02/2019 1:28 PM CDT Evaluation, Physical Therapy Entered On: 07/02/2019 15:17 EDT Performed On: 07/02/2019 15:01 EDT by Stacey Ko STUDENT General Information, PT Visit Type, PT : Initial evaluation Stacey Ko STUDENT - 07/02/2019 15:01 EDT Patient Orders : Order Date Order Ordering 07/02/2019 08:43 Consult to Physical Therapy Ordered By: PADMINI VALLE MD-ORT 07/02/2019 13:28 PT Evaluation and Treatment Ordered By: PADMINI VALLE MD-ORT Active Diagnoses : No Qualifying Diagnoses Tacho Bagley, Physical Therapist - 07/02/2019 15:24 EDT Therapy Diagnosis, PT : aftercare following L4-5 discectomy Stacey Ko STUDENT - 07/02/2019 15:01 EDT Admission Date : 07/02/2019 08:52 Tacho Bagley, Physical Therapist - 07/02/2019 15:24 EDT Co-treated by, PT : Occupational Therapist Stacey Ko, STUDENT - 07/02/2019 15:01 EDT Personal Devices : Personal Devices No Devices Recorded Assistive Devices : Assistive Devices No Devices Recorded Tacho Bagley, Physical Therapist - 07/02/2019 15:[address] : Log roll precautions, Spinal Precautions General Information Comment, PT : Pt s/p L4-5 discectomy on 07/02/19. Stacey Ko STUDENT - 07/02/2019 15:01 EDT General Status Patient Received Status : Supine in bed, HOB elevated, Other: IV, scds Treatment Start Time : 07/02/2019 14:40 EDT Patient Left Status : Up in chair, Family/Visitors at bedside, Communication board completed, All needs met and within reach RN/PCT Informed Comment : RN ok'd PT Treatment End Time : 07/02/2019 15:05 EDT Treatment Time : 25 Minute(s) Stacey Ko STUDENT - 07/02/2019 15:01 EDT History and Environment Living Situation, Therapy : Home Patient Lives With : Spouse Persons Assisting Patient at Home : Spouse Professional Skilled Services : None Persons Providing Information : Patient Home Equipment Therapy, PT : Cane Cane : Cane, single point Home Setup : One story Stairs : Yes Stair Location(s) : Outside Outside Stairs, Number of Steps : 1 Outside Stairs Comment : Goes through the back with no steps. Stacey Ko STUDENT - 07/02/2019 15:01 EDT Prior Level of Function PT GRID Prior LOF Ambulation, Household : Independent Prior LOF Ambulation, Community : Independent Prior LOF Bed Mobility : Independent Prior LOF Toileting : Independent Prior LOF Transfer : Independent Stacey Ko STUDENT - 07/02/2019 15:01 EDT Upper Extremity Right UE Active ROM : WFL Right UE Strength : WFL Left UE Active ROM : WFL Left UE Strength : WFL Right UE Strength : WFL Left UE Strength : WFL Stacey Ko STUDENT - 07/02/2019 15:01 EDT Lower Extremity RLE Active ROM : WFL Right LE Strength : WFL LLE Active ROM : WFL Left LE Strength : WFL Lower Extremity Comment : MMT: 5/5 grossly except L dorsiflexion 4+/5 Stacey Ko, STUDENT - 07/02/2019 15:01 EDT Functional Mobility Mobility Grid Sit to Stand : Supervision/set-up Stand to Sit : Supervision/set-up Tacho Bagley, Physical Therapist - 07/02/2019 15:24 EDT Supine to Sit : Rehab Minimal assistance (Comment: log roll, minimal tactile cueing [Stacey Ko, STUDENT - 07/02/2019 15:24 EDT] ) Stacey Ko STUDENT - 07/02/2019 15:01 EDT Supine to Sit Device : Rails Sit to Stand Device : Belt, gait, Walker, front wheel Stand to Sit Device : Belt, gait, Walker, front wheel Stacey Ko STUDENT - 07/02/2019 15:01 EDT Gait Training/Assessment, PT Gait Assistance Level : Supervision Walking Distance : 175ft Ambulatory Devices : Gait belt, Walker, front wheel Gait Deviations : Yes Gait Training Comment : -pt began gait with antalgic gait on the L but was cued to have reciprocal heel/toe gait which improved posture and equal stance time between LE, overall gait quality. Stacey Ko STUDENT - 07/02/2019 15:01 EDT Neuromuscular Reeducation, PT Balance Comment : Good for static/dynamic sitting Good for static/dynamic standing with walker Stacey Ko, STUDENT - 07/02/2019 15:01 EDT Neurological/Sensory Overall Sensory Response : Intact Response to Pain : Intact Stacey Ko STUDENT - 07/02/2019 15:01 EDT Cognition Assessment, PT Orientation : Oriented x 4 Attention Assessment : Present Stacey Ko STUDENT - 07/02/2019 15:01 EDT Edu Topics Physical Therapy Education Grid Bed Mobility Training : Verbalizes understanding, Returns demonstration Gait Training : Verbalizes understanding, Returns demonstration Home Safety : Verbalizes understanding, Returns demonstration Role of Physical Therapy : Returns demonstration, Verbalizes understanding Safety : Verbalizes understanding, Returns demonstration Transfer Training : Verbalizes understanding, Returns demonstration Use of Assistive Device : Verbalizes understanding, Returns demonstration Stacey Ko, STUDENT - 07/02/2019 15:01 EDT Indication Assesessment, PT Physical Therapy Indicated : No Potential Barriers To Therapy : None evident Rehabilitation Potential : At prior level of function Stacey Ko, STUDENT - 07/02/2019 15:01 EDT Plan of Care, PT PT Tx Plan/Goals Established w Patient : Yes PT Frequency Rehab : Other: eval only PT Duration Rehab : Other: eval only Plan of Care Comment, PT : eval only, d/c today. Stacey Ko, STUDENT - 07/02/2019 15:01 EDT Treatment Note Subjective Comment : Pt very grateful and agreeable to therapy Patient's Response to Treatment : good Additional Objective Information : see eval Assessment : Pt s/p L4-5 discectomy with no impairments in functional mobility or gait. Pt verbalized and demonstrated understanding of post-op precautions and contraindications. Pt is safe to go home does not require skilled acute physical therapy prior to d/c. Plan for Treatment : d/c today Stacey Ko STUDENT - 07/02/2019 15:01 EDT Pain Assessment Pain Scaled Used : 0-10 Pain scale Pain Score Pre-Intervention : 9 Pain Score During-Intervention : 9 Pain Score Post-Intervention. : 9 Pain Comment : Incision site, RN aware Stacey Ko STUDENT - 07/02/2019 15:01 EDT Image 1 - Images currently included in the form version of this document have not been included in the text rendition version of the form. Anticipated Discharge Needs, OT/PT Anticipated Discharge to : Home, with family care Anticipated Home Equipment : Walker Recommend Continued Therapy at Discharge : No Walker : Walker, front wheel Walker Comment : Case management aware and is ordering Stacey Ko STUDENT - 07/02/2019 15:01 EDT [place] PT Charges Gait Training Each 15 Min : 1 PT Eval Low Complexity : 1 Stacey Ko STUDENT - 07/02/2019 15:01 EDT documented in this encounter Plan of Treatment Not on file documented as of this encounter Visit Diagnoses Not on filedocumented in this encounter
--- NOTE | 2025-04-20 13:25 | A.OFFVIS_ITS ---
HPI Data of Consult Patient: new to practice Consult date: 04/20/25 Requesting Physician: Radha Chua APRN Primary Care Provider: Jocelyne Soni APRN Reason for consult: Low back pain, bilateral hip pain History of present illness: Ms. Blandon is a 54 year old female who presents today as a new patient. She is a referral from Jocelyne Soni's office. Today she rates her pain 10 out of 10. She denies any recent falls or injuries. She does state that she has had chronic low back pain for years and even had a lumbar surgery back in 2019. Patient does state that in the past she has also had injections that did significantly help. Patient denies any recent injections. She states she has not had any since before her surgery. Patient does state that the pain has been progressively worsening over the last several months however the last week has been much more severe. Patient does state the pain is worse with prolonged sitting or standing. She states she frequently has to change positions due to the worsening pain and it does interfere with her ability perform activities of daily living such as cooking and cleaning. Patient is interested in any help we may be able to provide as the pain is unbearable. Patient has tried oral medications such as Tylenol along with muscle relaxers heat and ice and topicals with minimal improvement. Patient has not had any recent physical therapy due to not being able to take off work. She states that she was denied updated imaging because she had not completed this therapy. Her Jesus has been reviewed and is appropriate. Pain at rest (0-10 scale): 7 Has patient had previous pain injection?: No Conservative treatment options previously tried: Home exercise plan (Longer than 12 weeks) cc:: CC: Radha Chua APRN [facility] Disclaimer: The information contained in this section may have been updated after the patient was seen, as this information can be updated by other users. Medical History RUQ abdominal pain Thoracic back pain Viral illness Multiple lung nodules on CT Smoking greater than 30 pack years Dyspnea on exertion Hypertrophy of both inferior nasal turbinates Hoarseness Tobacco use Lumbar disc herniation Degenerative disc disease, lumbar Pelvic pain in female Tachycardia Tobacco dependence syndrome Low Back Pain Exposure to COVID-19 virus CAD (coronary artery disease) Encounter for pre-operative cardiovascular clearance Hypertension Hyperlipemia Surgical History No significant past surgical history Family History Other No significant family history Social History Smoking Status: Current every day smoker tobacco type: cigarettes packs per day: 1 alcohol intake: never substance use type: denies use current occupational status: employed Travel in the last 8 weeks?: None household members: spouse housing: house caffeine: Yes Review of Systems Review of Systems Review of systems:: pertinent systems reviewed and negative unless documented below Review of systems (narrative): Review of Systems: General: No recent weight changes, no fever, no sleep disturbances Respiratory: No cough, no shortness of air, no recurring pulmonary infections Cardiovascular/peripheral vascular: No chest pain, no palpitations, no edema, no shortness of breath Gastrointestinal: No new onset incontinence, normal bowel movements reported Genitourinary: No new onset incontinence Musculoskeletal: Low back pain, bilateral hip pain Psychiatric: [Normal mood/affect] Neurological: [Denies weakness in extremities], [denies balance issues] Meds Home Medications and Allergies Home Medications ?Medication ?Instructions ?Recorded ?Confirmed ?Type aspirin 81 mg tablet,delayed 81 mg PO DAILY #90 tabs 0 04/05/24 04/06/25 Rx release (Adult Low Dose Aspirin) buspirone 10 mg tablet 10 mg PO BID PRN 07/14/24 History nicotine 21 mg/24 hr daily 1 patch transdermal DAILY # 28 ea 08/16/24 04/06/25 Rx transdermal patch albuterol sulfate 90 mcg/actuation 2 inh inhalation QI D PRN shortness 09/02/24 04/06/25 Rx aerosol inhaler of breath or wheezing 90 day s #8.5 grams atorvastatin 20 mg tablet See Rx Instructions .Route 0 11/05/24 04/06/25 Rx .COMPLEX #90 tabs tizanidine 4 mg tablet 4 mg PO Q8H PRN muscle spast icity 03/17/25 04/06/25 Rx #30 tabs gabapentin 100 mg capsule 100 mg PO TID #90 caps 04/0604/06/25 Rx metoprolol succinate 25 mg 50 mg PO DAILY 04/06/25 Hi story tablet,extended release 24 hr famotidine 20 mg tablet See Rx Instructions .Route 0 04/18/25 Rx .COMPLEX #90 tabs methocarbamol 500 mg tablet 500 mg PO TID PRN muscle p ain #42 04/20/25 Rx tabs New Prescriptions to Start Prescriptions: methocarbamol Radha Chua Allergies Allergy/AdvReac Type Severity Reaction Status Date / Time lisinopril (LISINOPRIL) Allergy Mild COUGH Verified 04/06/25 15:28 Objective Narrative: Physical Exam: General: Alert and oriented x3, no acute distress, pleasant and cooperative Lungs: Respirations even and unlabored, symmetrical chest expansion Eyes: PERRL Musculoskeletal: Flexion and extension of lumbar [spine] somewhat guarded secondary to pain, [antalgic gait noted] point tenderness along bilateral SIs with positive bilateral Belia's, Rayray's, Gaenslen's, compression and distraction exam Neurological: Speech clear, no gross sensory deficit Additional findings Additional findings: FINDINGS: There is normal alignment with slight reversal of the lumbar lordosis. The spinal cord ends at the L1 level. T11-T12: Mild disc desiccation. T12-L1: Mild degenerative disc disease. L1-L2: Mild degenerative disc disease with small Schmorl's nodes along the endplates L2-L3: Degenerate disc disease with minimal bulging disc and type 1 endplate changes anteriorly. L3-L4: Degenerate disc disease with mild bulging disc. There is mild facet and ligamentum hypertrophic change. The disc is slightly eccentric toward the right with mild right lateral recess and foraminal narrowing. L4-5: Mild degenerative disc disease. There is a small left paracentral and foraminal disc herniation. The disc is slightly extruded superiorly. There is impingement upon the exiting L4 nerve root L5-S1: Unremarkable. Incidental note made of a 2.4 cm right renal cyst. IMPRESSION: 1. Small left paracentral and foraminal disc herniation with superior extrusion of the disc at L4-5 2. Multilevel degenerative changes as detailed above. Dictated by: Fab Aguirre MD 05/12/2019 11:21 Signed by: <Electronically signed by Fab Aguirre MD in [place]> 05/12/2019 11:21 Assessment and Plan *Assessment and plan (1) Degenerative disc disease, lumbar: Status: Chronic Category: Medical Code(s): M51.369 - Other intervertebral disc degeneration, lumbar region without mention of lumbar back pain or lower extremity pain (2) Bilateral sacroiliitis: Status: Acute Category: Medical Code(s): M46.1 - Sacroiliitis, not elsewhere classified Plan Patient is experiencing worsening pain along the low back and bilateral hips. They did have limited range of motion of the lumbar spine along with point tenderness along bilateral SI joints and a positive bilateral Belia's, Rayray's, Gaenslen's, compression and distraction exam. I did discuss with the patient that I do believe they would benefit from bilateral SI injections. Risk and benefits were discussed with the patient and they would like to proceed forward with this option. Patient has tried and failed conservative therapy. Patient has been actively doing conservative treatment including oral medication, heat and ice, topicals, at home exercising and stretching for longer than 12 weeks. I did print off physician guided exercises for her low back and bilateral hips during today's visit for her to work on at home. Patient is having to adjust their activity based off the increased pain resulting in activity modification. I do believe the patient would benefit from SI injection. If the patient does get significant relief following these injections we will see in the future if they would benefit from a second set with the possibility of SI fusion at a later date. This will be a diagnostic injection with less than 1 mL solution to be injected. I will order the patient compounded cream and send in a 2-week p rescription of methocarbamol 500 mg 3 times daily as needed. I did also order x-ray imaging of her lumbar spine and sacroiliac joints today. We will plan on advanced imaging in future. Patient will be scheduled for bilateral SI injections under fluoroscopy. Patient has been instructed to contact the clinic with any concerns before the next appointment. Dr. Simpson has reviewed this note and agrees with this plan of care. This note was dictated using voice recognition software and make contain errors or omissions. All injections are used with Lidocaine or Bupivacaine and dexamethasone unless diagnostic in which no steroids were injected.
--- NOTE | 2025-04-20 13:56 | XR_ITS ---
FINAL REPORT CLINICAL HISTORY: Low back pain, bilateral hip pain FINDINGS: SACROILIAC JOINTS Three views were obtained. There is no fracture or dislocation. There is mild degenerative disease along the inferior aspect of the sacroiliac joints. There is no evidence of erosion or ankylosis. No soft tissue abnormality is identified. IMPRESSION: No acute process. Reviewed, Interpreted and Dictated by Arlyn Mills MD Transcribed by Mary Sanchez Authenticated and [facility]
--- NOTE | 2025-04-20 13:56 | XR_ITS ---
FINAL REPORT CLINICAL HISTORY: Low back pain, bilateral hip pain FINDINGS: LUMBAR SPINE Three views were obtained. There is no acute fracture. Multilevel degenerative disc disease, most pronounced at L3-4 and L4-5. There is no malalignment. IMPRESSION: Multilevel degenerative disc disease. Reviewed, Interpreted and Dictated by Arlyn Mills MD Transcribed by Mary Sanchez Authenticated and [facility]
[2025-04-20 14:29] VITALS: BP 144/113; PULSE 99; RESP 18; O2SAT 98; BMI 23.9
== END 2025-04-20 23:59 | disposition home or self-care (01) ==
PROVIDERS: PCP Nurse Practitioner Family; Visit Provider Nurse Practitioner Family
DX: M51.360 Other intervertebral disc degeneration, lumbar region with discogenic back pain only (principal); M46.1 Sacroiliitis, not elsewhere classified
CPT/HCPCS: 72100; 72202; 99202; G0463

== ENCOUNTER 2025-05-04 05:35 | Observation (INO) | payer BC, SELFPAY ==
[2025-05-04] VITALS (18 sets, daily range): BP systolic 98–177; BP diastolic 55–110; PULSE 50–112; RESP 12–21; TEMP 36.5–36.6; O2SAT 94–100; BMI 23.1; BMI 22.1
--- NOTE | 2025-05-04 05:32 | ECG_ITS ---
APPROVED REPORT Exam: Resting ECG HR:113 bpm ECG Measurements Heart Rate 113 AXES GA 120 P 78 QRSd 82 QRS 91 QT 306 T 65 QTc 373 Conclusion SINUS TACHYCARDIA BORDERLINE RIGHT AXIS DEVIATION [QRS AXIS > 90] MODERATE ST DEPRESSION [0.05+ mV ST DEPRESSION] ABNORMAL ECG UNCONFIRMED REPORT Electronically signed by : HUAN DE LA CRUZ, 05/06/2025 00:33:49
--- NOTE | 2025-05-04 05:41 | XR_ITS ---
PROCEDURE INFORMATION: Exam: XR Chest Exam date and time: 05/04/2025 6:00 AM Age: 54 years old Clinical indication: Pain; Chest pressure; Additional info: Cp TECHNIQUE: Imaging protocol: Radiologic exam of the chest. Views: 1 view. COMPARISON: CT LUNG SCREENING 08/04/2024 3:01 PM FINDINGS: Tubes, catheters and devices: Overlying EKG leads and external artifacts. Lungs: Lungs are well aerated. No consolidation. Pleural spaces: No significant pleural effusions. No pneumothorax. Heart/Mediastinum: Cardiac size is normal and mediastinal contour stable. Bones/joints: No acute bony abnormalities. IMPRESSION: No acute findings.
--- NOTE | 2025-05-04 05:41 | HMH.EDGENADL ---
Discharge Plan Disposition Patient Disposition: Admitted Clinical Impressions Clinical Impression: Acute non-ST elevation myocardial infarction (NSTEMI) Discharge ED Provider: Maciej Tran General Adult HPI General Chief complaint: Chest Pain Stated complaint: Chest pain Time Seen by Provider: 05/04/25 05:41 History of Present Illness HPI narrative: 54-year-old female with history of disease or stent, history of smoking, hypertension, presents for chest pain. She reports that she has been having intermittent arm pain over the last few days and then tonight she had bilateral arm pain that became chest pain. She reports chest pain and tightness and mild shortness of breath. She denies any nausea or vomiting or abdominal pain. Related Data Home Medications ?Medication ?Instructions ?Recorded ?Confirmed buspirone 10 mg tablet 10 mg PO BID PRN MOOD 07/14/24 05/04/25 metoprolol succinate 25 mg 50 mg PO DAILY 04/06/25 05/04/25 tablet,extended release 24 hr Previous Rx's ?Medication ?Instructions ?Recorded aspirin 81 mg tablet,delayed 81 mg PO DAILY #90 tabs 04/05/24 release (Adult Low Dose Aspirin) albuterol sulfate 90 mcg/actuation 2 inh inhalation QID PRN shortness 09/02/24 aerosol inhaler of breath or wheezing 90 days #8.5 grams atorvastatin 20 mg tablet See Rx Instructions .Route 11/05/24 .COMPLEX #90 tabs gabapentin 100 mg capsule 100 mg PO TID #90 caps 04/06/25 famotidine 20 mg tablet See Rx Instructions .Route 04/18/25 .COMPLEX #90 tabs methocarbamol 500 mg tablet 500 mg PO TID PRN muscle pain #42 04/20/25 tabs Allergies Allergy/AdvReac Type Severity Reaction Status Date / Time lisinopril (LISINOPRIL) Allergy Mild COUGH Verified 04/06/25 15:28 [facility] Disclaimer: The information contained in this section may have been updated after the patient was seen, as this information can be updated by other users. Medical History RUQ abdominal pain Thoracic back pain Viral illness Multiple lung nodules on CT Smoking greater than 30 pack years Dyspnea on exertion Hypertrophy of both inferior nasal turbinates Hoarseness Tobacco use Lumbar disc herniation Degenerative disc disease, lumbar Pelvic pain in female Tachycardia Tobacco dependence syndrome Low Back Pain Exposure to COVID-19 virus CAD (coronary artery disease) Encounter for pre-operative cardiovascular clearance Hypertension Hyperlipemia Surgical History No significant past surgical history Family History Other No significant family history Social History (Updated 04/20/25 @ 14:33 by Fanny Spence RN) Smoking Status: Current every day smoker tobacco type: cigarettes packs per day: 1 alcohol intake: never substance use type: denies use current occupational status: employed Travel in the last 8 weeks?: None household members: spouse housing: house caffeine: Yes Other Medical History Have you received the Flu Vaccine for this season: No Have you received the Pneumonia Vaccine: No ROS Obtained: Yes All systems reviewed & no additional complaints except as documented Physical Exam General General appearance: alert and in no apparent distress Head Head exam: atraumatic and normocephalic Eye Eye exam: Present normal appearance, PERRL and EOMI ENT ENT exam: Present normal oropharynx and normal external ear exam Neck Neck exam: Present normal inspection and full ROM Chest Chest inspection: Present normal inspection and symmetric chest wall rise; Absent tenderness Respiratory Respiratory exam: Present normal lung sounds bilaterally; Absent respiratory distress Cardiovascular Cardiovascular exam: Present regular rate and normal rhythm Abdominal Exam Abdominal exam: Present soft; Absent distention, tenderness or guarding Extremities Exam Extremities exam: Present normal inspection; Absent edema or joint swelling Back Exam Back exam: Present normal inspection; Absent tenderness Neurological Exam Neurological exam: Present alert and oriented X3; Absent motor sensory deficit Psychiatric Psychiatric exam: Present normal affect and normal mood Skin Skin exam: Present warm, dry and normal color Lymphatic Lymphatic Findings: no adenopathy Medical Decision Making Medical Records Medical records reviewed: Yes I reviewed the patient's medical records. Screening: Per USPSTF and CDC recommendations, given the prevalence of disease in our region, it is our hospital?s policy to screen for HIV and viral Hepatitis for all patients aged 18 and over and those with ongoing risk factors. Jesus Inquiry Pt receiving controlled substance: No Jesus was queried for this patient: No Vital Signs: 05/04/25 05:41 05/04/25 05:51 05/04/25 06:00 Temperature 97.7 F Temperature Source Oral Pulse Rate 87 92 H Pulse Rate [Left] 112 H Respiratory Rate 18 21 12 Blood Pressure 157/105 H 147/96 H Blood Pressure [Right Arm] 177/110 H Blood Pressure Mean 122 113 Blood Pressure Mean [Right Arm] 132 Blood Pressure Source [Right Arm] Automatic Cuff Blood Pressure Position [Right Arm] Supine 02 Sat by Pulse Oximetry 100 99 98 Oxygen Delivery Method Room Air Lab Data Lab results reviewed: Yes I reviewed the patient's lab results. Lab Results 05/04/25 05:36: WBC 8.4, RBC 4.90, Hgb 15.6, Hct 46.9, MCV 95.7, MCH 31.8 H, MCHC 33.3, RDW 13.0, Plt Count 185, MPV 10.5 H, Neut % (Auto) 47.6, Lymph % (Auto) 38.8, [place] % (Auto) 9.2, Eos % (Auto) 3.1, Baso % (Auto) 0.8, Neut # (Auto) 4.0, Lymph # (Auto) 3.3, [place] # (Auto) 0.8, Eos # (Auto) 0.3, Baso # (Auto) 0.1, D-Dimer 0.66 H, Sodium 141, Potassium 4.2, Chloride 107, Carbon Dioxide 27, Anion Gap 11.2, BUN 18 H, Creatinine 0.60, Estimated Creat Clear 111, Estimated GFR 103, Est GFR ( Amer) 125, Glucose 108 H, Calcium 10.0, Total Bilirubin 0.6, AST 41 H, ALT 26, Alkaline Phosphatase 68, Troponin I 0.04 H, Total Protein 8.0, Albumin 4.9, Globulin 3.1, Albumin/Globulin Ratio 1.6 05/04/25 05:36 05/04/25 05:36 Orders (Tests/Meds): ED MEDICATIONS Generic Name Dose Route Start Last Admin Trade Name Freq PRN Reason Stop Dose Admin Nitroglycerin 0.4 mg 05/04/25 05:41 05/04/25 05:53 Nitroglycerin 0.4mg Sl Tablet SL 06/03/25 05:40 0.4 mg Q5MINP PRN Administration Chest Pain Discontinued Medications Generic Name Dose Route Start Last Admin Trade Name Freq PRN Reason Stop Dose Admin Acetaminophen 1,000 mg 05/04/25 05:41 05/04/25 05:51 Acetaminophen 500mg Tab PO 05/04/25 05:42 1,000 mg ONCE ONE Administration Aspirin 324 mg 05/04/25 05:41 05/04/25 05:51 Aspirin 81mg Chewable Tablet PO 05/04/25 05:42 324 mg ONCE ONE Administration Belladonna Alkaloids 60 ml 05/04/25 05:41 05/04/25 05:51 Belladonna Alkaloids 60 Ml Ml PO 05/04/25 05:42 60 ml ONCE ONE Administration ORDERS Category Date Time Status CXR --portable [XR chest portable] Stat Exams 05/04/25 05:41 Taken CBC w/Auto Diff [Complete Blood Count Auto Diff] Stat Lab 05/04/25 05:36 Completed CMP [Comprehensive Metabolic Panel] Stat Lab 05/04/25 05:36 Completed D-Dimer Stat Lab 05/04/25 05:36 Completed Troponin I Q3H Lab 05/04/25 05:36 Completed Troponin I Q3H Lab 05/04/25 08:45 Ordered 12-lead EKG Request [ECG Request] Stat Y 05/04/25 06:25 Ordered ECG Data Tracing #1: I reviewed this ECG and interpreted as documented below: Sinus tachycardia, rate of 113, ST depressions in the precordial and inferior leads ECG initial impression date: 05/04/25 ECG initial impression time: 05:32 Tracing #2: I reviewed this ECG and interpreted as documented below: Sinus rhythm, previously noted ST depressions have completely resolved ECG initial impression date: 05/04/25 ECG initial impression time: 06:22 HEART Score History (anamnesis): Highly suspicious ECG: Significant ST-deviation Age: 45-65 years Risk factors: Atherosclerosis history Troponin: 1-3x normal limit HEART Score: 8 Medical Decision Narrative: 54-year-old female with history of coronary artery disease, hypertension hyperlipidemia presents for chest pain. History was obtained via interactive discussion with patient. On arrival, patient is [afebrile, hemodynamically stable, satting appropriately, alert, oriented x4, GCS 15], moving all extremities spontaneously. Full physical exam performed and significant for clear lungs bilaterally, benign abdominal exam. Initial EKG is concerning for diffuse ST depressions. Subtle ST elevation not meeting criteria noted in V1. Repeat EKG after interventions shows complete normalization of ST segment changes. Differential includes but is not limited to ACS, PE, aortic pathology, esophageal pathology, GERD, musculoskeletal chest pain. Patient was given aspirin, nitro, Tylenol, GI cocktail for symptomatic management and correction of underlying abnormalities. Workup initiated including CBC CMP troponin D-dimer EKG chest x-ray. On re-evaluation, patient [remains afebrile, HD stable.] Laboratory workup independently interpreted by me and significant for elevated troponin 0.04, negative D-dimer by years criteria, no significant leukocytosis, normal renal function.. Imaging independently interpreted by me and significant for clear lungs bilaterally without focal opacity. See radiology read for full review of final results. Given patient history, exam and workup, patient's presentation most likely represents NSTEMI. Interactive discussion was had with hospitalist on-call for admission. Procedures Risk/Benefits of Procedure(s) Were Explained: Yes Critical Care Critical Care Time Critical Care Time: Yes Attestation: On 05/04/25, the high probability of a clinically significant, sudden or life threatening deterioration of the following system(s) required my full and direct attention, intervention and personal management. The time I documented below is in addition to time spent performing reported procedures but includes the following listed in this critical care notation. Total Time Total Critical Care Time: 40
--- OUTSIDE RECORDS SUMMARY | 2025-05-04 05:44 | XMS_ITS | Encounter Summary ---
Author Organization [employer] ([place], [place], [place], [place]) Address [address] [place] [address] Care Team Providers Care Bucket Wash Operator Name Role Phone Unavailable Primary Care Provider Unavailabl e Encounter Details Date Type Department Care Team (Late st Contact Info) Description 07/02/2019 Transcribed Document [facility] [place] [facility] [place] [address] ProviderAlly MD [facility] [place] [address] Social History Tobacco Use Types [...] 07/02/2019 15:18 EDT by LEANDRO CASTILLO Care Management-Professor Of Philosophy Final Discharge Planning Discharge Arrangements : Patient Post-Acute Information Patient Name: MARY BLANDON Gender: Female : [birth year] Age: 48 Years No Post-Acute Placement(s) Listed No Post-Acute Service(s) Listed No [place] Referral(s) Listed Patient Offered Choice/Affiliations Explained : Yes Designation of Choice Signed : Yes Discharge To Care Management : Home/Residential/Intermediate or Self Care -01 LEANDRO CASTILLO Care Management-Professor Of Philosophy - 07/02/2019 15:18 EDT documented in this encounter Plan of Treatment Not on file documented as of this encounter Visit Diagnoses Not on filedocumented in this encounter
--- OUTSIDE RECORDS SUMMARY | 2025-05-04 05:44 | XMS_ITS | Encounter Summary ---
Author Organization [employer] ([place], [place], [place], [place]) Address [address] [place] [address] Care Team Providers Care Supervisor Particleboard Name Role Phone Unavailable Primary Care Provider Unavailabl e Encounter Details Date Type Department Care Team (Late st Contact Info) Description 07/02/2019 Transcribed Document [facility] [place] Family Medicine [address] [place] [address] ProviderAlly MD [facility] [place] [address] Social History Tobacco Use Types [...]
--- OUTSIDE RECORDS SUMMARY | 2025-05-04 05:44 | XMS_ITS | Clinical Summary ---
Author Organization [employer] ([place], [place], [place], [place]) Address [address] [place] [address] Care Team Providers Care State Historical Society Director Name Role Phone Unavailable Primary Care Provider [...]
--- OUTSIDE RECORDS SUMMARY | 2025-05-04 05:44 | XMS_ITS | Encounter Summary ---
Author Organization [employer] ([place], [place], [place], [place]) Address [address] [place] [address] Care Team Providers Care Inspector Eyeglass Frames Name Role Phone Unavailable Primary Care Provider Unavailabl e Encounter Details Date Type Department Care Team (Late st Contact Info) Description 07/02/2019 Transcribed Document [facility] [place] [facility] [address] ProviderAlly MD [facility] [address] Social History Tobacco Use Types [...] GRAMAJO /Sex: 1970 Female Med Rec #: [id number] Physician: PADMINI VALLE MD-ORT Financial #: [id number] Pt. Type: O Room/Bed: [facility]/ Admit/Disch: 07/02/19 08:52:00 - Institution: [facility] [place] [place] IntraOp Case Attendance Entry 1 Entry 2 Entry 3 Case Attendee PADMINI VALLE MD-ORT LONGSWORTH, GARY, RN CROW, HOLLY, OR TECH Role Performed Surgeon/Proceduralist, Manager Bank, First Scrub, First First Time In 07/02/19 [...] 5 Entry 6 Case Attendee NEEMA CARSON, PATIENT TRANSITION SPECIALIST IRMA TRIPP PA Dawes, Blanca Flores, Gymnastic Coach Role Performed PATIENT TRANSITION SPECIALIST/Nurse Mitigation Supervisor Physician ophthalmic assistant Indigo Vat Tender Cloth Time In 07/02/19 11:26:00 07/02/19 11:26:00 07/02/19 11:26:00 Time Out 07/02/19 12:23:00 07/02/19 12:23:00 07/02/19 12:23:00 Procedure Lumbar Laminectomy Lumbar Laminectomy Lumbar Laminectomy Discectomy 1 Level Discectomy 1 Level Discectomy 1 Level Other Attendee Superficial Wound Closed By: Last Modified By: ENOCH POLK, ENOCH VILLEGAS, ENOCH VILLEGAS, HA 07/02/19 12:22:38 07/02/19 12:22:38 07/02/19 12:22:38 Entry 7 Case Attendee OTHER, ATTENDEE #1 Role Performed Case Fitter, Ancillary Time In 07/02/19 11:26:00 Time Out 07/02/19 12:23:00 Procedure Lumbar Laminectomy Discectomy 1 Level Other Attendee KEITH RIVERA Superficial Wound Closed By: Last Modified By: ENOCH POLK RN 07/02/19 12:22:38 [facility] IntraOp Case Attendance Audit 07/02/19 12:22:38 Typesetter Perforator Operator: LONGGA Modifier: LONGGA 1 <*> Procedure Lumbar [...] Lumbar Laminectomy Discectomy 1 Level 07/02/19 12:11:02 Typesetter Perforator Operator: LONGGA Modifier: LONGGA 1 <+> Time Out 1 <*> Procedure Lumbar Laminectomy Discectomy 1 Level 07/02/19 11:54:58 Typesetter Perforator Operator: LONGGA Modifier: LONGGA <+> 1 Procedure 2 <*> Procedure Lumbar Laminectomy Discectomy 1 Level 3 <*> Procedure Lumbar Laminectomy Discectomy 1 Level 4 <*> Procedure Lumbar Laminectomy Discectomy 1 Level 5 <*> Procedure Lumbar Laminectomy Discectomy 1 Level 6 <*> Procedure Lumbar Laminectomy Discectomy 1 Level 7 <*> Procedure Lumbar Laminectomy Discectomy 1 Level 07/02/19 11:44:51 Typesetter Perforator Operator: LONGGA Modifier: LONGGA <+> 1 Time In [...] [facility] IntraOp Case Times Audit 07/02/19 12:22:36 Typesetter Perforator Operator: LONGGA Modifier: LONGGA <+> 1 Out Room Time <+> 1 Stop Time 07/02/19 12:11:38 Typesetter Perforator Operator: LONGGA Modifier: LONGGA <+> 1 Stop Time 07/02/19 11:54:53 Typesetter Perforator Operator: LONGGA Modifier: LONGGA <+> 1 Start Time [...] IntraOp Fire Risk Assessment Audit 07/02/19 11:56:40 Typesetter Perforator Operator: LONGGA Modifier: LONGGA <+> 1 Fire Risk Assessment Verified Date/Time <+> 1 High Risk Protocol Implemented [facility] IntraOp General Case Construction Quality Control Manager 1 Case Information OR OR 01 [facility] Case Level 1 Room Verified Yes Wound Class I - Clean Specialty SN Neurosurgery Anesthesia Type General ASA Class 3 Diagnosis Preop Diagnosis SEVER LEFT SIDED PAIN L4-5 Postop Same As Preop No Postop Diagnosis DICTATED BY Cuca Last Modified By: ENOCH POLK RN 07/02/19 12:08:16 [facility] IntraOp General Case Data Audit 07/02/19 12:08:16 Typesetter Perforator Operator: LONGGA Modifier: LONGGA <+> 1 Postop Same As Preop <+> 1 Preop Diagnosis <+> 1 Postop Diagnosis 07/02/19 12:05:04 Typesetter Perforator Operator: LONGGA Modifier: LONGGA <+> 1 ASA Class [...] 1 Medication/Irrigant PB irrigation 1000ml solution - [id number] Route of IRRIGATION Administration Dose Volume QS [...] [facility] IntraOp Surgical Procedures Audit 07/02/19 12:13:01 Typesetter Perforator Operator: LONGGA Modifier: LONGGA <+> 1 Stop 07/02/19 12:07:05 Typesetter Perforator Operator: LONGGA Modifier: LONGGA 1 <*> Procedure Lumbar [...] Type Fluoroscopy Fluoroscopy Type C-Arm Site BACK Water Resource Manager Name Blanca Cartagena, Gymnastic Coach Protective Devices Yes Used Last Modified By: [...]
--- OUTSIDE RECORDS SUMMARY | 2025-05-04 05:44 | XMS_ITS | Encounter Summary ---
Author Organization [employer] ([place], [place], [place], [place]) Address [address] [place] [address] Care Team Providers Care Nurse Practitioner Per Diem Name Role Phone Unavailable Primary Care Provider Unavailabl e Encounter Details Date Type Department Care Team (Late st Contact Info) Description 07/02/2019 Transcribed Document [facility] [place] Family Medicine [address] [place] [address] ProviderAlly MD [facility] [place] [address] Social History Tobacco Use Types [...]
--- OUTSIDE RECORDS SUMMARY | 2025-05-04 05:44 | XMS_ITS | Encounter Summary ---
Author Organization [employer] ([place], [place], [place], [place]) Address [address] [place] [address] Care Team Providers Care Poultry Cleaner Name Role Phone Unavailable Primary Care Provider Unavailabl e Encounter Details Date Type Department Care Team (Late st Contact Info) Description 07/02/2019 Transcribed Document [facility] [place] Family Medicine [address] [place] [address] ProviderAlly MD [facility] [place] [address] Social History Tobacco Use Types [...] LAUREEN HOGAN, RN - 07/02/2019 9:46 EDT Electronically signed by [facility] Conversion V Groove Cutter Cerner at 01/07/2023 8:04 PM CDT documented in this encounter Plan of Treatment Not on file documented as of this encounter Visit Diagnoses Not on filedocumented in this encounter
--- OUTSIDE RECORDS SUMMARY | 2025-05-04 05:44 | XMS_ITS | Encounter Summary ---
Author Organization [employer] ([place], [place], [place], [place]) Address [address] [place] [address] Care Team Providers Care Collections Director Name Role Phone Unavailable Primary Care Provider Unavailabl e Encounter Details Date Type Department Care Team (Late st Contact Info) Description 07/02/2019 Transcribed Document [facility] [place] [facility] [place] [address] ProviderAlly MD [address] [place] [address] Social History Tobacco Use Types Packs/Day [...] approach, wiltze approach SURGEON: Jhony Valle MD. RN POST PARTUM: Ariel Polanco PA-C The salon shampoo assistant, are to assistance with transferring of [...] space L1-2, possibly the space, L4-5. MRI sohub-ltah-pdedo lateral recess stenosis, L4-5, with a disc [...] above. PATIENT QUALITY REPORTING SERVICES Timeout Antibiotics [id number] cephalosporin-not acceptable-patient has allergy. Vancomycin used Antibiotics [...]
--- OUTSIDE RECORDS SUMMARY | 2025-05-04 05:44 | XMS_ITS | Referral Summary ---
Author Organization [employer] ([place], [place], [place], [place]) Address [address] [place] [address] Care Team Providers Care Business Intelligence Director Name Role Phone Unavailable Primary Care [...]
--- OUTSIDE RECORDS SUMMARY | 2025-05-04 05:44 | XMS_ITS | Encounter Summary ---
Author Organization [employer] ([place], [place], [place], [place]) Address [address] [place] [address] Care Team Providers Care Product Demonstrator Name Role Phone Unavailable Primary Care Provider Unavailabl e Encounter Details Date Type Department Care Team (Late st Contact Info) Description 07/02/2019 Transcribed Document [facility] [place] [facility] [place] [address] ProviderAlly MD [address] [place] [address] Social History Tobacco Use Types Packs/Day [...] : Supervision or set-up Toileting Device : [id number]-fqt commode Toilet Transfer Assist Level : Supervision or set-up Toilet Transfer Device : Belt, gait, Walker, rolling, Ycfjq-rg-evn commode Self Care/Home Management Comment, OT : [...]
--- OUTSIDE RECORDS SUMMARY | 2025-05-04 05:44 | XMS_ITS | Encounter Summary ---
Author Organization [employer] ([place], [place], [place], [place]) Address [address] [place] [address] Care Team Providers Care Electric Shaver Mechanic Name Role Phone Unavailable Primary Care Provider Unavailabl e Encounter Details Date Type Department Care Team (Late st Contact Info) Description 07/02/2019 Transcribed Document [facility] [place] Family Medicine [address] [place] [address] ProviderAlly MD [facility] [place] [address] Social History Tobacco Use Types [...] Jodi Henning RN - 07/02/2019 13:53 EDT Electronically signed by Tres [employer] Conversion Drafter Heating And Ventilating Cerner at 01/07/2023 8:11 PM CDT documented in this encounter Plan of Treatment Not on file documented as of this encounter Visit Diagnoses Not on filedocumented in this encounter
--- OUTSIDE RECORDS SUMMARY | 2025-05-04 05:44 | XMS_ITS | Encounter Summary ---
Author Organization [employer] ([place], [place], [place], [place]) Address [address] [place] [address] Care Team Providers Care Bead Wire Taper Name Role Phone Unavailable Primary Care Provider Unavailabl e Encounter Details Date Type Department Care Team (Late st Contact Info) Description 07/02/2019 Transcribed Document [facility] [place] [facility] [address] ProviderAlly MD [address] [place] [address] Social History Tobacco Use Types Packs/Day [...] Potential : At prior level of function Staecy Ko, STUDENT - 07/02/2019 15:01 EDT Plan [...] Stacey Ko STUDENT - 07/02/2019 15:01 EDT [place] PT Charges Gait Training Each 15 Min : 1 PT Eval Low Complexity : 1 Stacey Ko STUDENT - 07/02/2019 15:01 EDT documented in this encounter Plan of Treatment Not on file documented as of this encounter Visit Diagnoses Not on filedocumented in this encounter
--- OUTSIDE RECORDS SUMMARY | 2025-05-04 05:44 | XMS_ITS | Encounter Summary ---
Author Organization [employer] ([place], [place], [place], [place]) Address [address] [place] [address] Care Team Providers Care Voicer Name Role Phone Unavailable Primary Care Provider Unavailabl e Encounter Details Date Type Department Care Team (Late st Contact Info) Description 07/02/2019 Transcribed Document [facility] [place] [facility] [place] [address] ProviderAlly MD [facility] [place] [address] Social History Tobacco Use Types [...] Source : Stated Height Entry Format : [place] Height, Feet : 5 ft(Converted to: 152 cm, 60 Inch) Height, Inches : 7 Inch(Converted to: 0 ft 7 Inch, 17.78 cm) Clinical Height : 170.18 cm Weight Source : Standing scale Weight Entry Format : [place] Clinical Dosing Weight : 61.82 kg Weight, Pounds : 136 lb Body Surface Area (BSA) : 1.72 m2 Body Mass Index : 21.3 kg/m2 Whick Body Weight : 61 kg Carmen Meyer [...] Brennan Emergency Contact #1 Phone Number : [phone] Emergency Contact #1 Relationship : Emergency Contact #2 : . Emergency Contact #2 Phone Number : . Emergency Contact #2 Relationship : . Information Obtained From : Patient Primary Language : Italian Preferred Communication Mode : Verbal Communication Barrier [...] Level : 46 or > High Risk [place] Fall Interventions : Adequate lighting, Bed in [...] the text rendition version of the form. Otho Coma Oscar Best Motor Response : Obey commands Otho Best Verbal Response : Oriented Otho Eye Opening Response : Spontaneous Oscar Coma Score : 15 Carmen Meyer RN - 07/02/2019 13:43 EDT Electronically signed by Tres Machuca Conversion President Of [employer] [place] Cerner at 01/07/2023 8:22 PM CDT documented in this encounter Plan of Treatment Not on file documented as of this encounter Visit Diagnoses Not on filedocumented in this encounter
--- OUTSIDE RECORDS SUMMARY | 2025-05-04 05:44 | XMS_ITS | Encounter Summary ---
Author Organization [employer] ([place], [place], [place], [place]) Address [address] [place] [address] Care Team Providers Care Level Vial Marker Name Role Phone Unavailable Primary Care Provider Unavailabl e Encounter Details Date Type Department Care Team (Late st Contact Info) Description 07/02/2019 Transcribed Document [facility] [place] [facility] [place] [address] ProviderAlly MD [facility] [place] [address] Social History Tobacco Use Types [...] BLANDON /Sex: 1970 Female Med Rec #: [id number] Physician: PADMINI VALLE MD-ORT Financial #: [id number] Pt. Type: O Room/Bed: Admit/Disch: 07/02/19 08:52:00 - Institution: [facility] [place] PreOp Case Times Entry 1 In Preop 07/02/19 09:00:00 Ready for Holding n/a Room Patient Ready for 07/02/19 09:45:00 Surgery Patient Out of Preop 07/02/19 11:25:00 Patient Out of n/a Holding Room Last Modified By: PAULINA MENEZES 07/02/19 11:26:31 SJE PreOp Case Times Audit 07/02/19 11:26:31 Job Coach: [email or web address] Modifier: [email or web address] <+> 1 Patient Out of Preop 07/02/19 09:45:30 Job Coach: [email or web address] Modifier: [email or web address] <+> 1 Patient Ready for Surgery Finalized By: PAULINA MENEZES Document Signatures Signed By: PAULINA MENEZES 07/02/19 11:26 Electronically signed by Sven [facility] Conversion Environmental Health Safety Manager Cerner at 01/07/2023 8:23 PM CDT documented in this encounter Plan of Treatment Not on file documented as of this encounter Visit Diagnoses Not on filedocumented in this encounter
--- OUTSIDE RECORDS SUMMARY | 2025-05-04 05:44 | XMS_ITS | Encounter Summary ---
Author Organization [employer] ([place], [place], [place], [place]) Address [address] [place] [address] Care Team Providers Care Substance Abuse Therapist Name Role Phone Unavailable Primary Care Provider Unavailabl e Encounter Details Date Type Department Care Team (Late st Contact Info) Description 07/02/2019 Transcribed Document [facility] [place] [facility] [place] [address] ProviderAlly MD [facility] [place] [address] Social History Tobacco Use Types [...]
--- OUTSIDE RECORDS SUMMARY | 2025-05-04 05:44 | XMS_ITS | Encounter Summary ---
Author Organization [employer] ([place], [place], [place], [place]) Address [address] [place] [address] Care Team Providers Care Senior Tech Manufacturing Engineering Name Role Phone Unavailable Primary Care Provider Unavailabl e Encounter Details Date Type Department Care Team (Late st Contact Info) Description 07/02/2019 Transcribed Document [facility] [place] [facility] [place] [address] ProviderAlly MD [facility] [place] [address] Social History Tobacco Use Types [...] Source : Stated Height Entry Format : [place] Height, Feet : 5 ft(Converted to: 152 cm, 60 Inch) Height, Inches : 7 Inch(Converted to: 0 ft 7 Inch, 17.78 cm) Clinical Height : 170.18 cm Weight Source : Standing scale Weight Entry Format : [place] Clinical Dosing Weight : 61.82 kg Weight, Pounds : 136 lb Body Surface Area (BSA) : 1.72 m2 Body Mass Index : 21.3 kg/m2 [place] Body Weight : 61 kg LAUREEN HOGAN [...] Brennan Emergency Contact #1 Phone Number : [phone] Emergency Contact #1 Relationship : Emergency Contact #2 : . Emergency Contact #2 Phone Number : . Emergency Contact #2 Relationship : . Information Obtained From : Patient Primary Language : Lao Preferred Communication Mode : Verbal Communication Barrier [...] Scale Risk Level : 0-24 Low Risk [place] Fall Interventions : Bed in low position, [...]
--- OUTSIDE RECORDS SUMMARY | 2025-05-04 05:44 | XMS_ITS | Encounter Summary ---
Author Organization [employer] ([place], [place], [place], [place]) Address [address] [place] [address] Care Team Providers Care Arson Investigator Name Role Phone Unavailable Primary Care Provider Unavailabl e Encounter Details Date Type Department Care Team (Late st Contact Info) Description 07/02/2019 Transcribed Document [facility] [place] [facility] [place] [address] ProviderAlly MD [facility] [place] [address] Social History Tobacco Use Types [...] 07/02/2019 15:17 EDT by LEANDRO CASTILLO Care Management-Digital Data Analyst Initial Assessment I Previously Documented Living Environment : No qualifying data available. Living Situation : Home Patient Lives With : Spouse Emergency Contact #1 : Brennan Emergency Contact #1 Phone Number : [phone] Emergency Contact #1 Relationship : Emergency Contact #2 : . Emergency Contact #2 Phone Number : . Emergency Contact #2 Relationship : . LEANDRO CASTILLO Care Management-Digital Data Analyst - 07/02/2019 15:17 EDT Initial Assessment II Sensory and Motor Deficits : Other: lumbar fusion Current Home Treatments and Equipment : None LEANDRO CASTILLO Care Management-Digital Data Analyst - 07/02/2019 15:17 EDT Discharge Needs I Anticipated Discharge Date : 07/02/2019 EDT Anticipated Discharge To, CM : Home with home health Current Home Treatment/Equipment : Current Home Treatment/Equipment No qualifying data available. Post Acute/Home Treatments : Walker Documentation Status Complete : Yes LEANDRO CASTILLO Care Management-Digital Data Analyst - 07/02/2019 15:17 EDT Discharge Needs II Professional Skilled Services : Professional Skilled Services No qualifying data available. Discharge Options Discussed with Patient : DME LEANDRO CASTILLO Care Management-Digital Data Analyst - 07/02/2019 15:17 EDT Electronically signed by Tres [employer] Conversion Cigar Tobacco Processing Supervisor Cerner at 01/07/2023 8:05 PM CDT documented in this encounter Plan of Treatment Not on file documented as of this encounter Visit Diagnoses Not on filedocumented in this encounter
--- OUTSIDE RECORDS SUMMARY | 2025-05-04 05:44 | XMS_ITS | Encounter Summary ---
Author Organization [employer] ([place], [place], [place], [place]) Address [address] [place] [address] Care Team Providers Care Splunk Developer Name Role Phone Unavailable Primary Care Provider Unavailabl e Encounter Details Date Type Department Care Team (Late st Contact Info) Description 07/02/2019 Transcribed Document [facility] [place] [facility] [place] [address] ProviderAlly MD [place] [address] Social History Tobacco Use Types [...] Ally ProviderMD - 07/02/2019 4:51 [place] [address] MARY GRAMAJO :1970 Visit Time:07/02/2019 Your Visit [...] as written o BGO Intake Sheet Activity: [place] dressing. Do not remove. May shower with [...] EDT Comments Appointment has been made Where: [address] [place] [address]- Medications What How Much When Instructions Next [...] Barley. Bulgur wheat. Millet. Bran muffins. Popcorn. [place] wafer crackers. ??? Vegetables Sweet potatoes. Spinach. Kale. Artichokes. Cabbage. Broccoli. Green peas. Carrots. Squash. ??? Fruits Berries. Pears. Apples. Oranges. Avocados. Prunes and raisins. Dried figs. ??? Meats and Other Protein Sources [place], kidney, ball, and soy beans. Split peas. [...] elis has 11 g of protein. ??? [place] seeds ??? 1 oz has 5.5 g [...] floor. ??? Place frequently used items in ivvi-xk-xzltt places ??? Keep electrical cables out of [...] ? Using the bathroom. ? Using household chargemaster analyst or toxic chemicals. ? Touching or taking [...] may report side effects to FDA at 5-027-HFX-4131. What other drugs will affect acetaminophen and [...] affect acetaminophen and oxycodone, including prescription and qywd-jrh-nmoetlj medicines, vitamins, and herbal products. Not all [...] to ensure that the information provided by [employer]. ('[employer]') is accurate, up-to-date, and complete, but no guarantee is made to that effect. Drug information contained herein may be time sensitive. [employer] information has been compiled for use by healthcare practitioners and consumers in the [place] and therefore [employer] does not warrant that uses outside of the [place] are appropriate, unless specifically indicated otherwise. [employer]s drug information does not endorse drugs, diagnose patients or recommend therapy. [employer]s drug information is an informational resource designed [...] effective or appropriate for any given patient. [employer] does not assume any responsibility for any aspect of healthcare administered with the aid of information [employer] provides. The information contained herein is not intended to cover all possible uses, directions, precautions, warnings, drug interactions, allergic reactions, or adverse effects. If you have questions about the drugs you are taking, check with your doctor, nurse or pharmacist. Copyright 8580-8746 [employer]. Version: 18.02. Revision Date: 08/19/2018. Emergency Awareness [...] Assistance with quitting is available by contacting 7-889-TQIP-NOW. This is a free resource providing counseling, [...] ) Urine Bilirubin Dipstick: Negative Urine Specific [place]: 1.019 -- Normal range between ( 1.005 and 1.030 ) Endocrinology 07/02/2019 9:21 AM HCG Urine Qualitative: Negative Patient Name:AVILA MARY LEEJUAN I have received and understand this information and was given the opportunity to ask questions. Patient/Target Aircraft Technician Name: Patient/Target Aircraft Technician Signature: Relationship to Patient: Clinician/Hospital Target Aircraft Technician Signature: Date: Electronically signed by Sven, [facility] Conversion Jacket Changer Addie at 01/07/2023 8:03 PM CDT documented in this encounter Plan of Treatment Not on file documented as of this encounter Visit Diagnoses Not on filedocumented in this encounter
--- OUTSIDE RECORDS SUMMARY | 2025-05-04 05:44 | XMS_ITS | Encounter Summary ---
Author Organization [employer] ([place], [place], [place], [place]) Address [address] [place] [address] Care Team Providers Care Christmas Tree Grower Name Role Phone Unavailable Primary Care Provider Unavailabl e Encounter Details Date Type Department Care Team (Late st Contact Info) Description 07/02/2019 Transcribed Document [facility] [place] [facility] [place] [address] ProviderAlly MD [address] [place] [address] Social History Tobacco Use Types [...] Barley. Bulgur wheat. Millet. Bran muffins. Popcorn. [place] wafer crackers. ?? Vegetables Sweet potatoes. Spinach. Kale. Artichokes. Cabbage. Broccoli. Green peas. Carrots. Squash. ?? Fruits Berries. Pears. Apples. Oranges. Avocados. Prunes and raisins. Dried figs. ?? Meats and Other Protein Sources [place], kidney, ball, and soy beans. Split peas. [...] elis has 11 g of protein. ?? [place] seeds - 1 oz has 5.5 g [...] floor. ?? Place frequently used items in gayz-it-dxmqf places ?? Keep electrical cables out of [...] ? Using the bathroom. ? Using household bee rancher or toxic chemicals. ? Touching or taking [...]
--- OUTSIDE RECORDS SUMMARY | 2025-05-04 05:44 | XMS_ITS | Encounter Summary ---
Author Organization [employer] ([place], [place], [place], [place]) Address [address] [place] [address] Care Team Providers Care Events Intern Name Role Phone Unavailable Primary Care Provider Unavailabl e Encounter Details Date Type Department Care Team (Late st Contact Info) Description 07/02/2019 Transcribed Document [facility] [place] Medicine [facility] [place] [address] ProviderAlly MD [facility] [place] [address] Social History Tobacco Use Types [...] Family/Significant other supported, Feelings expressed Spiritual and Adventist : Prayer shared ROMANA ANDERSON Chaplain-Non Cert - 07/02/2019 11:10 EDT Electronically signed by [facility] Conversion Card Stripper Cerner at 01/07/2023 8:23 PM CDT documented in this encounter Plan of Treatment Not on file documented as of this encounter Visit Diagnoses Not on filedocumented in this encounter
--- OUTSIDE RECORDS SUMMARY | 2025-05-04 05:44 | XMS_ITS | Encounter Summary ---
Author Organization [employer] ([place], [place], [place], [place]) Address [address] [place] [address] Care Team Providers Care Facsimile Operator Name Role Phone Unavailable Primary Care Provider Unavailabl e Encounter Details Date Type Department Care Team (Late st Contact Info) Description 07/02/2019 Transcribed Document [facility] [place] [facility] [place] [address] ProviderAlly MD [facility] [place] [address] Social History Tobacco Use Types [...] ProviderMD - 07/02/2019 11:51 AM CDT [facility] PACU Summary Primary Physician: PADMINI VALLE MD-ORT Finalized Date/Time: 07/02/19 13:29:37 Pt. Name: MARY GRAMAJO /Sex: 1970 Female Med Rec #: [id number] Physician: PADMINI VALLE MD-ORT Financial #: [id number] Pt. Type: O Room/Bed: Admit/Disch: 07/02/19 08:52:00 - [facility] PACU Case Times Entry 1 In PACU I 07/02/19 12:26:00 Ready for PACU 07/02/19 13:30:00 Discharge Discharge from PACU 07/03/19 13:30:00 I Last Modified By: Peg Rodriguez RN 07/02/19 13:29:35 [facility] PACU Case Times Audit 07/02/19 13:29:35 Chief Creative Officer: ERICK Modifier: CARRIEC 1 <*> Discharge from PACU I 07/03/19 13:29:00 07/02/19 13:29:24 Chief Creative Officer: CARRIMARLENA Modifier: CARRIEC <+> 1 Ready for PACU Discharge <+> 1 Discharge from PACU I Finalized By: Peg Rodriguez RN Document Signatures Signed By: Peg Rodriguez RN 07/02/19 13:29 documented in this encounter Plan of Treatment Not on file documented as of this encounter Visit Diagnoses Not on filedocumented in this encounter
[2025-05-04] MEDS: ACETAMINOPHEN 500MG TAB 1000 MG PO (05:51)
[2025-05-04] MEDS: ASPIRIN 81MG CHEWABLE TABLET 324 MG PO (05:51)
[2025-05-04] MEDS: BELLADONNA ALKALOIDS 60 ML ML PO (05:51)
[2025-05-04] MEDS: NITROGLYCERIN 0.4MG SL TABLET 0.4 MG SL (05:53)
[2025-05-04 06:01] LABS: Albumin Level 4.9 g/dl (3.5-5.0); Chloride 107 mmol/L (98-107); Sodium 141 mmol/L (136-145)
[2025-05-04 06:02] LABS: Potassium 4.2 mmoL/L (3.5-5.1)
[2025-05-04 06:05] LABS: Alanine Aminotransferase 26 U/L (12-78); Albumin/Globulin Ratio 1.6 (1.1-1.8); Alkaline Phosphatase 68 U/L (38-126); Anion Gap 11.2 mEq/L (5-15); Aspartate Amino Transferase 41 U/L (14-36); Bilirubin,Total 0.6 mg/dl (0.2-1.3); Blood Urea Nitrogen 18 mg/dl (7-17); Calcium 10.0 mg/dl (8.4-10.2); Carbon Dioxide 27 mmol/L (22.0-30.0); Creatinine Clearance Estimated 111 mL/min (50-200); Creatinine,Serum 0.60 mg/dl (0.52-1.04); Estimated Glomerular Filt Rate 103 ml/min (>60); GFR (African American) 125 ML/MIN (>60); Globulin 3.1 g/dL (1.3-3.2); Glucose 108 mg/dl (74-100); Total Protein,Serum 8.0 g/dl (6.3-8.2)
[2025-05-04 06:10] LABS: Hematocrit 46.9 % (37.0-47.0); Hemoglobin 15.6 g/dL (12.2-16.2); Immature Granulocytes % 0.5 %; Mean Corpuscular HGB Conc 33.3 g/dL (31.8-35.4); Mean Corpuscular Hemoglobin 31.8 pg (27.0-31.2); Mean Corpuscular Volume 95.7 fl (81-99); Nucleated Red Blood Cells % 0 %; Platelet Count 185 K/mm3 (142-424); Red Blood Count 4.90 M/mm3 (4.20-5.40); Red Cell Distribution Width-SD 46.5 fL; White Blood Count 8.4 K/mm3 (4.8-10.8)
[2025-05-04 06:16] LABS: Troponin I 0.04 ng/ml (0.00-0.034)
--- NOTE | 2025-05-04 06:22 | ECG_ITS ---
APPROVED REPORT Exam: Resting ECG HR:72 bpm ECG Measurements Heart Rate 72 AXES TN 137 P 81 QRSd 85 QRS 87 QT 378 T 69 QTc 401 Conclusion SINUS RHYTHM WITH SINUS ARRHYTHMIA NORMAL ECG UNCONFIRMED REPORT Electronically signed by : HUAN DE LA CRUZ, 05/06/2025 00:33:30
[2025-05-04 06:27] LABS: D-Dimer 0.66 ug/mL (0.0-0.5)
--- NOTE | 2025-05-04 06:45 | CA_ITS ---
APPROVED REPORT EXAM: Comprehensive 2D, Doppler, and color-flow Echocardiogram Molybdenum Steamer Operator: Mavis Fisher RT(R) Ht: 5 ft 7 in Wt: 148lbs BSA: 1.78 BP: 147/96 mmHg Indications: NSTEMI, CP, smoker, REYNOSO, HTN, CAD 2D Dimensions EF AP4 64.20 % GL Strain -25.9 % M-Mode Dimensions RVDd 1.57 cm (0.9-2.6) LVDd 4.64 cm (3.5-5.7) LVDs 3.35 cm (3.5-5.7) IVSd 0.57 cm (0.6-1.1) PWd 0.57 cm (0.6-1.1) EF (Teich) 53.90% FS 27.80% EDV (Teich) 99.30 mL ESV (Teich) 45.80 mL LV Diastology E Decel Time 237 (160-240 msec) E/A Ratio 0.7 Mitral Valve MV E Max Nacho. 60.0 (40-130 cm/s) MV A Velocity 82.0 (40-130 cm/s) E/A Ratio 0.73 MV PHT 69.0 ms Left Ventricle The left ventricle is normal size. Left ventricular systolic function is normal. The left ventricular ejection fraction is within the normal range. There is increased left ventricular wall thickness. There is normal LV segmental wall motion. Transmitral Doppler flow pattern suggests impaired LV relaxation. LVEF is 55% Right Ventricle The right ventricle is normal size. The right ventricular systolic function is normal. Atria The left atrium size is normal. The right atrium size is normal. There is no color Doppler evidence of interatrial shunt. Aortic Valve The aortic valve is mildly thickened. There is no hemodynamically significant aortic valvular stenosis. Trace aortic regurgitation is present. Mitral Valve The mitral valve is normal in structure. No evidence of mitral valve stenosis. Trace mitral regurgitation is present. Tricuspid Valve The tricuspid valve leaflets are thin and pliable. Trace tricuspid regurgitation. There is insufficient TR jet to estimate RVSP. Pulmonic Valve The pulmonary valve is not well visualized. Great Vessels The aortic root is normal in size. IVC is normal in size and collapses >50% with inspiration. Pericardium There is no pericardial effusion. Other Information Study Quality: Technically Difficult Conclusion Technically difficult study. Normal biventricular systolic function. No significant valvular stenosis or regurgitation in the visualized valves. Electronically signed by : Nola Pineda MD 05/04/2025 12:53:49
--- NOTE | 2025-05-04 06:48 | P.HP_ITS ---
<Statement entered by Edward Fischer MD - 05/05/25 10:09> Personally evaluated patient and agree with the plan of care as outlined by the [facility]. History of Present Illness *Admission Date: 05/04/25 *Reason for visit:: Chest pain *History of present illness: This is a 54-year-old female who has a past medical history significant for coronary artery disease, MS, dyspnea with exertion, low back pain, hypertension, and hyperlipidemia who presents with a chief complaint of chest pain. Due to patient's symptoms, she presented to the emergency room for evaluation. EKG had nonspecific changes in the ST segment and patient had an initial troponin of 0.04. Patient did respond to nitrites and a GI cocktail. Due to patient's symptoms, she has been admitted for further management. During my evaluation of the patient, patient states that she was awakened at around 0 300 this morning with severe chest pain/chest pressure. She states it was coupled with some diaphoresis and shortness of air. As a result, she had her spouse bring her to the emergency room for evaluation. Patient states her chest pain/discomfort started Friday evening. She currently works at the local [employer]. It is worth mentioning that patient had a provocative workup performed in July of last year and during her stress patient had bilateral arm fatigue and mild heaviness in both arms and a 1-1.[address] depression inferiorly and the 0.5-1 mm horizontal and upsloping ST depression laterally. Patient states that her mother had open heart surgery and she never had a follow-up appointment with cardiology after the stress test. Later, patient denies any chest pain, lightheadedness, dizziness, fever, chills, rigors, nausea, vomiting, PND, dyspnea, shortness of breath, or diarrhea. Per my read, chest x-ray is negative for any acute cardiopulmonary process-is pending final read by the radiologist. Additional pertinent labs obtained include A D-dimer of 0.66, BUN of 18, blood glucose of 108, AST of 41, and troponin 0.04. [facility] Disclaimer: The information contained in this section may have been updated after the patient was seen, as this information can be updated by other users. Medical History RUQ abdominal pain Thoracic back pain Viral illness Multiple lung nodules on CT Smoking greater than 30 pack years Dyspnea on exertion Hypertrophy of both inferior nasal turbinates Hoarseness Tobacco use Lumbar disc herniation Degenerative disc disease, lumbar Pelvic pain in female Tachycardia Tobacco dependence syndrome Low Back Pain Exposure to COVID-19 virus CAD (coronary artery disease) Encounter for pre-operative cardiovascular clearance Hypertension Hyperlipemia Surgical History No significant past surgical history Family History Other No significant family history Social History (Updated 04/20/25 @ 14:33 by Fanny Spence RN) Smoking Status: Current every day smoker tobacco type: cigarettes packs per day: 1 alcohol intake: never substance use type: denies use current occupational status: employed Travel in the last 8 weeks?: None household members: spouse housing: house caffeine: Yes Other Medical History Have you received the Flu Vaccine for this season: No Have you received the Pneumonia Vaccine: No Review of Systems Review of Systems Review of systems:: pertinent systems reviewed and negative unless documented below Constitutional Constitutional: Reports system reviewed and no additional complaints, except as documented Eyes Eyes: Reports system reviewed and no additional complaints, except as documented ENT Ears, Nose, Mouth, and Throat: Reports system reviewed and no additional complaints, except as documented *Cardiovascular Cardiovascular: Reports chest pain, Reports chest pain at rest and Reports dyspnea *Respiratory Respiratory: Reports dyspnea *Gastrointestinal Gastrointestinal: Reports system reviewed and no additional complaints, except as documented *Genitourinary Genitourinary: Reports system reviewed and no additional complaints, except as documented *Musculoskeletal Musculoskeletal: Reports system reviewed and no additional complaints, except as documented Integumentary/Breasts Skin/Breast: Reports system reviewed and no additional complaints, except as documented *Neurologic Neurologic: Reports system reviewed and no additional complaints, except as documented Psychiatric Psychiatric: Reports system reviewed and no additional complaints, except as documented Endocrine Endocrine: Reports system reviewed and no additional complaints, except as documented Hematologic/Lymphatic Hematologic/Lymphatic: Reports system reviewed and no additional complaints, except as documented Allergic/Immunologic Allergic/Immunologic: Reports system reviewed and no additional complaints, except as documented Meds Home Medications and Allergies Home Medications ?Medication ?Instructions ?Recorded ?Confirmed ?Type aspirin 81 mg tablet,delayed 81 mg PO DAILY #90 tabs 0 04/05/24 05/04/25 Rx release (Adult Low Dose Aspirin) buspirone 10 mg tablet 10 mg PO BID PRN MOOD 05/04/25 History albuterol sulfate 90 mcg/actuation 2 inh inhalation QI D PRN shortness 09/02/24 05/04/25 Rx aerosol inhaler of breath or wheezing 90 day s #8.5 grams atorvastatin 20 mg tablet See Rx Instructions .Route 0 11/05/24 05/04/25 Rx .COMPLEX #90 tabs gabapentin 100 mg capsule 100 mg PO TID #90 caps 04/0605/04/25 Rx metoprolol succinate 25 mg 50 mg PO DAILY 04/06/25 History tablet,extended release 24 hr famotidine 20 mg tablet See Rx Instructions .Route 0 04/18/25 05/04/25 Rx .COMPLEX #90 tabs methocarbamol 500 mg tablet 500 mg PO TID PRN muscle p ain #42 04/20/25 05/04/25 Rx tabs New Prescriptions to Start Prescriptions: Allergies Allergy/AdvReac Type Severity Reaction Status Date / Time lisinopril (LISINOPRIL) Allergy Mild COUGH Verified 04/06/25 15:28 Exam Data for Last 24 hours Vital signs and Labs for Last 24 Hours: Temp Pulse Resp BP Pulse Ox O2 Del Method 97.7 F 92 H 12 147/96 H 98 Room Air 05/04/25 05:41 05/04/25 06:00 05/04/25 06:00 05/04/25 06:00 05/04/25 06:00 05/04/25 05:41 Laboratory Results - last 24 hr 05/04/25 05:36: WBC 8.4, RBC 4.90, Hgb 15.6, Hct 46.9, MCV 95.7, MCH 31.8 H, MCHC 33.3, RDW 13.0, Plt Count 185, MPV 10.5 H, Neut % (Auto) 47.6, Lymph % (Auto) 38.8, [place] % (Auto) 9.2, Eos % (Auto) 3.1, Baso % (Auto) 0.8, Neut # (Auto) 4.0, Lymph # (Auto) 3.3, [place] # (Auto) 0.8, Eos # (Auto) 0.3, Baso # (Auto) 0.1, D-Dimer 0.66 H, Sodium 141, Potassium 4.2, Chloride 107, Carbon Dioxide 27, Anion Gap 11.2, BUN 18 H, Creatinine 0.60, Estimated Creat Clear 111, Estimated GFR 103, Est GFR ( Amer) 125, Glucose 108 H, Calcium 10.0, Total Bilirubin 0.6, AST 41 H, ALT 26, Alkaline Phosphatase 68, Troponin I 0.04 H, Total Protein 8.0, Albumin 4.9, Globulin 3.1, Albumin/Globulin Ratio 1.6 I & O for Last 24 hours: Intake & Output 05/01/25 05/02/25 05/03/25 05/04/25 23:59 23:59 23:59 23:59 Weight 67.132 kg Constitutional Constitutional: no acute distress and cooperative *Routine HEENT Exam Head: Present normocephalic and atraumatic Eye: Present EOMI, PERRL and normal accommodation ENT: Present mucous membranes moist *Routine Neck Exam Neck: Present supple, full ROM and trachea midline *Routine Respiratory Exam Respiratory: Present CTA bilaterally, normal respiratory effort, able to speak in complete sentences and symmetric chest movement *Routine Cardiovascular Exam Cardiovascular: Present RRR, Normal S1 and Normal S2 *Routine Abdominal Exam Abdominal: Present soft and normoactive bowel sounds *Routine Rectal Exam Rectal:: deferred *Routine Genitalia Exam Genitalia:: deferred *Routine Extremities Exam Extremities: Present full ROM, pulses intact and normal capillary refill Routine Back/Spine/Pelvis Exam Back/Spine: Present full ROM *Routine Skin Exam Skin: Present intact, dry, warm and normal turgor *Routine Neurological Exam Neurological: Present alert, oriented X3, CN II-XII intact, moving all extremities and normal speech Routine Psychiatric Exam Psychiatric: Present normal affect and normal thought process H&P: Result Impressions 54-year-old female with known coronary artery disease and is a smoker presents with chest pressure/chest pain that was relieved by nitrites. Patient did have a provocative workup that had ischemic changes identified during the stress. Patient had no follow-up post provocative workup Assessment and Plan *Assessment and plan (1) Acute non-ST elevation myocardial infarction (NSTEMI): Status: Acute Category: Medical Code(s): I21.4 - Non-ST elevation (NSTEMI) myocardial infarction (2) Chest pain: Status: Acute Qualifiers: Chest pain type: unspecified Qualified Code(s): R07.9 - Chest pain, unspecified Category: Medical Code(s): R07.9 - Chest pain, unspecified (3) Elevated d-dimer: Status: Acute Category: Medical Code(s): R79.89 - Other specified abnormal findings of blood chemistry Plan Assessment: Chest pain Possible NSTEMI - Obtain 2D echo - Consult cardiology - Continue to trend patient's troponin - Keep patient n.p.o. until evaluated by cardiology Elevated D-dimer - Will obtain CTA of the chest Plan: Admit patient to the MedSurg unit on telemetry Saline lock Vital signs every 4 hours Keep patient n.p.o. CBC/BMP daily Patient did receive around 24 mg of aspirin x 1 40 mg Lovenox subcu daily for DVT prophylaxis 5 mg [place] p.o. every 4 hours for moderate pain 2 mg morphine IV push every 4 hours as needed severe pain 21 mg nicotine patch daily 4 mg Zofran IV push every 8 hours pain nausea ROM Full code I will discuss this case with attending physician Dr. Fischer and I look forward to more input
--- NOTE | 2025-05-04 06:55 | CT_ITS ---
FINAL REPORT TECHNIQUE: Thin section axial CT with contrast with multiplanar reconstruction This study was performed with techniques to keep radiation doses as low as reasonably achievable, (ALARA). Individualized dose reduction techniques using automated exposure control or adjustment of mA and/or kV according to the patient''s size were employed. CLINICAL HISTORY: chest pain and shortness of breath COMPARISON: CT low-dose 08/04/2024 FINDINGS: Pulmonary vessels enhance in normal fashion without evidence of embolism. Thoracic aorta shows no dissection or aneurysm. Left lower lobe 11 mm nodule on image 79 of series 5 is stable. The previously described subpleural nodule in the right upper lobe is less well seen from the previous exam, on image 40. Emphysematous change is noted. There is mild dependent atelectasis. No evidence of pneumonia or edema. There is no significant pleural effusion. There is no significant pericardial effusion. No mediastinal or hilar adenopathy is present. Limited images of the upper abdomen demonstrate multiple right renal cysts. IMPRESSION: No evidence of pulmonary embolism Stable dominant left lower lobe nodule. Recommend continued follow-up to establish 2 year stability. Reviewed, Interpreted and Dictated by Joie Padilla MD Transcribed by Vonda Cuadra Authenticated and [facility]
[2025-05-04] MEDS: IOPAMIDOL-370 (76%);100ML BOTTLE 80 ML IV ×2 (07:19→15:56)
[2025-05-04] MEDS: 0.9 % SODIUM CHLORIDE 50 ML VIAL IV (07:19)
[2025-05-04] MEDS: SODIUM CHLORIDE 0.9% 10ML SYR (RAD ONLY) 10 ML IV (07:19)
--- NOTE | 2025-05-04 07:21 | PC.NURSE ---
report called to Yanira BONNER
[2025-05-04] MEDS: HYDROCODONE/APAP 5/325 MG TABLET 1 TAB PO (08:13)
[2025-05-04] MEDS: METOPROLOL SUCCINATE XL 25MG TABLET 25 MG PO (08:45)
[2025-05-04] MEDS: ASPIRIN EC 81MG TABLET 81 MG PO (08:45)
[2025-05-04 09:05] LABS: Troponin I 0.05 ng/ml (0.00-0.034)
[2025-05-04 10:12] LABS: Cholesterol 187 mg/dl (140-200); HDL Cholesterol 72 mg/dl (40-60); Triglycerides 106 mg/dl (30-150)
--- NOTE | 2025-05-04 10:26 | IR_ITS ---
APPROVED REPORT Patient Location: Inpatient PROCEDURES Left heart catheterization Left ventriculogram Selective coronary angiogram Drug-eluting stent deployment to the mid circumflex artery INDICATION Acute non-ST elevation myocardial infarction, Coronary artery disease Informed consent was obtained prior to the procedure. COMPLICATIONS None Estimated Blood Loss: Less than 10 mls TECHNIQUE One percent lidocaine used to anesthetize the right anterior aspect of the wrist. The right radial artery was accessed via the Seldinger technique. A 6 [place] sheath was placed in the right radial artery. 2.5 mg of Verapamil, 800 mcg of nitroglycerin, 1mg Lidocaine and 5000 U Heparin were given through the arterial sheath. The JL3 catheter was also used to perform left heart catheterization, left ventriculogram and selective coronary angiogram. At the end the diagnostic angiogram therapeutic heparin was administered given a therapeutic ACT and the guide catheter was placed in left main artery followed by Choice PT extra-support wire placed distally in the circumflex artery. A 2.5 x 15 mm Yonny frontier stent was deployed at 16 [place]leen in the mid circumflex artery reducing the stenosis to 0%. ARLENE-3 flow was present before and after the procedure. At the end the procedure the apparatus was removed the sheath was removed and hemostasis was achieved and TR banding patient was transferred to the postop porting in stable condition ANGIOGRAPHIC RESULTS The left main artery Normal The left anterior descending artery Is approximately normal and has a mid vessel 20 to 30% smooth stenosis The circumflex artery Is codominant with proximal 10% stenoses and a mid vessel concentric 70 to 80% stenosis immediately proximal to the terminal 2 obtuse marginal arteries The right coronary artery Is codominant with 10% luminal regularities in the proximal mid segment and multiple 40% stenosis in the mid to distal segment The BRADEN ventriculogram reveals Preserved 60% The left ventricular end-diastolic pressure 15 mmHg IMPRESSION Culprit vessel for the non-STEMI likely being the circumflex artery Successful stenting the circumflex artery severe disease reduced to less than 10% with 1 drug-eluting stent Persistent moderate stenosis in the mid to distal codominant right coronary as described above Preserved ejection fraction Normal LVEDP PLAN 1. Dual antiplatelet therapy for 1 year 2. Cardiac rehabilitation 3. LDL less than 55 to be achieved by high intensity statin 4. Avoidance of tobacco products 5. Risk factor modification Electronically signed by : Kashif Cervantes MD 05/05/2025 13:28:24
[2025-05-04 10:45] LABS: Thyroid Stimulating Hormone 4.27 uIU/mL (0.465-4.68)
--- NOTE | 2025-05-04 10:47 | EXP.CARD.CON ---
History of Present Illness History of Present Illness Consult date: 05/04/25 Requesting physician: Edward Fischer Consult reason: chest pain Chief complaint: chest pain History of present illness: 54-year-old white female established patient of our office presented to the emergency room overnight with sudden onset shortness of breath and chest pain. Troponin elevated which is why we are consulted. Patient has a history of CAD status post stenting of left circumflex in 2014. I do not have a copy of her cath report from that time. She reports for several weeks she has had worsening episodic chest discomfort and arm pain which is worse while at work and seems to improve some with ibuprofen. Last night her symptoms felt much worse and were associated with severe shortness of breath and nausea with diaphoresis so she presented to the emergency room for evaluation. On arrival first troponin 0.04-second was 0.05. She does have a mildly elevated D-dimer but CTA was negative for PE. EKG is unremarkable. This morning patient reports she is feeling significantly better. She admits she has been very worried about her worsening symptoms recently. I explained her rising serial troponin in the setting of ongoing symptoms, history of CAD and ongoing tobacco use left heart cath is recommended. She is agreeable to proceed. [facility] Disclaimer: The information contained in this section may have been updated after the patient was seen, as this information can be updated by other users. Medical History Depression RUQ abdominal pain Thoracic back pain Multiple lung nodules on CT Smoking greater than 30 pack years Dyspnea on exertion Hypertrophy of both inferior nasal turbinates Hoarseness Tobacco use Viral illness Low Back Pain Exposure to COVID-19 virus Tobacco dependence syndrome Tachycardia CAD (coronary artery disease) Encounter for pre-operative cardiovascular clearance Lumbar disc herniation Degenerative disc disease, lumbar Pelvic pain in female Hypertension Hyperlipemia Surgical History History of cardiac cath History of back surgery No significant past surgical history Family History Other No significant family history Social History Smoking Status: Current every day smoker tobacco type: cigarettes packs per day: 1 alcohol intake: never substance use type: denies use current occupational status: employed Travel in the last 8 weeks?: None household members: spouse housing: house caffeine: Yes Contact w/someone who lives/traveled outside [place] past 30 days?: No Exposure to someone with infectious disease in past 14 days?: No Do you have a fever (greater than 100.4 F or 38 C)?: No Have you tested positive for COVID-19?: No Exposed to someone with COVID-19 in past 14 days?: No Do you have a sore throat?: No Do you have a cough?: No Do you have any weakness?: No Are you experiencing any nausea/vomitting?: No Do you have any diarrhea?: No Are you experiencing any unusual bleeding?: No Do you have any muscle aches/pain?: No Do you have any abdominal pain?: No Are you experiencing loss of taste or smell?: No Review of Systems Constitutional Constitutional: Denies fatigue and Denies weakness Eyes Eyes: Denies loss of vision ENT Ears, Nose, Mouth, and Throat: Denies hearing loss *Cardiovascular Cardiovascular: Reports chest pain and Denies dyspnea *Respiratory Respiratory: Denies cough and Denies dyspnea *Gastrointestinal Gastrointestinal: Denies change in stool character, Denies nausea and Denies vomiting *Musculoskeletal Musculoskeletal: Denies muscle weakness Integumentary/Breasts Skin/Breast: Denies changing lesions *Neurologic Neurologic: Reports system reviewed and no additional complaints, except as documented, Denies loss of vision and Denies weakness Endocrine Endocrine: Denies fatigue Exam Data for Last 24 hours Vital signs and Labs for Last 24 Hours: Temp Pulse Resp BP Pulse Ox O2 Del Method 97.7 F 67 16 123/92 H 98 Room Air 05/04/25 07:22 05/04/25 08:00 05/04/25 08:00 05/04/25 08:00 05/04/25 09:02 05/04/25 09:02 Laboratory Results - last 24 hr 05/04/25 05:36: WBC 8.4, RBC 4.90, Hgb 15.6, Hct 46.9, MCV 95.7, MCH 31.8 H, MCHC 33.3, RDW 13.0, Plt Count 185, MPV 10.5 H, Neut % (Auto) 47.6, Lymph % (Auto) 38.8, [place] % (Auto) 9.2, Eos % (Auto) 3.1, Baso % (Auto) 0.8, Neut # (Auto) 4.0, Lymph # (Auto) 3.3, [place] # (Auto) 0.8, Eos # (Auto) 0.3, Baso # (Auto) 0.1, D-Dimer 0.66 H, Sodium 141, Potassium 4.2, Chloride 107, Carbon Dioxide 27, Anion Gap 11.2, BUN 18 H, Creatinine 0.60, Estimated Creat Clear 111, Estimated GFR 103, Est GFR ( Amer) 125, Glucose 108 H, Calcium 10.0, Total Bilirubin 0.6, AST 41 H, ALT 26, Alkaline Phosphatase 68, Troponin I 0.04 H, Total Protein 8.0, Albumin 4.9, Globulin 3.1, Albumin/Globulin Ratio 1.6, Triglycerides 106, Cholesterol 187, LDL Cholesterol Direct 84.12 L, VLDL Cholesterol 21, HDL Cholesterol 72 H, Cholesterol/HDL Ratio 2.6 05/04/25 08:36: Troponin I 0.05 H I & O for Last 24 hours: Intake & Output 05/01/25 05/02/25 05/03/25 05/04/25 23:59 23:59 23:59 23:59 Weight 141 lb 8 oz Constitutional Constitutional: no acute distress and cooperative *Routine HEENT Exam Eye: Present PERRL *Routine Respiratory Exam Respiratory: Present CTA bilaterally; Absent accessory muscle use, wheezes or crackles *Routine Cardiovascular Exam Cardiovascular: Present RRR, Normal S1 and Normal S2; Absent murmur, gallop or rubs *Routine Abdominal Exam Abdominal: Present soft; Absent tenderness *Routine Extremities Exam Extremities: Present pulses intact; Absent cyanosis or edema *Routine Skin Exam Skin: Present intact; Absent erythema or wounds *Routine Neurological Exam Neurological: Present alert and oriented X3 Routine Psychiatric Exam Psychiatric: Present cooperative Meds Home Medications and Allergies Home Medications ?Medication ?Instructions ?Recorded ?Confirmed ?Type buspirone 10 mg tablet 10 mg PO BID PRN depression 07/14/24 05/04/25 History albuterol sulfate 90 mcg/actuation 2 inh inhalation QID PRN shortness 09/02/24 05/04/25 Rx aerosol inhaler of breath or wheezing 90 days #8.5 grams gabapentin 100 mg capsule 100 mg PO TID #90 caps 04/06/25 05/04/25 Rx metoprolol succinate 25 mg 25 mg PO HS 04/06/25 05/04/25 History tablet,extended release 24 hr methocarbamol 500 mg tablet 500 mg PO TID PRN muscle pain #42 04/20/25 05/04/25 Rx tabs aspirin 81 mg tablet,delayed 81 mg PO HS 05/04/25 05/04/25 History release (Adult Low Dose Aspirin) atorvastatin 20 mg tablet 20 mg PO DAILY 05/04/25 05/04/25 History famotidine 20 mg tablet 20 mg PO HS 05/04/25 05/04/25 History New Prescriptions to Start Prescriptions: Allergies Allergy/AdvReac Type Severity Reaction Status Date / Time lisinopril (LISINOPRIL) Allergy Mild COUGH Verified 04/06/25 15:28 Assessment and Plan *Assessment and plan (1) Acute non-ST elevation myocardial infarction (NSTEMI): Status: Acute Category: Medical Code(s): I21.4 - Non-ST elevation (NSTEMI) myocardial infarction (2) CAD (coronary artery disease): Status: Chronic Qualifiers: Coronary Disease-Associated Artery/Lesion type: [place] artery [place] vs. transplanted heart: [place] heart Associated angina: without angina Qualified Code(s): I25.10 - Atherosclerotic heart disease of [place] coronary artery without angina pectoris Category: Medical Code(s): I25.10 - Atherosclerotic heart disease of [place] coronary artery without angina pectoris (3) Hypertension: Status: Chronic Qualifiers: Hypertension type: essential hypertension Qualified Code(s): I10 - Essential (primary) hypertension Category: Medical Code(s): I10 - Essential (primary) hypertension (4) Hyperlipemia: Status: Chronic Qualifiers: Hyperlipidemia type: mixed hyperlipidemia Qualified Code(s): E78.2 - Mixed hyperlipidemia Category: Medical Code(s): E78.5 - Hyperlipidemia, unspecified Plan CAD with NSTEMI - known CAD with JOSEY to CX 2014 - presented here with worsening episodic CP and rising serial Trop, EKG - no ischemic changes - cont ASA, Lovenox, BB, Statin, PRN Ntg - pt agreeble to [facility] today Tob Use - works at [employer], states she can't quit Htn - 120-150 here - cont Metoprolol here, will need outpatient BP log, consider additional Rx HLD - LDL 84, not at goal for CAD - increase to high dose statin
[2025-05-04 11:08] LABS: Hemoglobin A1C 5.6 % (4.0-6.0)
--- NOTE | 2025-05-04 13:15 | CT_ITS ---
FINAL REPORT TECHNIQUE: Thin section axial images were obtained through the cervical spine without contrast. Multiplanar reconstruction images were obtained from the axial data. Exam was performed using dose reduction techniques. CLINICAL HISTORY: Severe shooting pains in bilateral arms COMPARISON: None FINDINGS: There is no acute fracture or acute malalignment of the cervical spine. There is no evidence of unilateral or bilateral facet lock. The craniocervical junction is intact. There is anterolisthesis of C4 on C5, likely degenerative. Multilevel degenerative disc disease is most pronounced at C5-6. C2-3: Unremarkable. C3-4: Central protrusion. Bilateral foraminal stenosis [id number]-right. C4-5: Annular bulge with degenerative endplate change. No central canal stenosis. Severe bilateral foraminal stenosis. C5-6: Annular disc bulge. Degenerative endplate change. Severe [id number]-left foraminal stenosis. C6-7: Annular disc bulge with degenerative endplate changes. No central canal stenosis. [id number]-[id number]-julrtden bilateral foraminal stenosis. C7-T1: Unremarkable. IMPRESSION: Multilevel degenerative disc disease with no acute fracture. Multilevel foraminal stenosis. Consider MRI. Reviewed, Interpreted and Dictated by Arlyn Mills MD Transcribed by Vonda Cuadra Authenticated and [facility]
[2025-05-04] MEDS: HEPARIN 1,000 UNITS/500ML NS (CATH LAB) 3000 UNIT IV (14:39)
[2025-05-04] MEDS: VERAPAMIL 2.5MG/ML 2ML VIAL 2.5 MG IV (14:39)
[2025-05-04] MEDS: LIDOCAINE 1% 10ML MDV 10 ML IJ (14:39)
[2025-05-04] MEDS: HEPARIN 1,000 UNITS/ML 10ML VIAL (CATH LAB) 5000 UNIT IV ×2 (14:39→15:30)
[2025-05-04] MEDS: NITROGLYCERIN 800MCG/8ML SYR (CATH LAB) 800 MCG IA (14:39)
[2025-05-04] MEDS: 0.9 % SODIUM CHLORIDE 500 ML 25 ML IV (14:40)
[2025-05-04] MEDS: MIDAZOLAM HCL 1MG/ML 5ML VIAL 1 MG IV (15:41)
[2025-05-04] MEDS: FENTANYL 100MCG/2ML VIAL 50 MCG IV (15:41)
[2025-05-04] MEDS: PRASUGREL 10MG TAB 60 MG PO (15:55)
[2025-05-04 15:57] LABS: CATHL Activated Clotting Time 333 SEC (74-125)
--- NOTE | 2025-05-04 18:18 | PC.NURSE ---
pt resting in bed, no complaints at this time, iv c/d/i
--- NOTE | 2025-05-04 18:32 | EXP.DC.SUM ---
General Admission date:: 05/04/25 HPI HPI HPI: This is a 54-year-old female who has a past medical history significant for coronary artery disease, [place], dyspnea with exertion, low back pain, hypertension, and hyperlipidemia who presents with a chief complaint of chest pain. Due to patient's symptoms, she presented to the emergency room for evaluation. EKG had nonspecific changes in the ST segment and patient had an initial troponin of 0.04. Patient did respond to nitrites and a GI cocktail. Due to patient's symptoms, she has been admitted for further management. During my evaluation of the patient, patient states that she was awakened at around 0 300 this morning with severe chest pain/chest pressure. She states it was coupled with some diaphoresis and shortness of air. As a result, she had her spouse bring her to the emergency room for evaluation. Patient states her chest pain/discomfort started Friday evening. She currently works at the local [employer]. It is worth mentioning that patient had a provocative workup performed in July of last year and during her stress patient had bilateral arm fatigue and mild heaviness in both arms and a 1-1.[address] depression inferiorly and the 0.5-1 mm horizontal and upsloping ST depression laterally. Patient states that her mother had open heart surgery and she never had a follow-up appointment with cardiology after the stress test. Later, patient denies any chest pain, lightheadedness, dizziness, fever, chills, rigors, nausea, vomiting, PND, dyspnea, shortness of breath, or diarrhea. Per my read, chest x-ray is negative for any acute cardiopulmonary process-is pending final read by the radiologist. Additional pertinent labs obtained include A D-dimer of 0.66, BUN of 18, blood glucose of 108, AST of 41, and troponin 0.04. Hospital Course Hospital Course Hospital Course: Mary Blandon is a 54-year-old female who presented with chest pressure and bilateral arm pain and was admitted for NSTEMI. #NSTEMI #CAD ?Presented with chest pressure, troponins uptrending 0.05, EKG without acute ischemic changes. ? Cardiology consulted, s/p PCI with 1 stent to the circumflex artery. Patient tolerated procedure well. ? ECHO with normal biventricular systolic function, no wall motion abnormalities. ? A1c 5.6, LDL 84, TSH normal. ? Started prasugrel 10 mg, atorvastatin 80 mg, continue home aspirin 81 mg, metoprolol succinate 25 mg. ? Will follow-up with cardiology within 1 week. #Bilateral arm pain ? 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 Has had acute onset bilateral shooting arm pains, and aggravation of her left sided radiculopathy. ? Seems more consistent with cervical bulging disc versus herniated disc. ? CT cervical spine shows degenerative status and severe foraminal stenosis. ? Recommended outpatient PT, but patient declined due to work schedule and not being able to afford it. ? Advised patient to follow-up with PCP. #Current tobacco smoker #Left lower lobe lung lesion ? Counseled extensively, not ready for cessation. Has nicotine patches at home. ? Known left lower lobe lung lesion, 1.1 cm. Stable in size. Continue follow-up with PCP. Total time spent on discharge: 32 minutes on chart review, counseling, documentation, and direct care with patient. Exam Data for Last 24 hours Vital signs and Labs for Last 24 Hours: Temp Pulse Resp BP Pulse Ox O2 Del Method 97.8 F 50 L 20 106/70 L 96 Room Air 05/04/25 12:00 05/04/25 16:00 05/04/25 16:00 05/04/25 16:00 05/04/25 16:00 05/04/25 17:00 Laboratory Results - last 24 hr 05/04/25 05:36: WBC 8.4, RBC 4.90, Hgb 15.6, Hct 46.9, MCV 95.7, MCH 31.8 H, MCHC 33.3, RDW 13.0, Plt Count 185, MPV 10.5 H, Neut % (Auto) 47.6, Lymph % (Auto) 38.8, [place] % (Auto) 9.2, Eos % (Auto) 3.1, Baso % (Auto) 0.8, Neut # (Auto) 4.0, Lymph # (Auto) 3.3, [place] # (Auto) 0.8, Eos # (Auto) 0.3, Baso # (Auto) 0.1, D-Dimer 0.66 H, Sodium 141, Potassium 4.2, Chloride 107, Carbon Dioxide 27, Anion Gap 11.2, BUN 18 H, Creatinine 0.60, Estimated Creat Clear 111, Estimated GFR 103, Est GFR ( Amer) 125, Glucose 108 H, Hemoglobin A1c 5.6, Calcium 10.0, Total Bilirubin 0.6, AST 41 H, ALT 26, Alkaline Phosphatase 68, Troponin I 0.04 H, Total Protein 8.0, Albumin 4.9, Globulin 3.1, Albumin/Globulin Ratio 1.6, Triglycerides 106, Cholesterol 187, LDL Cholesterol Direct 84.12 L, VLDL Cholesterol 21, HDL Cholesterol 72 H, Cholesterol/HDL Ratio 2.6, TSH 4.27 05/04/25 08:36: Troponin I 0.05 H 05/04/25 15:19: Activated Clotting Time 333 H* I & O for Last 24 hours: Intake & Output 05/01/25 05/02/25 05/03/25 05/04/25 23:59 23:59 23:59 23:59 Intake Total 0 / 0 Output Total 0 / 0 Balance 0 / 0 Weight 64.183 kg Constitutional Constitutional: no acute distress *Routine HEENT Exam Head: Present normocephalic Eye: Present EOMI and PERRL ENT: Present mucous membranes moist *Routine Neck Exam Neck: Present supple; Absent lymphadenopathy *Routine Respiratory Exam Respiratory: Present wheezes; Absent CTA bilaterally *Routine Cardiovascular Exam Cardiovascular: Present RRR *Routine Abdominal Exam Abdominal: Present soft and normoactive bowel sounds; Absent tenderness *Routine Extremities Exam Extremities: Absent cyanosis, clubbing or edema *Routine Skin Exam Skin: Present warm; Absent rash *Routine Neurological Exam Neurological: Present alert and oriented X3 Results Data Completed and Pending Labs on day of discharge: Labs from last 24 hours 05/04/25 05/04/25 05/04/25 15:19 08:36 05:36 WBC 8.4 RBC 4.90 Hgb 15.6 Hct 46.9 MCV 95.7 MCH 31.8 H MCHC 33.3 RDW 13.0 Plt Count 185 MPV 10.5 H Neut % (Auto) 47.6 Lymph % (Auto) 38.8 [place] % (Auto) 9.2 Eos % (Auto) 3.1 Baso % (Auto) 0.8 Neut # (Auto) 4.0 Lymph # (Auto) 3.3 [place] # (Auto) 0.8 Eos # (Auto) 0.3 Baso # (Auto) 0.1 Activated Clotting Time 333 H* D-Dimer 0.66 H Sodium 141 Potassium 4.2 Chloride 107 Carbon Dioxide 27 Anion Gap 11.2 BUN 18 H Creatinine 0.60 Estimated Creat Clear 111 Estimated GFR 103 Est GFR ( Amer) 125 Glucose 108 H Hemoglobin A1c 5.6 Calcium 10.0 Total Bilirubin 0.6 AST 41 H ALT 26 Alkaline Phosphatase 68 Troponin I 0.05 H 0.04 H Total Protein 8.0 Albumin 4.9 Globulin 3.1 Albumin/Globulin Ratio 1.6 Triglycerides 106 Cholesterol 187 LDL Cholesterol Direct 84.12 L VLDL Cholesterol 21 HDL Cholesterol 72 H Cholesterol/HDL Ratio 2.6 TSH 4.27 DS: Diagnosis Discharge Diagnosis (1) Acute non-ST elevation myocardial infarction (NSTEMI): Status: Acute Code(s): I21.4 - Non-ST elevation (NSTEMI) myocardial infarction (2) CAD (coronary artery disease): Status: Chronic Code(s): I25.10 - Atherosclerotic heart disease of [place] coronary artery without angina pectoris Qualifiers: Associated angina: without angina Coronary Disease-Associated Artery/Lesion type: [place] artery [place] vs. transplanted heart: [place] heart Qualified Code(s): I25.10 - Atherosclerotic heart disease of [place] coronary artery without angina pectoris (3) Hypertension: Status: Chronic Code(s): I10 - Essential (primary) hypertension Qualifiers: Hypertension type: essential hypertension Qualified Code(s): I10 - Essential (primary) hypertension (4) Hyperlipemia: Status: Chronic Code(s): E78.5 - Hyperlipidemia, unspecified Qualifiers: Hyperlipidemia type: mixed hyperlipidemia Qualified Code(s): E78.2 - Mixed hyperlipidemia Meds Home Medications and Allergies Home Medications ?Medication ?Instructions ?Recorded ?Confirmed ?Type buspirone 10 mg tablet 10 mg PO BID PRN depression 07/14/24 05/04/25 History albuterol sulfate 90 mcg/actuation 2 inh inhalation QID PRN shortness 09/02/24 05/04/25 Rx aerosol inhaler of breath or wheezing 90 days #8.5 grams gabapentin 100 mg capsule 100 mg PO TID #90 caps 04/06/25 05/04/25 Rx metoprolol succinate 25 mg 25 mg PO HS 04/06/25 05/04/25 History tablet,extended release 24 hr methocarbamol 500 mg tablet 500 mg PO TID PRN muscle pain #42 04/20/25 05/04/25 Rx tabs aspirin 81 mg tablet,delayed 81 mg PO HS 05/04/25 05/04/25 History release (Adult Low Dose Aspirin) famotidine 20 mg tablet 20 mg PO HS 05/04/25 05/04/25 History prasugrel HCl 10 mg tablet 10 mg PO DAILY 30 days #30 tabs 05/04/25 Rx atorvastatin 80 mg tablet (Lipitor) 80 mg PO HS 30 days #30 tabs 05/05/25 Rx New Prescriptions to Start Prescriptions: atorvastatin [Lipitor] Edward Fischer prasugrel HCl Edward Fischer Allergies Allergy/AdvReac Type Severity Reaction Status Date / Time lisinopril (LISINOPRIL) Allergy Mild COUGH Verified 04/06/25 15:28 Discharge Plan Disposition Patient Disposition: Home, Self-Care Condition: Fair Follow up Plan Follow up with: Timothy Lemos PA [Physician Advertising Account Executive, Cardiology] - 1 week Referral Note: office should call patient with appointment Prescriptions/Medication Reconciliation: New prasugrel HCl 10 mg Tablet 10 mg PO DAILY 30 Days Qty: 30 0RF atorvastatin [Lipitor] 80 mg tablet 80 mg PO HS 30 Days Qty: 30 0RF Continued metoprolol succinate 25 mg tablet extended release 24 hr 25 mg PO HS gabapentin 100 mg capsule 100 mg PO TID Qty: 90 0RF buspirone 10 mg tablet 10 mg PO BID PRN (Reason: depression) albuterol sulfate 90 mcg/actuation HFA aerosol inhaler 2 inh inhalation QID PRN (Reason: shortness of breath or wheezing) 90 Days Qty: 8.5 2RF methocarbamol 500 mg tablet 500 mg PO TID PRN (Reason: muscle pain) Qty: 42 0RF famotidine 20 mg tablet 20 mg PO HS aspirin [Adult Low Dose Aspirin] 81 mg tablet,delayed release (DR/EC) 81 mg PO HS Discontinued atorvastatin 20 mg tablet 20 mg PO DAILY Problem Reconciliation Problems Reviewed?: Yes Patient Discharge Instructions Patient Instructions: DI for Heart Attack, DI for Cardiac Catheterization, DI for Surgical Site Infection, DI for Chest Pain Print Language: Cambodian Providers Primary Care Provider: Provider,Referral Admit Provider: Edward Fischer Attending Provider: Edward Fischer
[2025-05-04] MEDS: ATORVASTATIN 40MG TABLET 80 MG PO (20:05)
--- NOTE | 2025-05-04 20:31 | PC.NURSE ---
pt left floor at this time
--- NOTE | 2025-05-05 10:34 | SW/DCPLANNER ---
Spoke with patient on the phone. Patient stated that she is aware of her upcoming appointment. Patient stated that she was able to get her new medicine picked up from [facility]. Patient stated that she has no concerns or questions at this time. Jarad Bess
== END 2025-05-04 20:31 | disposition home or self-care (01) ==
LOC: ER 05:42 → 2ND 06:30
PROVIDERS: Internal Medicine; Admitting Provider Student in an Organized Health Care Education/Training Program; Emergency Provider Emergency Medicine; Visit Provider Student in an Organized Health Care Education/Training Program
PROC: 4A023N7 Measurement of Cardiac Sampling and Pressure, Left Heart, Percutaneous Approach (ICD-10-PCS; CPT 93452; principal; 2025-05-04 13:15)
DX: I21.4 Non-ST elevation (NSTEMI) myocardial infarction (principal); I25.10 Atherosclerotic heart disease of native coronary artery without angina pectoris; M79.632 Pain in left forearm; M79.631 Pain in right forearm; M50.121 Cervical disc disorder at C4-C5 level with radiculopathy; M48.02 Spinal stenosis, cervical region; M51.16 Intervertebral disc disorders with radiculopathy, lumbar region; R91.1 Solitary pulmonary nodule; I11.0 Hypertensive heart disease with heart failure; E78.2 Mixed hyperlipidemia; I25.2 Old myocardial infarction; F17.210 Nicotine dependence, cigarettes, uncomplicated; Z79.899 Other long term (current) drug therapy; Z79.82 Long term (current) use of aspirin; Z88.8 Allergy status to other drugs, medicaments and biological substances
CPT/HCPCS: 93459; 36415; 71045; 71275; 72125; 80053; 80061; 83036; 84443; 84484; 85025; 85347; 85378; 92928; 93005; 93306; 93458; 99152; C1725; C1769; C1874; C9600; G0378; J1200; J1644; J1650; J2003; J2250; J3010; J7040; Q9967

== ENCOUNTER 2025-05-17 10:57 | Day surgery (SDC) | payer BC, SELFPAY ==
[2025-05-17 11:08] VITALS: BP 125/95; PULSE 87; RESP 18; O2SAT 99; BMI 23.1
[2025-05-17] MEDS: BUPIVACAINE 0.25% 10ML INJ 25 MG IJ (11:20)
[2025-05-17 11:21] VITALS: BP 155/95; PULSE 78; RESP 18; O2SAT 99
[2025-05-17] MEDS: LIDOCAINE 1% 5ML PF VIAL 5 ML (11:21)
[2025-05-17 11:24] VITALS: BP 155/95; PULSE 78; RESP 18; O2SAT 99
[2025-05-17 11:30] VITALS: BP 153/92; PULSE 78; RESP 18; O2SAT 96
--- NOTE | 2025-05-17 11:30 | P.PCN_ITS ---
Procedure Date: 05/17/25 Time: 11:20 Anesthesiologist:: Jeremi Garcia CRNA Complications:: None Pre-procedure Diagnosis:: Bilateral sacroiliitis Post-procedure Diagnosis:: Same Indications for Procedure:: Patient is a pleasant 54-year-old female comes our clinic today for diagnostic b ilateral sacroiliac joint injection of local anesthetic. Patient describes low lumbar back pain off the midline bilaterally. Bilateral posterior hip pain. Difficulty transitioning from sitting to standing. She rates her pain 7/10. Procedure Details:: Procedure: Bilateral sacroiliac joint injections under fluoroscopy Informed consent was obtained and the risks and benefits of the procedure were explained to the patient.~ The patient was taken to the procedure room and noninvasive monitors were placed including a noninvasive blood pressure cuff and pulse oximeter.~ The patient was placed prone on the procedure table. Both hips were cleansed using Betadine as a cleansing solution. C-arm fluoroscopy was used to view the right sacroiliac joint.~ The skin and subcutaneous tissues were anesthetized using lidocaine 1.5% and a 25-gauge needle.~ After this, a 22-gauge spinal needle was inserted under fluoroscopic guidance into the inferior aspect of the right sacroiliac joint.~ Omnipaque dye was injected and good spread was seen throughout the joint.~ After this, approximately 5 mL of bupivacaine, 0.25% was incrementally injected into the right sacroiliac joint. We then moved to the left sacroiliac joint.~ The skin and subcutaneous tissues were anesthetized using lidocaine 1.5% and a 25-gauge needle.~ After this, a 22- gauge spinal needle was inserted under fluoroscopic guidance into the inferior aspect of the left sacroiliac joint.~ Omnipaque dye was injected and good spread was seen throughout the joint. After this, approximately 5 mL of bupivacaine, 0.25% was incrementally injected into the left sacroiliac joint.~ The patient tolerated the procedure well with no complications. The patient was observed in the Pain Clinic and then was discharged home neurologically intact. Plan and Disposition:: Patient was reevaluated 10 minutes post procedure. She reports 100% relief in terms of her low lumbar back pain off the midline bilaterally. She was discharged without incident.
== END 2025-05-17 11:30 | disposition home or self-care (01) ==
PROVIDERS: PCP Nurse Practitioner Family; Visit Provider Nurse Anesthetist, Certified Registered
DX: M46.1 Sacroiliitis, not elsewhere classified (principal); M51.369 Other intervertebral disc degeneration, lumbar region without mention of lumbar back pain or lower extremity pain; I25.10 Atherosclerotic heart disease of native coronary artery without angina pectoris; F32.A Depression, unspecified; E78.5 Hyperlipidemia, unspecified; R91.8 Other nonspecific abnormal finding of lung field; I10 Essential (primary) hypertension; F17.210 Nicotine dependence, cigarettes, uncomplicated; Z88.8 Allergy status to other drugs, medicaments and biological substances; Z79.82 Long term (current) use of aspirin; Z79.899 Other long term (current) drug therapy
CPT/HCPCS: 64450; G0260; J0665; J2003

== ENCOUNTER 2025-07-15 14:44 | Day surgery (SDC) | payer BC, SELFPAY ==
[2025-07-15 15:12] VITALS: BP 124/73; PULSE 89; RESP 16; O2SAT 100; BMI 22.7
--- NOTE | 2025-07-15 15:54 | EXP.HP ---
History of Present Illness *Admission Date: 07/15/25 *Reason for visit:: Sacroiliitis *History of present illness: This patient presents for bilateral SI joint injections. [facility] Disclaimer: The information contained in this section may have been updated after the patient was seen, as this information can be updated by other users. Medical History Depression RUQ abdominal pain Thoracic back pain Multiple lung nodules on CT Smoking greater than 30 pack years Dyspnea on exertion Hypertrophy of both inferior nasal turbinates Hoarseness Tobacco use Viral illness Low Back Pain Exposure to COVID-19 virus Tobacco dependence syndrome Tachycardia CAD (coronary artery disease) Encounter for pre-operative cardiovascular clearance Lumbar disc herniation Degenerative disc disease, lumbar Pelvic pain in female Hypertension Hyperlipemia Surgical History History of cardiac cath History of back surgery No significant past surgical history Family History Other No significant family history Social History Smoking Status: Current every day smoker tobacco type: cigarettes packs per day: 1 alcohol intake: never substance use type: denies use current occupational status: employed Travel in the last 8 weeks?: None household members: spouse housing: house caffeine: Yes Have you lived/traveled outside [place] in past 30 days?: No Contact w/someone who lives/traveled outside [place] past 30 days?: No Exposure to someone with infectious disease in past 14 days?: No Do you have a fever (greater than 100.4 F or 38 C)?: No Have you tested positive for COVID-19?: No Exposed to someone with COVID-19 in past 14 days?: No Do you have a sore throat?: No Do you have a cough?: No Do you have any weakness?: No Do you have any diarrhea?: No Are you experiencing any unusual bleeding?: No Do you have any muscle aches/pain?: No Do you have any abdominal pain?: No Are you experiencing loss of taste or smell?: No Other Medical History Have you received the Flu Vaccine for this season: No Have you received the Pneumonia Vaccine: No Review of Systems Review of Systems Review of systems:: pertinent systems reviewed and negative unless documented below Meds Home Medications and Allergies Home Medications ?Medication ?Instructions ?Recorded ?Confirmed ?Type buspirone 10 mg tablet 10 mg PO BID PRN depression 07/14/24 07/15/25 History albuterol sulfate 90 mcg/actuation 2 inh inhalation QID PRN shortness 09/02/24 07/15/25 Rx aerosol inhaler of breath or wheezing 90 days #8.5 grams methocarbamol 500 mg tablet 500 mg PO TID PRN muscle pain #42 04/20/25 07/15/25 Rx tabs aspirin 81 mg tablet,delayed 81 mg PO HS 05/04/25 07/15/25 History release (Adult Low Dose Aspirin) famotidine 20 mg tablet 20 mg PO HS 05/04/25 07/15/25 History prasugrel HCl 10 mg tablet 10 mg PO DAILY 30 days #30 tabs 05/04/25 07/15/25 Rx atorvastatin 80 mg tablet (Lipitor) 80 mg PO HS 30 days #30 tabs 05/05/25 07/15/25 Rx metoprolol succinate 25 mg See Rx Instructions .Route 06/03/25 07/15/25 Rx tablet,extended release 24 hr .COMPLEX #30 tabs gabapentin 100 mg capsule 100 mg PO TID #90 caps 06/22/25 07/15/25 Rx New Prescriptions to Start Prescriptions: Allergies Allergy/AdvReac Type Severity Reaction Status Date / Time lisinopril (LISINOPRIL) Allergy Mild COUGH Verified 06/22/25 15:22 Exam Data for Last 24 hours Vital signs and Labs for Last 24 Hours: Pulse Resp BP Pulse Ox O2 Del Method 89 16 124/73 100 Room Air 07/15/25 15:12 07/15/25 15:12 07/15/25 15:12 07/15/25 15:12 07/15/25 15:12 I & O for Last 24 hours: Intake & Output 07/13/25 07/14/25 07/15/25 07/16/25 11:59 11:59 11:59 11:59 Weight 145 lb *Routine HEENT Exam Head: Present normocephalic Eye: Present EOMI ENT: Present mucous membranes moist *Routine Respiratory Exam Respiratory: Present CTA bilaterally *Routine Cardiovascular Exam Cardiovascular: Present RRR, Normal S1 and Normal S2 *Routine Abdominal Exam Abdominal: Present soft *Routine Rectal Exam Rectal:: deferred *Routine Genitalia Exam Genitalia:: deferred Assessment and Plan *Assessment and plan (1) Bilateral sacroiliitis: Status: Acute Category: Medical Code(s): M46.1 - Sacroiliitis, not elsewhere classified Plan Bilateral SI joint injections under fluoroscopy
--- NOTE | 2025-07-15 15:56 | EXP.PAIN.PRO ---
Procedure Date: 07/15/25 Time: 15:56 Anesthesiologist:: Cullen Simpson MD Complications:: None Pre-procedure Diagnosis:: Sacroiliitis Post-procedure Diagnosis:: Same Indications for Procedure:: Patient is a pleasant 54-year-old white female who presents for bilateral SI joint injections today. She is tender over both SI joints. She has a positive Belia's test bilaterally. She has positive Abida test bilaterally. She has positive SI joint compression test bilaterally. She has positive distraction test bilaterally. Will plan on doing diagnostic bilateral SI joint injections under fluoroscopy today. Procedure Details:: B/L SI joint injection under fluoroscopy Informed consent was obtained and the risks and benefits of the procedure was explained to the patient. The patient was taken to the procedure room and placed prone on the procedure table. The patient was prepped using ChloraPrep. The skin and subcutaneous tissues overlying the SI joints were anesthetized using lidocaine. I placed a 22-gauge needle first in the left SI joint and second in the right SI joint. Needle placement was confirmed with dye. After this we injected 5 mL bupivacaine 0.25% and dexamethasone 10 mg into each SI joint. Patient tolerated the procedure well with no complication. Plan and Disposition:: Will follow-up with this patient in 2 weeks. Will reevaluate symptoms at that time.
[2025-07-15] MEDS: BUPIVACAINE 0.25% 10ML INJ 25 MG IJ (15:58)
[2025-07-15] MEDS: DEXAMETHASONE 10MG/ML 1ML VIAL 10 MG (15:58)
[2025-07-15] MEDS: LIDOCAINE 1% 30ML PF VIAL 30 ML (15:58)
[2025-07-15 15:59] VITALS: BP 137/87; PULSE 99; RESP 18; O2SAT 96
[2025-07-15 16:03] VITALS: BP 134/86; PULSE 77; RESP 16; O2SAT 100
[2025-07-15] MEDS: IOPAMIDOL-200 (41%);10ML VIAL 10 ML IV (16:44)
== END 2025-07-15 16:04 | disposition home or self-care (01) ==
PROVIDERS: PCP Nurse Practitioner Family; Visit Provider Anesthesiology
DX: M46.1 Sacroiliitis, not elsewhere classified (principal); F32.A Depression, unspecified; E78.5 Hyperlipidemia, unspecified; I10 Essential (primary) hypertension; I25.10 Atherosclerotic heart disease of native coronary artery without angina pectoris; F17.210 Nicotine dependence, cigarettes, uncomplicated; Z88.8 Allergy status to other drugs, medicaments and biological substances; Z79.82 Long term (current) use of aspirin; Z79.899 Other long term (current) drug therapy; M47.816 Spondylosis without myelopathy or radiculopathy, lumbar region
CPT/HCPCS: 99221; G0260; J0665; J1100; J2003; Q9966